=== PATIENT | male | born 1975 | race Caucasian/White ===

== ENCOUNTER 2022-01-06 15:46 | Emergency (ER) | payer SELFPAY ==
[2022-01-06 15:48] VITALS: BP 133/66; PULSE 121; RESP 20; TEMP 36.9; O2SAT 95
--- NOTE | 2022-01-06 15:54 | ED.GENADUL_ITS ---
Discharge Plan Disposition Patient Disposition: HOME Condition: Stable Discharge Details Clinical Impression: Delusional disorder Primary Care Provider: None,None ED Provider: Mike Sesay Home Meds and New Rx's Prescriptions: No Action No Known Home Meds Discharge Instructions Additional Instructions: At this time you have declined any work-up in the ER including IV access, laboratory values, urinalysis, etc. Our mental health team has evaluated you and you have declined any voluntary placement and are now requesting discharge. Please call the recommendations of the mental health team. Please watch for new or worsening symptoms and return to the ER for any concerns. Discharge Data Discharge Date/Time-TO BE ENTERED AT DEPARTURE: 01/06/22 19:00 Medical Decision Making This is a 46-year-old gentleman who presents via EMS reporting he had food poisoning earlier in the week and is requesting oral orange juice Tylenol or Benadryl now. Per EMS both they and [facility] police have had interactions with the patient for the past few days, concerned that he may have schizophrenia and noncompliant. Clinically he appears well, nontoxic, no acute distress. He is refusing IV access, or any additional work-up. He has difficulty engaging in his HPI and discusses his critical views, his parents political views, the fact that his grandfather was in World War II, that he has been attempting to find jobs a local [employer], etc. He was witnessed ambulating to the restroom without difficulty and he was drinking water without difficulty. We offered him apple juice as he did not have orange juice and he became upset, declined the apple juice and then the Tylenol. Patient is requesting discharge. He denies any suicidal or homicidal ideations. I do believe that he would benefit from a mental health evaluation; however, he does not appear to pose an immediate threa t to himself or others. Mental health evaluation completed, please see their note. Patient does not wish to seek voluntary placement. He does not meet criteria for involuntary placement. He is awake, alert x3, and he does appear to have capacity to make his own decisions. He does not appear to be under any influence this. He once again is requesting discharge. He has forward thinking, states that he would like to get up to [place] and go to [facility] and then do some camping. Again he denies any suicidal or homicidal ideations. He declines any medical work-up here in the ER Standard discharge and return precautions were provided. Patient understands, is agreeable to this plan, and has no additional questions or concerns upon discharge. This documentation was generated using [employer] system, please disregard any oddities of phrase or misspellings. HPI General Mode of arrival: EMS . Date/Time Provider Initiated Documentation: 01/06/22 15:47 . Limitations to Documentation: no limitations . Information obtained by: patient and EMS . HPI Narrative: This is a 46-year-old gentleman who denies any significant past medical history, presenting to the ER for a self-reported concern of food poisoning earlier in the week; however, EMS reports concern for history of schizophrenia and nonmedical compliance. Apparently the patient has had several encounters with both EMS and [facility] police over the past few days. Patient denies any recent trauma. Patient is currently requesting oral orange juice or lemonade and an oral Benadryl. He reports occasional mild abdominal pain but denies any pain currently. Denies any fever, headache, chest pain, vomiting or diarrhea. Denies change of bowel or bladder function. Patient denies smoking, alcohol use, or drug use. Patient is refusing an IV and only wants oral intake. Unfortunately he is a rather vague and poor historian which makes his HPI rather difficult. Related Data Home Medications Medication Instructions Recorded Confirmed Unknown [No Known Home Meds] 01/06/22 01/06/22 Allergies Allergy/AdvReac Type Severity Reaction Status Date / Time bee venom protein (honey bee) Allergy Unverified 01/06/22 15:53 General Stated Complaint: GenMedical ISAI: 3 Review of Systems Constitutional Constitutional: Denies fatigue, Denies fever(s), Denies headache(s) and Denies weakness Eyes Eyes: Denies change in vision ENT Ears, Nose, Mouth, and Throat: Denies headache(s) and Denies neck pain Cardiovascular Cardiovascular: Denies chest pain and Denies dyspnea Respiratory Respiratory: Denies dyspnea Gastrointestinal Gastrointestinal: Reports abdominal pain (Earlier in the week, resolved now) Musculoskeletal Musculoskeletal: Denies back pain and Denies neck pain Integumentary/Breasts Skin/Breast: Denies rash Neurologic Neurologic: Denies headache(s) and Denies weakness Psychiatric Psychiatric: Denies homicidal ideation and Denies suicidal ideation Endocrine Endocrine: Denies fatigue PFSH All Active Problems Delusional disorder (Acute) Social History Smoking/Tobacco Use Status: Never Smoking risk assessment performed?: Yes Substance use type: does not use Additional Social history: patient states he is homeless. Exam Const General: cooperative, healthy appearing, comfortable and no acute distress Orientation: alert, awake and oriented x3 HENMT Head: normal to inspection, normocephalic and atraumatic Face and sinus: normal facial exam Mouth: moist mucous membranes Eyes General: appearance normal, both eyes and all related structures Conjunctivae: conjunctivae normal Neck Neck: normal visual inspection, full ROM, no meningeal signs, trachea midline and supple Resp Effort & Inspection: normal respiratory effort and able to speak in complete sentences Auscultation: clear to auscultation bilaterally Cardio Rate: tachycardic (108) Rhythm: regular rhythm GI Inspection: normal to inspection Palpation: soft, not firm, no guarding, no pulsatile masses and nontender Back/Spine/Pelvis Back: No back tenderness Skin General skin exam: no rashes or lesions noted Neuro General: patient alert, patient awake, patient oriented x3, moves all extremities and no focal motor deficits Cognition: normal cognition Speech: speech normal Gait: normal gait Motor: muscle tone normal throughout Sensory Exam: no sensory deficits noted Extrem General: normal to inspection, full ROM, capillary refill normal, no pedal edema and no calf tenderness Psych Appearance: grossly normal Mental Status: mental status grossly normal Speech and Movement: pressured speech Mood: anxious mood Affect: animated Attitude: guarded Thought Process: flight of ideas, loose association and tangential Thought Content: delusions, no homicidality and suicidality Insight: fair Judgment: fair Course Vital Signs Vital signs: Vital Signs Temperature 36.9 C 01/06/22 15:48 Pulse 121 H 01/06/22 15:48 Respiratory Rate 01/06/22 15:48 Blood Pressure 133/66 01/06/22 15:48 Pulse Oximetry 95 01/06/22 15:48 Temperature 36.9 C 01/06/22 15:48 Temperature Source Skin 01/06/22 15:48 Pulse 121 H 01/06/22 15:48 Respiratory Rate 01/06/22 15:48 Blood Pressure 133/66 01/06/22 15:48 Blood Pressure Position Right Lateral 01/06/22 15:48 Pulse Oximetry 95 01/06/22 15:48 Oxygen Delivery Method Room Air 01/06/22 15:48 Oxygen Flow Rate 0 01/06/22 15:48 Comment 01/06/22 15:48
[2022-01-06 15:55] VITALS: RESP 20
== END 2022-01-06 19:00 | disposition home or self-care (01) ==
PROVIDERS: Emergency Provider Physician Assistant
DX: F22 Delusional disorders (principal)
CPT/HCPCS: 80053; 87635; 96360; 99284; 80320; 80329; 84443; 85025

== ENCOUNTER 2022-01-06 19:56 | Emergency (ER) | payer SELFPAY ==
--- NOTE | 2022-01-06 21:23 | PDOC.MHCN_ITS ---
Date of service: 01/06/22 Time of Service: 18:00 [facility] Emergency Note Release [facility] release signed:: No Reason for Visit Client arrived at [facility] ED via [facility]. Per ED staff report [facility] received multiple phone calls from concerned citizens and client was found at a nearby car dealership and was disoriented. EMS staff report that client is diagnosed with Schizophrenia and is non-med compliant. In the last 2 weeks has the pt presented for ES prior to today?: No Client Information Client is: New Well Housed: No,status: Homeless Non Suicidal Self Injury Current: No History: No Safety Risk/Harm to Self or Others Current Ideation to Harm Self or Others: No Risk: Does risk to harm exist?: No Risk: N/A Duty to warn indicated: No Asssessment/Mental Status Appearance: Disheveled Attitude: Guarded Behavior: Unremarkable Speech: Pressured Affect: Expansive and Cogruent with mood Mood: Irritable Thought process: Loose associations and Flight of ideas Hallucinations: No Delusions: yes, Bizarre Attention: Wandering Perception: Not impaired Orientation: Fully orientated Memory: Intact Insight: Fair Judgement: Fair Neurovegetative Symptoms Sleep: No change Appetitie: No change Interests: No change Energy: No change Libido: Not applicable Substance Use: Do you use nicotine?: No Have you used substances in the last 7 days?: No Additional Issues: Assaultive/Threatening Behavior: No Medical Concerns: Yes Client engaged in active self harm w/weapon: No Threatening to run away: No Child reported abuse/neglect: No Voluntarily presenting for services: Yes Domestic violence is a concern: No Extreme Psychosis or extreme behavior is present: No Impression Client presents as delusional, however is able to answer this casualty underwriter when asked what today's date, time, and where he is. When asked by this casualty underwriter what brought him to the ED, he states: I was weak I thought I had food poisoning earlier this week, I felt sick, and my legs were tired and felt like they were going to give out. Per ED staff report client refused blood work or IV fluids and would only take an oral antibiotic and orange juice. 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 I have been traveling [place] [facility], I typically have enough money to get a cheap hotel for a couple of days and then I live outside after. This casualty underwriter had phone conversation with [facility], who reports that they had interaction with client earlier in this week and he was hospitalized in the ICU at [facility] due to high blood sugars as a result of his diabetes. When this casualty underwriter asked client about his diabetes, he states: I don't have diabetes it as a miss diagnosis, I used to lift weights and don't anymore. Client then states can they just discharge me, this casualty underwriter asked client if he would be willing to get blood word before being discharged and he refused stating: no I am fine. Resources [facility] reviewed and given:: [id number] Plan/Disposition Recommended Disposition: [facility] Services (Client refused when offered) [facility] Services: Other (Client refused outpatient services). Plan: Client appears to be presenting with delusional thinking, however refuses outpatient or inpatient services when offered by this casualty underwriter. At this time client does not meet criteria for an involuntary hold. Client refuses intake paperwork as well as services offered through [facility] at this time. This casualty underwriter is able to get phone number from client and will check-in with client this weekend on both Sunday and Sunday. Client stated to this casualty underwriter that he will be getting a taxi to [facility] in [place] so he can buy a new sleeping bag. [facility] ES will follow-up with client through the weekend and continue to offer outpatient services through [facility]. Person reported agreement to plan: Yes Reports/communication Outcome discussed with: ED/Personnel (Verbal passover given to ED provider Chuy Sesay. ) Final Disposition/Discharge Transportation Checklist completed and faxed: No
--- NOTE | 2022-01-06 22:03 | NUR.NOTE ---
patient name entered in errorNursing Note:
--- NOTE | 2022-01-17 10:00 | PDOC.MHPN2 ---
Date of service: 01/17/22 Time of Service: 10:00 Mental Health Emergency Note Release [facility] release signed:: No Reason for Visit Client on EE status at [facility], needs 1 daily reassessment and 1 collateral contact from nurse/doctor. In the last 2 weeks has the pt presented for ES prior to today?: No Client Information Client is: New Well Housed: No,status: Homeless Non Suicidal Self Injury Current: No History: No Safety Risk/Harm to Self or Others Current Ideation to Harm Self or Others: No Risk: Does risk to harm exist?: No Risk: Moderate Risk Duty to warn indicated: No Asssessment/Mental Status Appearance: Disheveled and Poor hygiene Attitude: Cooperative Behavior: Repetitive movements Speech: Normal Affect: Expansive and Cogruent with mood Mood: Elevated, Stressed and Anxious Thought process: Flight of ideas, Circumstational and Tangential Hallucinations: yes, Auditory Delusions: yes, Persectory/Paranoid Attention: Wandering and Poor concentration Perception: Not impaired Orientation: Fully orientated Memory: Intact Insight: Poor Judgement: Poor Neurovegetative Symptoms Sleep: No change Appetitie: No change Interests: No change Energy: No change Libido: Not applicable Substance Use: Have you used substances in the last 7 days?: No Additional Issues: Assaultive/Threatening Behavior: No Medical Concerns: Yes Client engaged in active self harm w/weapon: No Threatening to run away: No Child reported abuse/neglect: No Voluntarily presenting for services: No Domestic violence is a concern: No Extreme Psychosis or extreme behavior is present: Yes Plan/Disposition Recommended Disposition: Hospitalization (BR: Declined (med), WC: Too acute, [facility]: Capacity, [facility]: Unsure.) facilities contacted. Facilities contacted if Applicable [facility] Not accepted, Medical reasons [facility] Not accepted, Other (Have not heard back from [facility] Not accepted, Other, [facility] Not accepted, Other [facility] Not accepted, Acuity Reports/communication Outcome discussed with: ED/Personnel
== END 2022-01-06 20:07 ==
DX: Z53.21 Procedure and treatment not carried out due to patient leaving prior to being seen by health care provider (principal)

== ENCOUNTER 2022-01-09 09:39 | Emergency (ER) | payer SELFPAY ==
[2022-01-09] VITALS (9 sets, daily range): BP systolic 116–149; BP diastolic 82–98; PULSE 89–163; TEMP 36.8; O2SAT 94–97
--- NOTE | 2022-01-09 10:19 | ED.GENADUL_ITS ---
Discharge Plan Disposition Patient Disposition: AGAINST MEDICAL ADVICE Condition: Fair Discharge Details Clinical Impression: Acute shoulder pain Primary Care Provider: Unknown,Unknown ED Provider: Tricia Rausch Home Meds and New Rx's Prescriptions: No Action diphenhydramine HCl [Benadryl] 25 mg Capsule 25 mg PO HS PRN PRN Discharge Instructions Instructions: Shoulder Pain (ED) Additional Instructions: As discussed, your right shoulder x-rays are reassuring here today with no evidence of fracture or dislocation. As we discussed, this may be associated with frozen shoulder which can be painful and also limit your range of motion. Please try to encourage range of motion of the shoulder is much as possible. Referral for physical therapy is also attached. Please call at number listed above to schedule follow-up appointment. As we discussed, I am concerned that you have some changes on your EKG that I wanted to evaluate further with blood work. You have declined this service today. Please note you may return anytime should you wish to have further evaluation of this. You have declined a referral to local primary care. If you change your mind, please call the hospital at [phone] and asked to speak with care management team and they can help arrange primary care follow-up. You have also declined assistance with housing. Know that you may call 211 at any time to discuss other housing options. If you develop any fever/chills, chest pain, shortness of breath, inability stay hydrated or any new/worsening symptoms please seek care urgently once again. Otherwise, you may use Tylenol and ibuprofen to help with your shoulder pain. Please try to avoid heavy lifting with that arm and please try to work on range of motion exercises much as possible Stand Alone Forms: Physical Therapy Referral Discharge Data Discharge Date/Time-TO BE ENTERED AT DEPARTURE: 01/09/22 15:22 Medical Decision Making Patient is a 46-year-old male presenting today with chief complaint of right shoulder pain x2 weeks. He reports that this began after carrying a heavy backpack for quite some time. Patient reports that he is homeless, says he has spent amount of money per month and recently began running out of this. She denies any known trauma. No fevers or chills. Denies any cough or cold. Denies any rash. No numbness or tingling. Patient also reports that she slept in her brain last night and suffered macerated tissue to his fingers and toes. Denies rash elsewhere. No other pain. Denies any chest pain or shortness of breath. Denies fevers/chills. Denies numbness/tingling. States he gets fincances from his parents who are in [place]. He denies SI/HI or other thoughts of self harm. On exam, patient appears nontoxic. His vital signs are stable. His feet were ch juan carlos and wet, we do have a warming blanket on these. Because seems to be associated with him having wet shoes overnight. He does have macerated tissue on his thumb and index finger as well as both feet at the great toe. Normal cardiac exam, lungs are clear. Abdomen is benign. No lower extremity edema noted. Quite guarded of the right shoulder. 2+ distal pulses, intact sensation. Full range of motion of the elbow, wrist, hand. However, any type of movement of the shoulder resulted in the patient actively guarding against this indicating the anterior aspect of the shoulders. Point of tenderness. No pain is elicited with palpation. Is not warm, erythematous or swollen. No break in the skin. Patient's story seems slightly unusual as it seems to change and his chief complaint is not always consistent. I am concerned that some of this may be associated with his poor housing and that he is seeking help for this. I have contacted our care managers to come evaluate the patient as well as assist in this and Possible to set up more stable housing for the patient. Regard to the right shoulder, will obtain x-ray to evaluate for any bony abnormality. While patient not having exertional symptoms and denies any chest pain or shortness of breath, I did consider this potentially being an ACS mimic particularly if the patient is a high risk patient given his current housing situation. We will give Tylenol for his shoulder discomfort. As the patient has limited access to food and fluids, will assess for any electrolyte abnormalities. He denies any alcohol or illicit drug use. Will give some IV hydration. ECG reviewed by Dr. Sebastian, concerning for flipped T waves. No previous for comparison. Patient states that he was previously in the [facility] and was without routine housing there. Will reach out to [facility] to see if ey have one for comparison. Patient continues to deny CP, SOB, N/V. Denies PMH of cardiac issues. [facility] advised that patient was recently admitted, they will send d/c summary. Patient refuses blood draw or IV placement. Offered US IV and he declines. While he does have some unusual answers, he is A&O x 3 and is answering appropriately. Demonstrates capcity. He states that when recently admitted, he was given diagnoses that he did not agree with such as DM. States that he used to exercise on a routine basis, eats healthy and has no changes with his dietary intake. I advised that I am concerned about his glucose despite his disbelief in the dx, concerned for his heart. He is able to verbalize back to me these concerns and continues to decline blood draw, glucose check- even via finger stick, or IV. Exam is limited by lack of pulmonary inflation and patient arm positioning. HEART: Normal size.? Aorta: Not dilated. PULMONARY VASCULATURE: Normal. LUNGS: Expiratory changes.? Basilar infiltrates cannot be excluded. PLEURAL SPACE: No pleural effusion or pneumothorax. BONE:Unremarkable for age.? IMPRESSION: Limited exam.? Bibasilar atelectasis versus infiltrates. BONES: No acute fracture is present. No bony destructive lesion is seen. JOINTS: No dislocation present. SOFT TISSUE: Normal. IMPRESSION: Unremarkable radiographs of the right shoulder. Discussed with patient. He has no cough, fevers/chills. Denies recent URI symptoms. Care management evaluated hte patient. I am concerned about his overal well being. He is alert and oriented, appropriate, although odd. He has clear goals and wants of treatment. He reports to myself and care management that he has access to money through parents. He did give me permissiont o call dad, I called and left message. He declines help with housing, decline help with finances, access to food. He declines PCP. Again, demonstrates capacity in this decision. Reviewed notes from [facility]. T wave inversions appear to be new from their previous. Had presented to their ED on 12/21/21 for weakness, was disoriented. Had been having body aches, nausea. 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 Of note, patient states that he changed from the [facility] to [employer] as he wants to apply for job at the [employer]. When in the ED, he expressed disbelief in having DM. Was febrile at th. time ofadmission. While he iniitally refused treatment in the ED, he was more accepting as inpatient. While admitted, was diagnosed with mild DKA, nyponatremia, elevated troponin, AMS, thought ot be untreated bipolar. At the time of d/c, patient started on metformin, glipizide, glargine, TID glucose checks, sliding scale lispro. At that time, they had concerns regarding disposition and patient continuing with the plan. Patient was also diagnosed with bacteremia, concluded 9 days of cephalexin. On 12/29, patient was evaluated by their crisis team and advised that they could not hospitalize the patient for psychiatric reasons against his will. He requested bus to [facility] at the time of d/c. While admitted, patient had abdominal CT which was unremarkable. CT head limited d/t motion. Syphilis neg, Tick/Lyme panel negative. He did have elevated troponin. Glucose was routinely elevated with A1C of 11.8. Leukocytosis, Hgb 11.4. Negative COVID. Patient and I again discussed my concerns. We discussed his admission as above. We discussed his ECG findings. We discussed his MH. Patient continued to be clear and demonstrate capcity. He is able to explain why he does not feel that he has DM, his plan for the future. 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 Likes to be in [place] rather than in [place] with family as he likes the cool weather. He wants to go to coffee shop. Has phone and computer with him. Has contact information for parents in event he needs more money. I am concerned that patient has undiagnosed/untreated medical illness that may be acute or acute on chronic. Despite voicing my concerns and patient being able to reiterate this back to me, he does not want any further medical intervention. Patient has capcity to make this decision. He is aware he may return at any time. We discussed care of his shoulder pain. I gave him contact information for local PCP adn other support survises, as did care management and SBIRT. Strict return precautions given, he is leaving the department against m edical advise. Called Dad, Salbador Perez, , with patient permission, to discuss his curent state, my concerns. After patient left against medical advise, dad called back. He states that his son has been diagnosed half way between schizophrenia and bipolar. He reports that he had a mental break down when getting his phd. Dad states, I have been trying to get hime home for the past 15 years. He reports that he was bouncing around from state to state fo several years. He has been helping him financially, has tried to get him into programs. He has been put on [place] in the past but always refuses to take it. Every time Salbador is successful at getting him home, he states that Mike will leave and refuses to stay. He states that he is highly inteligent but continues to refuse treatment or contined care. He states he has, tried everything to get him home and stay in treatment but that nothing is successful. He has a phone and computer. He states that patient is his own guardian. After patient was d/c AMA, MH from [facility] came to EE the patient. We discussed that at this time, patient has capacity to refuse care. I offered for her to evaluate the patient but she has declined. She is concerned that P had been out to see him over the weekend although it was EMS that brought in him in today. EE was being sought as they were concerned he had an unknown psychiatric diagnosis and was homeless. She was offered to see the patient in a room and she declined. HPI General Date/Time Provider Initiated Documentation: 01/09/22 09:49 . Limitations to Documentation: no limitations . Information obtained by: patient, EMS, RN notes reviewed and old records reviewed (requested old records from [facility]) . History of Present Illness 46 year old M presents to the emergency department with the chief complaint of right shoulder pain, described as severe, with intensity rated at 8. Quality is described as burning and aching, and is localized to the right and upper extremity. Patient reports no radiation. Patient started experiencing this week(s) and it has been constant. Immobilization improves symptom(s), Movement worsens symptoms (especially carrying backpack) . Patient notes rash (skin break down from being wet over night); denies confusion, chest pain, cough, diaphoresis, fever/chills, headaches, loss of appetite, malaise, nausea/vomiting, shortness of breath, syncope and weakness. Patient did receive the following treatments prior to arrival, none Related Data Home Medications Medication Instructions Recorded Confirmed diphenhydramine HCl 25 mg capsule 25 mg PO HS PRN PRN 01/09/22 01/09/22 (Benadryl) Allergies Allergy/AdvReac Type Severity Reaction Status Date / Time bee venom protein (honey bee) Allergy Unverified 01/09/22 23:16 General Stated Complaint: GenMedical ISAI: 3 Review of Systems Constitutional Constitutional: Reports as per HPI, Denies chills, Denies fever(s), Denies headache(s), Denies lethargy, Denies poor appetite and Denies weakness Eyes Eyes: Denies change in vision ENT Ears, Nose, Mouth, and Throat: Denies dizziness, Denies headache(s) and Denies disequilibrium Cardiovascular Cardiovascular: Reports as per HPI, Denies dyspnea and Denies dyspnea on exertion Respiratory Respiratory: Reports as per HPI, Denies chest congestion, Denies cough, Denies pain on inspiration, Denies pain with cough, Denies dyspnea, Denies dyspnea on exertion and Denies wheezing Gastrointestinal Gastrointestinal: Reports as per HPI, Denies abdominal pain, Denies diarrhea, Denies nausea and Denies vomiting Genitourinary Genitourinary: Denies system reviewed and no additional complaints, except as documented (denies change in urinary habits) Musculoskeletal Musculoskeletal: Reports as per HPI, Denies abnormal gait and Denies back pain Integumentary/Breasts Skin/Breast: Reports as per HPI Neurologic Neurologic: Reports as per HPI, Denies abnormal gait, Denies behavioral changes (homeless, received money from parents for housing and food), Denies dizziness, Denies headache(s), Denies radicular pain, Denies paresthesias, Denies disequilibrium and Denies weakness Psychiatric Psychiatric: Denies anxiety, Denies behavioral changes (homeless, received money from parents for housing and food), Denies hopelessness, Denies mood swings, Denies panic attacks, Denies visual hallucinations, Denies hallucinations, Denies tactile hallucinations, Denies homicidal ideation and Denies suicidal ideation Allergic/Immunologic Allergic/Immunologic: Denies wheezing PFSH All Active Problems (Updated 01/10/22 @ 07:14 by Romie Robles MD) Schizoaffective disorder (Acute) Uncontrolled diabetes mellitus with hyperglycemia (Acute) Acute shoulder pain (Acute) Medical History (Updated 01/10/22 @ 07:14 by Romie Robles MD) Diabetes mellitus Schizoaffective disorder Surgical History (Updated 01/10/22 @ 01:01 by Romie Robles MD) No significant past surgical history Social History Smoking/Tobacco Use Status: Never Smoking risk assessment performed?: Yes Alcohol Intake: never Additional Social history: Pt is homeless he has been sleeping outdoors for over 3 months now. Exam Const General: cooperative, comfortable, no acute distress, well developed, disheveled and ill appearing chronically Nutritional Appearance: well nourished and overweight Orientation: alert, awake, oriented x3, oriented to person, oriented to place and oriented to time HENMT Head: normal to inspection Ears: hearing grossly normal bilaterally Mouth: moist mucous membranes Eyes General: appearance normal, both eyes and all related structures Pupils: PERRL and normal by confrontation EOM: EOM intact bilaterally Neck Neck: normal visual inspection, full ROM, no lymphadenopathy and no meningeal signs Chest Chest: normal inspection of the chest, normal palpation of entire chest wall and no crepitus Resp Effort & Inspection: normal respiratory effort, able to speak in complete sentences and no respiratory distress Auscultation: clear to auscultation bilaterally, no rales, no rhonchi and no wheezes Cardio Rate: regular rate Rhythm: regular rhythm Heart Sounds: S1 normal and S2 normal GI Inspection: normal to inspection, no edema and non-distended Palpation: soft, no hepatosplenomegaly, not firm, no guarding, not rigid and nontender Auscultation: normal bowel sounds Back/Spine/Pelvis Back: no CVA tenderness Thoracic/Lumbar Spine: thoracic and lumbar spine normal to inspection Skin General skin exam: other (wet, sloughing skin to thumb/index tip bilaterally, great toes) Neuro General: patient alert, patient awake and patient oriented x3 Cranial Nerves: CN's II-XI intact bilaterally Cognition: normal cognition Speech: speech normal Gait: normal gait Motor: muscle tone normal throughout, strength 5/5 throughout, no pronator drift and no movement abnormalities noted Coordination: [id number] test normal and otfe-rh-hyvb test normal Extrem General: abnormal to inspection (skin breakdown as above), capillary refill normal, no pedal edema, no calf tenderness and normal gait Shoulder/upper arm images: 1. frantz of maximal tenderness as indicated by the patient. No pain with palpation. Limited ROM with active and passive ROM. Full ROM of elbow, wrist, hand. 2+ distal pulses. Sensation intact. Neuro exam WNL with normal strength. No deformity. No erythema, warmth, fluctuance, drainage. Psych Appearance: grossly normal and disheveled Mental Status: mental status grossly normal Speech and Movement: speech and movement normal (clear answers but unusual pauses in speech pattern) Mood: congruent mood Affect: indifferent Attitude: cooperative and guarded Thought Process: normal Thought Content: normal, no homicidality and suicidality Insight: fair Judgment: fair Course Vital Signs Vital signs: Vital Signs Temperature 36.8 C 01/09/22 09:39 Pulse 98 H 01/09/22 09:39 Blood Pressure 116/96 H 01/09/22 09:39 Pulse Oximetry 97 01/09/22 09:39 Temperature 36.8 C 01/09/22 09:39 Temperature Source Oral 01/09/22 09:39 Pulse 98 H 01/09/22 09:39 Respiratory Effort Non-Labored 01/09/22 10:01 Respiratory Depth Normal 01/09/22 10:01 Respiratory Pattern Normal 01/09/22 10:01 Blood Pressure 116/96 H 01/09/22 09:39 Pulse Oximetry 97 01/09/22 09:39 Oxygen Delivery Method Room Air 01/09/22 09:39 Oxygen Flow Rate 0 01/09/22 09:39 Pain Level 8 01/09/22 09:39
--- NOTE | 2022-01-09 10:30 | RT.EKG_ITS ---
APPROVED REPORT Exam: Resting ECG Reason for Exam: shoulder pain Patient Location: E HR:98 bpm ECG Measurements Heart Rate 98 AXIS SD 117 P 53 QRSd 88 QRS 61 QT 390 T 199 QTc 499 Conclusion Sinus rhythm...normal P axis, V-rate 60- 99 Probable left atrial enlargement...P >50mS, <-0.10mV V1 Abnormal T, consider ischemia, diffuse leads...T <-0.20mV, ant/lat/inf no STEMI, non-diagnostic EKG I have reviewed and interpreted ECG and agree with software generated interpretation.
--- NOTE | 2022-01-09 10:30 | DI.RAD_ITS ---
Exam(s) XR SHOULDER RT COMPLETE 2+V EXAM: XR SHOULDER RT COMPLETE 2+V CLINICAL HISTORY: anterior pain. TECHNIQUE: 2D digital imaging was performed. Five views. COMPARISON: No exams were available for comparison FINDINGS: BONES: No acute fracture is present. No bony destructive lesion is seen. JOINTS: No dislocation present. SOFT TISSUE: Normal. IMPRESSION: Unremarkable radiographs of the right shoulder. DATA REPOSITORY: RADIATION DOSE DELIVERED:
--- NOTE | 2022-01-09 10:30 | DI.RAD_ITS ---
Exam(s) XR CHEST 2V PA LATERAL EXAM: XR CHEST 2V PA LATERAL CLINICAL HISTORY: shoulder pain TECHNIQUE: 2D digital imaging was performed. COMPARISON: CR XR SHOULDER RT COMPLETE 2+V from 01/09/2022 FINDINGS: Exam is limited by lack of pulmonary inflation and patient arm positioning. HEART: Normal size. Aorta: Not dilated. PULMONARY VASCULATURE: Normal. LUNGS: Expiratory changes. Basilar infiltrates cannot be excluded. PLEURAL SPACE: No pleural effusion or pneumothorax. BONE:Unremarkable for age. IMPRESSION: Limited exam. Bibasilar atelectasis versus infiltrates. DATA REPOSITORY: RADIATION DOSE DELIVERED:
[2022-01-09] MEDS: Acetaminophen 500 MG TAB 1000 MG PO (11:06)
--- NOTE | 2022-01-09 17:51 | PDOC.ERCMPRO ---
- If Service Date Differs Date of service: 01/09/22 Time of Service: 17:51 Care Management Progress Note CM consulted by provider due to Yadiel's presentation, lack of social supports, housing etc. Yadiel closed his eyes when speaking to CM, and stated everyone is asking me all these questions. He reviewed information r/t natural supports; parents reside in [facility] [place] and provide financial support. Yadiel reports coming to [facility] seeking employment and having funds at that time to stay in hotels. He reports running out of money but does not share where he has been staying. When CM inquired to his plan he reported calling 211 but shares he was ineligible the last time he called. When this information was reviewed he reported he had a number in his backpack, he could call via the cellphone in his backpack. He declined further support, and shared he did not want to call 211 at this time. He also reported not wanting to attach to PCP at this time. RAFIQ reviewed above with ROMAIN Lundy.
--- NOTE | 2022-01-09 23:22 | PDOC.MHCN_ITS ---
Date of service: 01/09/22 Time of Service: 23:00 Mental Health Emergency Note Release [facility] release signed:: No Reason for Visit MH Warrant. Please see warrant for more information. In the last 2 weeks has the pt presented for ES prior to today?: Yes, presented at ([facility], [facility], [facility] ED and ED at another facility Client Information Client is: New Well Housed: No,status: Homeless Unstable housing Non Suicidal Self Injury Current: No History: No Safety Risk/Harm to Self or Others Current Ideation to Harm Self or Others: No Risk: Does risk to harm exist?: yes. Access to means: No. Risk: High Risk Duty to warn indicated: No Asssessment/Mental Status Appearance: Disheveled and Poor hygiene Attitude: Cooperative and Guarded Behavior: Poor impulse control, Agitated and Gait disturbances Speech: Pressured, Loud and Incoherent Affect: Flat Mood: Euthymic Thought process: Racing, Loose associations and Tangential Hallucinations: yes, (Client appears to be experiencing hallucinations, as he stops conversation to mumble to himself and stare off into the distance. ) Auditory Delusions: No Attention: Poor concentration Perception: Derealization Orientation: Disoriented in (Client appears to be disoriented x4. Occassionally client shows orientation to place. ) Time, Place, Person and Situation Memory: Impaired in: Immediate and Recent Insight: Poor Judgement: Poor Neurovegetative Symptoms Sleep: Decrease Appetitie: No change Interests: No change Energy: No change Libido: Not applicable Substance Use: Do you use nicotine?: No Have you used substances in the last 7 days?: No Additional Issues: Assaultive/Threatening Behavior: No Medical Concerns: Yes Client engaged in active self harm w/weapon: No Threatening to run away: No Child reported abuse/neglect: No Voluntarily presenting for services: No Domestic violence is a concern: No Extreme Psychosis or extreme behavior is present: Yes Impression Client presents with poor insight and judgement and has continuously demonstrated an inability to manage his mental health symptoms and medical needs independently, or with community supports. Client is presenting with symptoms that are consistent with his diagnosis of schizoaffective disorder, including disorganized thought process, odd behaviors, impaired communication and possible hallucinations. Yadiel is refusing prescribed medications, his insulin, and voluntary treatment options. Due to persistent and pervasive mental illness and corresponding decompensation concerns, Yadiel should be considered as a person in need of short-term intensive treatment to stabilize symptoms to a manageable level. Resources Reosurces reviewed and given:: 988, Crisis Bed, [facility] and Other Plan/Disposition Recommended Disposition: Hospitalization No and Other (Second certification by psychiatrist to determine whether or not the client requires involuntary inpatient treatment. ). Plan: Client will remain at [facility] to wait for screening by psychiatrist to determine whether or not the client requires involuntary inpatient treatment. Person reported agreement to plan: No Reports/communication Outcome discussed with: ED/Personnel
== END 2022-01-09 15:22 | disposition left against medical advice (07) ==
PROVIDERS: Emergency Provider Physician Assistant
DX: M25.511 Pain in right shoulder (principal); E11.9 Type 2 diabetes mellitus without complications; Z59.00 Homelessness unspecified; Z53.20 Procedure and treatment not carried out because of patient's decision for unspecified reasons; L98.8 Other specified disorders of the skin and subcutaneous tissue; R94.31 Abnormal electrocardiogram [ECG] [EKG]
CPT/HCPCS: 80053; 93005; 96360; 99284; 71046; 73030; 83735; 84484; 85025; 93010

== ENCOUNTER 2022-01-09 22:56 | Emergency (ER) | payer SELFPAY ==
[2022-01-09 23:12] VITALS: BP 157/85; PULSE 118; RESP 20; TEMP 37.3; O2SAT 92
--- NOTE | 2022-01-09 23:30 | RT.EKG_ITS ---
APPROVED REPORT Exam: Resting ECG Reason for Exam: tachycardia Patient Location: E HR:111 bpm ECG Measurements Heart Rate 111 AXIS KS 123 P 52 QRSd 84 QRS 65 QT 377 T 233 QTc 513 Conclusion Gender not entered, assumed to be male for purpose of ECG interpretation Sinus tachycardia...rate> 99 Probable left atrial enlargement...P >50mS, <-0.10mV V1 Abnormal T, consider ischemia, diffuse leads...T <-0.20mV, ant/lat/inf Prolonged QT interval...QTc >500mS I have reviewed and interpreted ECG and agree with software generated interpretation. There are no significant changes compared to prior EKG performed on 01/09/2022 at 10:42.
--- NOTE | 2022-01-09 23:34 | ED.GENADUL_ITS ---
Discharge Plan Disposition Patient Disposition: [facility] Condition: Serious Discharge Details Clinical Impression: Schizoaffective disorder, Diabetes mellitus, Anemia Primary Care Provider: Unknown,Unknown ED Provider: Hi Cardoza Home Meds and New Rx's Prescriptions: No Action diphenhydramine HCl [Benadryl] 25 mg Capsule 25 mg PO HS PRN PRN Discharge Data Discharge Date/Time-TO BE ENTERED AT DEPARTURE: 01/25/22 18:42 Medical Decision Making <Romie Robles MD - Last Filed: 01/10/22 07:14> Patient presenting on emergency evaluation. In regards to his mental health I do feel the patient is a harm to self due to his mental condition and lack of insight and judgment and ability to care for self. He did agree to labs, EKG, IV, fluids. Of note he is markedly hyperglycemic with a glucose of 751. Sodium is low but corrects to 132. Bicarb is normal and there are no ketones in his urine. He has fairly significant anemia which is microcytic. Potassium is normal. BUN and creatinine are somewhat elevated likely due to to dehydration. Liver function is okay. TSH elevated but free T4 negative. Alcohol, acetaminophen, salicylate, drug screen all negative. At this point we will plan for IV fluid hydration and regular insulin subcutaneous until we have better control of his blood glucose. Per [facility] records he is supposed to be taking oral medications in attempt to control blood sugar. After 2 L normal saline infused repeat fingerstick is just above 500. We will continue saline at 200/h. Ordered for 8 units regular insulin subcutaneous. We will repeat BMP at 7 AM. Medical Records Medical records reviewed: Yes I reviewed the patient's medical records. Medical records narrative: Obtained records from [facility] Lab Data Lab results reviewed: Yes I reviewed the patient's lab results. ECG Data Attestation: I personally reviewed and interpreted this ECG (s) as follows: Prior ECG tracings: available for review Interpretation: See EKG. <Greg Mart MD - Last Filed: 01/27/22 16:53> Lab Data Lab results narrative: Received signout from Dr. Robles for the day shift of January 10. Following fluids and insulin the patient's chemistries improved. Sodium emmanuelle to 131, potassium 3.9, chloride 95, bicarb 27, BUN 18, creatinine 1.0. Patient ate a morning meal, was given metformin which I have scheduled twice daily, and additional 5 units of regular insulin with the morning meal. He was given Ativan both for nausea and anxiety. He states to me that he does not take ongoing psychiatric medications. Labs: Laboratory Results - last 24 hr 01/09/22 01/09/22 01/09/22 23:30 23:30 23:30 WBC 11.22 H RBC 3.32 L Hgb 8.7 L Hct 27.3 L MCV 82 MCH 26.2 L MCHC 31.9 L RDW 13.1 Plt Count 469 H MPV 10.1 Immature Gran % 0.8 Neutrophils % 73.4 Lymphocytes % 16.4 Monocytes % 8.3 Eosinophils % 0.4 Basophils % 0.7 Nucleated RBC % 0.0 Absolute Neutrophils 8.24 H Absolute Lymphocytes 1.84 Absolute Monocytes 0.93 H Absolute Eosinophils 0.04 Absolute Basophils 0.08 Sodium 122 L* Potassium 4.8 Chloride 86 L Carbon Dioxide 27.0 Anion Gap 9.0 BUN 27 H Creatinine 1.6 H Est GFR (CKD-EPI 2020) 53.15 Glucose 751 H* Calcium 8.7 Total Bilirubin 0.2 AST 19 ALT 32 Alkaline Phosphatase 131 H Total Protein 7.8 Albumin 2.3 L TSH 5.96 H Free T4 1.37 Urine Color Urine Clarity Urine pH Ur Specific [place] Urine Protein Urine Ketones Urine Blood Urine Nitrite Urine Bilirubin Urine Urobilinogen Ur Leukocyte Esterase Urine RBC Urine WBC Ur Epithelial Cells Urine Crystals Urine Bacteria Urine Casts Urine Mucus Ur Culture Indicated? Urine Glucose Salicylates < 2.8 Urine Opiates Screen Urine Methadone Screen Acetaminophen < 2 Ur Barbiturates Screen Ur Tricyclics Screen Ur Amphetamines Screen U Benzodiazepines Scrn Urine Cocaine Screen Ur THC Screen Ethyl Alcohol < 3.0 COVID-19 Source 01/10/22 01/10/22 01/10/22 00:05 00:05 00:13 WBC RBC Hgb Hct MCV MCH MCHC RDW Plt Count MPV Immature Gran % Neutrophils % Lymphocytes % Monocytes % Eosinophils % Basophils % Nucleated RBC % Absolute Neutrophils Absolute Lymphocytes Absolute Monocytes Absolute Eosinophils Absolute Basophils Sodium Potassium Chloride Carbon Dioxide Anion Gap BUN Creatinine Est GFR (CKD-EPI 2020) Glucose Calcium Total Bilirubin AST ALT Alkaline Phosphatase Total Protein Albumin TSH Free T4 Urine Color Yellow Urine Clarity Clear Urine pH 6.5 Ur Specific [place] <= 1.005 Urine Protein Negative Urine Ketones Negative Urine Blood Trace-lysed H Urine Nitrite Negative Urine Bilirubin Negative Urine Urobilinogen 0.2 Ur Leukocyte Esterase Negative Urine RBC 0-2 Urine WBC 5-10 Ur Epithelial Cells Few Urine Crystals Negative Urine Bacteria Rare Urine Casts Negative Urine Mucus Negative Ur Culture Indicated? Yes Urine Glucose >=1000 H Salicylates Urine Opiates Screen Negative Urine Methadone Screen Negative Acetaminophen Ur Barbiturates Screen Negative Ur Tricyclics Screen Negative Ur Amphetamines Screen Negative U Benzodiazepines Scrn Negative Urine Cocaine Screen Negative Ur THC Screen Negative Ethyl Alcohol COVID-19 Source Nasal/Nares 01/10/22 07:30 WBC RBC Hgb Hct MCV MCH MCHC RDW Plt Count MPV Immature Gran % Neutrophils % Lymphocytes % Monocytes % Eosinophils % Basophils % Nucleated RBC % Absolute Neutrophils Absolute Lymphocytes Absolute Monocytes Absolute Eosinophils Absolute Basophils Sodium 131 L D Potassium 3.9 Chloride 95 L Carbon Dioxide 27.0 Anion Gap 9.0 BUN 18 Creatinine 1.0 Est GFR (CKD-EPI 2020) 93.42 Glucose 378 H Calcium 8.7 Total Bilirubin AST ALT Alkaline Phosphatase Total Protein Albumin TSH Free T4 Urine Color Urine Clarity Urine pH Ur Specific [place] Urine Protein Urine Ketones Urine Blood Urine Nitrite Urine Bilirubin Urine Urobilinogen Ur Leukocyte Esterase Urine RBC Urine WBC Ur Epithelial Cells Urine Crystals Urine Bacteria Urine Casts Urine Mucus Ur Culture Indicated? Urine Glucose Salicylates Urine Opiates Screen Urine Methadone Screen Acetaminophen Ur Barbiturates Screen Ur Tricyclics Screen Ur Amphetamines Screen U Benzodiazepines Scrn Urine Cocaine Screen Ur THC Screen Ethyl Alcohol COVID-19 Source HPI <Romie Robles MD - Last Filed: 01/10/22 07:14> General Mode of arrival: ambulatory . Date/Time Provider Initiated Documentation: 01/09/22 23:34 . Information obtained by: patient, RN notes reviewed and old records reviewed . HPI Narrative: Patient is brought in by police on a warrant for emergency evaluation. Per mental health worker patient has a prior history of schizoaffective disorder. He is originally from [place]. He has been traveling up and down the [facility] for a few years now. Patient with admission at [facility] earlier this month for cellulitis, bacteremia, uncontrolled diabetes. His care was hindered to some degree by his schizoaffective disorder. Ultimately did receive treatment for his medical condition and was discharged. He has subsequently made his way to [facility] where he is already had contact with mental health, [facility], [facility]. At this time patient is on warrant for emergency evaluation. At the time of my evaluation the patient is mostly calm and cooperative. He is extremely tangential, disorganized, unable to remain focused. His speech is rapid but fluent. Freely admits to not taking any of his medications. Does state that he feels tired and dehydrated. His last interaction with [facility] was tonight while the warrant was being processed. Patient was observed to be walking down the middle of the street urinating as he was going seemingly oblivious to traffic or danger. He was taken into protective custody, warrant completed, patient brought here for emergency evaluation. Related Data Home Medications Medication Instructions Recorded Confirmed diphenhydramine HCl 25 mg capsule 25 mg PO HS PRN PRN 01/09/22 01/09/22 (Benadryl) Allergies Allergy/AdvReac Type Severity Reaction Status Date / Time bee venom protein (honey bee) Allergy Unverified 01/09/22 23:16 General Stated Complaint: PsychEval ISAI: 3 Review of Systems <Romie Robles MD - Last Filed: 01/10/22 07:14> Unobtainable due to mental condition PFSH <Romei Robles MD - Last Filed: 01/10/22 07:14> All Active Problems (Updated 01/22/22 @ 19:41 by Dominic Sebastian MD) Anemia (Chronic) Tinea pedis (Acute) Diabetes mellitus (Chronic) Acute electrocardiogram changes (Chronic) Uncontrolled type 2 diabetes mellitus with hyperglycemia (Acute) Schizoaffective disorder (Acute) Acute shoulder pain (Acute) Medical History (Updated 01/22/22 @ 19:41 by Dominic Sebastian MD) Diabetes mellitus Schizoaffective disorder Surgical History (Updated 01/10/22 @ 01:01 by Romie Robles MD) No significant past surgical history Social History Smoking/Tobacco Use Status: Never Smoking risk assessment performed?: Yes Alcohol Intake: never Additional Social history: Pt is homeless he has been sleeping outdoors for over 3 months now. Exam <Romie Robles MD - Last Filed: 01/10/22 07:14> Narrative Exam Narrative: Const: WDWN male in NAD but dishelved, disorganized and dirty. HEENT: NC/AT. Normal facial exam. Eyes: Normal conjunctiva and sclera. Neck: Supple. Trachea midline. Lungs: Normal respiratory effort. Lungs are clear. Cor: RRR without murmur/gallop. Good radial pulses. Tachycardic. GI: Soft. NT/ND. No guarding or rebound. Back: Normal ROM. Neuro: A+O x 2. Normal speech but tangential and rapid. Disorganized thinking and unable to maintain focus. Cranial nerves II - XII grossly intact. No gross motor or sensory deficit. Ext: No C/C. Bilateral pedal edema. Skin: Warm and dry without rash or erythema. Some open sores possible insect bites. Psych: Flat affect but normal mood. Rapid speech with inability to remain focused and disorganized thought process. Lacks insight into his condition and lacks judgment in regards to his own wellbeing. Course <Romie Robles MD - Last Filed: 01/10/22 07:14> Vital Signs Vital signs: Vital Signs Temperature 99.2 F 01/09/22 23:12 Pulse 118 H 01/09/22 23:12 Respiratory Rate 20 01/09/22 23:12 Blood Pressure 157/85 H 01/09/22 23:12 Pulse Oximetry 92 01/09/22 23:12 Temperature 99.2 F 01/09/22 23:12 Temperature Source Oral 01/09/22 23:12 Pulse 118 H 01/09/22 23:12 Respiratory Rate 20 01/09/22 23:12 Blood Pressure 157/85 H 01/09/22 23:12 Blood Pressure Position Sitting 01/09/22 23:12 Pulse Oximetry 92 01/09/22 23:12 Oxygen Delivery Method Room Air 01/09/22 23:12 Oxygen Flow Rate 0 01/09/22 23:12 Pain Level 8 01/09/22 23:12 Comment 01/09/22 23:12 Sign Out <Romie Robles MD - Last Filed: 01/10/22 07:14> Sign Out Data: Sign Out Comment: Patient has BMP pending this morning and will need potentially further insulin dosing until blood sugar better controlled. He is on an EE pending second certification. Has been calm and cooperative overnight. Last updated by Romie Robles MD at 01/10/22 07:50 Sign Out Comment: EE. Continues to refuse meds and have outbursts at times but able to be redirected. Continue to monitor overnight while awaiting placement. Last updated by Ila Hernandez DO at 01/13/22 23:03 Sign Out Comment: EE. Awaiting placement. Poorly controlled DM (intermittently not taking his metformin), Given subq insulin this morning with breakfast Last updated by Wally Dove MD at 01/14/22 07:37 Sign Out Comment: ee for decompensated schizophrenia, on sliding scale insulin as he has repeatedly refused metformin Last updated by Hi Cardoza MD at 01/14/22 17:54 Sign Out Comment: No events overnight. Awaiting placement. Last updated by Ila Hernandez DO at 01/15/22 07:02 Sign Out Comment: no events during the day Last updated by Hi Cardoza MD at 01/15/22 18:36 Sign Out Comment: No events overnight. Awaiting placement. Last updated by Ila Hernandez DO at 01/16/22 01:15 Sign Out Comment: Patient signed out to Dr. Dove at time of shift change awaiting inpatient placement. Last updated by Cassandra Sebastian MD at 01/16/22 15:42 Sign Out Comment: EE. Awaiting placement. Mental health to reassess in AM. If other psych patient upstairs gets placed beforehand, consider [facility] admission Last updated by Wally Dove MD at 01/16/22 23:04 Sign Out Comment: Continues on EE and awaiting placement. Still rambling overnight and mildly agitated but overall no issues. Last updated by Romie Robles MD at 01/17/22 08:00 Sign Out Comment: no issues during the day Last updated by Hi Cardoza MD at 01/17/22 18:46 Sign Out Comment: 2nd cert performed. Glucose improved to mid 300's. Last updated by Greg Mart MD at 01/10/22 18:34 Sign Out Comment: No issues overnight. Remains on EE and still continuously t alking to self in the room, periodically becoming somewhat agitated. Overall redirectable and cooperative. Last updated by Romie Robles MD at 01/18/22 07:32 Sign Out Comment: EE. Awaiting placement. Last updated by Dominic Sebastian MD at 01/18/22 16:00 Sign Out Comment: EE. Awaiting placement. Last updated by Ila Hernandez DO at 01/18/22 23:30 Sign Out Comment: Awaiting inpatient psychiatric treatment placement. EE. Last updated by Dominic Sebastian MD at 01/19/22 08:04 Sign Out Comment: still pending placement, no issues during the day Last updated by Hi Cardoza MD at 01/19/22 17:04 Sign Out Comment: Patient stable after my shift. Pending placement. Last updated by Goyo Harding DO at 01/20/22 00:30 Sign Out Comment: No issues overnight, remains stable and unchanged. Last updated by Romie Robles MD at 01/20/22 07:26 Sign Out Comment: no issues during the day Last updated by Hi Cardoza MD at 01/20/22 17:11 Sign Out Comment: code farfan this evening; calmed after we were going to give him meds; awaiting placement Last updated by Wally Dove MD at 01/20/22 23:15 Sign Out Comment: No events overnight. Awaiting placement. Last updated by Ila Hernandez DO at 01/21/22 03:43 Sign Out Comment: Blood sugars better and patient taking his glucophage. Will need to continue to follow and dose with insulin as needed. He is pending placement after 2nd certification yesterday. Last updated by Romie Robles MD at 01/11/22 07:43 Sign Out Comment: Patient awaiting psychiatric treatment placement. Patient intermittently screaming obscenities and specifically stating kill the children repetitively. Patient did have a code valadez earlier this afternoon when he initially refused to go back in his room demanding that we provide his bag. De-escalation was successful and patient has since been cooperative and calm. Last updated by Dominic Sebastian MD at 01/21/22 19:49 Sign Out Comment: No events overnight. Awaiting placement. Last updated by Ila Hernandez DO at 01/22/22 06:29 Sign Out Comment: Awaiting placement. Plan for repeat CBC and chemistry when patient agreeable. Last updated by Dominic Sebastian MD at 01/22/22 19:42 Sign Out Comment: Pt refused lab draw, will reattempt this morning. No other events overnight. Awaiting placement. Last updated by Ila Hernandez DO at 01/23/22 07:03 Sign Out Comment: still pending placement for decompensated schizophrenia Last updated by Hi Cardoza MD at 01/23/22 07:42 Sign Out Comment: will be accepted upstairs for admission if no code greys overnight; EE awaiting placement Last updated by Wally Dove MD at 01/23/22 23:42 Sign Out Comment: No events overnight. Plan is for admission upstairs today if no code farfan. Last updated by Ila Hernandez DO at 01/24/22 02:21 Sign Out Comment: awaiting psych placement. Last updated by Dominic Sebastian MD at 01/24/22 20:12 Sign Out Comment: need doc to doc signout before transport to [place] this evening Last updated by Wally Dove MD at 01/25/22 07:37 Sign Out Comment: Patient signed out to Dr. Cardoza at time of shift change with transfer to [place] pending. Last updated by Cassandra Sebastian MD at 01/25/22 15:05 Sign Out Comment: EE, awaiting placement; Paolafelipeinessa will reconsider if diabetes more controlled Last updated by Wally Dove MD at 01/11/22 17:05 Sign Out Comment: Patient pending psychiatric placement. Patient stable throughout the night. No interventions needed. Last updated by Goyo Harding DO at 01/11/22 23:08 Sign Out Comment: continues to be tangential and talking to self, little sleep, sugars in the 300 range; pending placement. Last updated by Romie Robles MD at 01/12/22 08:21 Sign Out Comment: Patient has continued to have intermittent aggressive outbursts that are not directed at any individuals but has been heard screaming killed their kids. He did agree to take metformin earlier today. I have ordered Risperdal in hopes that he would agree to take this as an antipsychotic. Patient continues to await inpatient psychiatric treatment placement Last updated by Dominic Sebastian MD at 01/12/22 19:52 Sign Out Comment: Continues to be agitated more so this morning than previous. Refusing oral medications but did take IM Zyprexa. Continues to wait for psychiatric bed availability. Last updated by Romie Robles MD at 01/13/22 07:21 Sign Out Comment: Follow-up on medicine consult. Patient awaiting psychiatric inpatient placement. Last updated by Dominic Sebastian MD at 01/13/22 15:41
[2022-01-09 23:52] LABS: Abs Immature Grans 0.09 10^3/uL (0.0-0.06); Absolute Basophil Count 0.08 10^3/uL (0.0-0.2); Absolute Lymphocyte Count 1.84 10^3/uL (1.2-3.4); Absolute Monocyte Count 0.93 10^3/uL (0.1-0.8); Basophils % 0.7; Eosinophils % 0.4; HCT 27.3 % (40.0-50.0); HGB 8.7 g/dL (13.5-17.5); Immature Grans % 0.8; Lymphocytes % 16.4; MCH 26.2 pg (27.0-33.0); MCHC 31.9 % (32.0-36.0); MCV 82 fL (80-95); MPV 10.1 fL (8.0-11.0); Monocytes % 8.3; Neutrophils % 73.4; Platelet Count 469 10^3/uL (130-400); RBC 3.32 10^6/uL (4.36-5.78); RDW 13.1 % (11.8-14.1); RDW-SD 39.7 fL; WBC 11.22 10^3/uL (4.4-10.8)
[2022-01-09 23:55] LABS: Absolute Eosinophil Count 0.04 10^3/uL (0.0-0.7); Absolute Neutrophil Count 8.24 10^3/uL (1.2-6.7)
[2022-01-10 00:02] LABS: Salicylate < 2.8 mg/dL (<2.8)
[2022-01-10 00:05] LABS: Acetaminophen < 2 ug/mL (10-30)
[2022-01-10 00:16] LABS: Source Nasal/Nares
[2022-01-10] MEDS: Normal Saline 1,000 ML 1000 ML IV ×2 (00:16→01:09)
[2022-01-10 00:18] LABS: ALT 32 U/L (16-63); AST 19 U/L (15-37); Albumin 2.3 g/dL (3.4-5.0); Alkaline Phosphatase 131 U/L (46-116); BUN 27 mg/dL (7-18); Bilirubin, Total 0.2 mg/dL (0.2-1.0); CREATININE 1.6 mg/dL (0.70-1.30); Calcium 8.7 mg/dL (8.5-10.1); Chloride 86 mmol/L (98-107); Estimated GFR 53.15 (mL/min/1.73m2); Potassium 4.8 mmol/L (3.5-5.1); TSH (W/Ref FT4) 5.96 uIU/mL (0.36-3.74); Total Protein 7.8 g/dL (6.4-8.2)
[2022-01-10 00:19] LABS: ETHANOL BLOOD < 3.0 mg/dL (<10)
[2022-01-10 00:19] LABS: Bilirubin Negative (Negative); Blood Trace-lysed (Negative); Clarity Clear (Clear); Glucose >=1000 mg/dL (Negative); Ketones Negative (Negative); Leukocyte Esterase Negative (Negative); Nitrite Negative (Negative); Specific Gravity <= 1.005 (1.005-1.025); Urobilinogen 0.2 EU/dL (Up TO 0.2); pH 6.5 (5-8)
[2022-01-10 00:20] LABS: Glucose 751 mg/dL (74-106); Sodium 122 mmol/L (136-145)
[2022-01-10 00:31] LABS: *AMPHETAMINES SCREEN URINE Negative (Negative); *BARBITURATES SCREEN URINE Negative (Negative); *BENZODIAZEPINES SCREEN URINE Negative (Negative); Cannabinoids THC Negative (Negative); Cocaine Screen,Urine Negative (Negative); METHADONE URINE SCREEN Negative (Negative); OPIATES URINE SCREEN Negative (Negative)
[2022-01-10 00:34] LABS: Bacteria Rare HPF (Negative); C & S Indicated? Yes; Casts Negative LPF (Negative); Crystals Negative HPF (Negative); Epithelial Cells Few HPF (Negative); Mucus Negative (Negative); RBC 0-2 HPF (0-2)
[2022-01-10 00:36] LABS: FREE T4 1.37 ng/dL (0.76-1.46)
[2022-01-10 00:37] LABS: Tricyclic Antidepressants Negative (Negative)
[2022-01-10 01:48] VITALS: BP 175/115; PULSE 106; RESP 20; TEMP 36.5; O2SAT 91
[2022-01-10] MEDS: Insulin REGULAR-Human 100 UNITS/ML UNIT 8 UNITS SC (03:05)
[2022-01-10] MEDS: Normal Saline 1,000 ML 200 ML IV (03:05)
[2022-01-10 07:51] LABS: BUN 18 mg/dL (7-18); Calcium 8.7 mg/dL (8.5-10.1); Chloride 95 mmol/L (98-107); Estimated GFR 93.42 (mL/min/1.73m2); Glucose 378 mg/dL (74-106); Potassium 3.9 mmol/L (3.5-5.1); Sodium 131 mmol/L (136-145)
[2022-01-10 08:40] VITALS: BP 160/98; PULSE 98; RESP 17; TEMP 37; O2SAT 93
[2022-01-10] MEDS: Insulin REGULAR-Human 100 UNITS/ML UNIT IV ×2 (09:19→12:14)
[2022-01-10] MEDS: LORazepam 20 MG/10 ML VIAL IVP (09:20)
[2022-01-10] MEDS: metFORMIN 500 MG TAB 1000 MG PO ×2 (09:25→17:55)
[2022-01-10 10:57] LABS: Lithium < 0.2 mmol/l (0.6-1.2)
--- NOTE | 2022-01-10 11:08 | MHPN_ITS ---
Date of service: 01/10/22 Time of Service: 10:40 Mental Health Emergency Note Release [facility] release signed:: No Reason for Visit Mental Health Warrant In the last 2 weeks has the pt presented for ES prior to today?: Yes, presented at [facility] ED Client Information Client is: New Well Housed: No,status: Homeless Unstable housing Non Suicidal Self Injury Current: Yes, Unable to assess, client declined talking with MH Safety Risk/Harm to Self or Others Current Ideation to Harm Self or Others: Yes to self. (Unable to assess, client declined talking with MH) Intent: no, has no intent. Plan: no.does not have a plan. History of suicide attempt: No history of suicide attempt reported Risk: Does risk to harm exist?: No Asssessment/Mental Status Appearance: Disheveled Attitude: Guarded (Unable to assess, client declined talking with MH) Behavior: Other (Unable to assess, client declined talking with MH) Speech: Slurred, Hesitant and Other (Unable to assess, client declined talking with MH) Affect: Other (Unable to assess, client declined talking with MH) Mood: Other (Unable to assess, client declined talking with MH) Thought process: Other (Unable to assess, client declined talking with MH) Hallucinations: yes, Other (Per Dr. Mart and Nurse Luz reports client is presenting with internal stimuli) Delusions: No evidence (Unable to assess, client declined talking with MH) Attention: Poor concentration (Unable to assess, client declined talking with MH) Perception: Other (Unable to assess, client declined talking with MH) Orientation: Disoriented in (Unable to assess, client declined talking with MH) Time (Client declined to speak with MH) Memory: Intact (Unable to assess, client declined talking with MH) Insight: Poor (Unable to assess, client declined talking with MH) Judgement: Poor (Unable to assess, client declined talking with MH) Neurovegetative Symptoms Sleep: No change (Unable to assess, client declined talking with MH) Appetitie: No change (Unable to assess, client declined talking with MH) Interests: No change (Unable to assess, client declined talking with MH) Energy: No change (Unable to assess, client declined talking with MH) Libido: Not applicable Substance Use: Other (Unable to assess, client declined talking with MH) Drug Issues: Other (Unable to assess, client declined talking with MH) Do you use nicotine?: No Have you used substances in the last 7 days?: No Impression Client is currently at [facility] ED on involuntary status. Client was brought to ED by P on MH warrant. Prior to speaking with client this publicity writer gathered collateral from client's MD Greg Mart. Per Brittny's report, this am, client is presenting with internal stimuli, appears with racing thoughts, and trouble focusing. Brittny reports client's diabetes is currently medically controlled, but medical care will need to be continued for client to remain stable. Brittny reports when client is questioned about his MH, client becomes defensive. This publicity writer attempted to reassess client via zoom while client was at [facility] ED. Client refused to speak with . When this publicity writer was asking client questions, client was not responding. Client turned his head away from the screen and closed his eyes. When this publicity writer asked multiple times if he could hear this publicity writer, in a loud manner this client stated this is awkward, I don't want to do this. After attempting to screen client, this publicity writer requested to speak to attending nurse. This publicity writer spoke with nurse Luz Garcia. Jose reports client is presenting with internal stimuli today. Jose reports client was observed having conservation with himself while staring at the wall, speaking in regards to government. Jose reports client wet the bed earlier this morning and was commanding staff clean his sheets and wash his body. Jose reports client was able to be redirected and ended up replacing his own sheets once provided. Jose reports client was given Ativan, metformin, and insulin this morning around 9:20 am. This publicity writer informed Jose referral will be sent out for placement for client once medical information is received. This publicity writer also informed Jose to reach back out to if client is requesting to speak with ES later in the day. Client's second certification for MH warrant is scheduled to take place later today on 01/10 after 5 pm. Plan/Disposition Recommended Disposition: Hospitalization No and Other (waiting on medical information on client to be sent for referrals for involuntary placement ). Plan: Client is to remain in ED until placement is secured for involuntary status of MH warrant. Reports/communication Outcome discussed with: ED/Personnel (Attending Dr. Romie Mart & Nurse Luz Rice )
--- NOTE | 2022-01-10 14:34 | CMSP_ITS ---
- If Service Date Differs Date of service: 01/10/22 Time of Service: 14:34 Care Management Safety Plan Status: Involuntary - Reason for Wait Reason for Wait: Other (2nd Certification by Psychiatrist) CHIEF COMPLAINT: Yadiel presents in the ED via police on a Warrant for Emergency Examination after reportedly walking down the middle of the street and urinating in public. Per [facility], Yadiel is originally from [place] but for the past couple of years he has been traveling up and down the [facility] in search of employment. Volodymyr Aiken, [facility], notes in the Application for Warrant that Yadiel has a diagnosis of schizo-affective disorder and he has previously been psychiatrically hospitalized twice. Since his [facility] at [facility], Yadiel has willingly taken medication and has been mostly cooperative, though he has refused to meet with [facility] via zoom. A Second Certification by Psychiatrist is expected to occur this evening. INVOLUNTARY FOR INPATIENT PSYCHIATRIC STABILIZATION. A safety huddle is held at 15:15 with Jessica, nursing cupola melting supervisor, YESENIA Escobar, and RAFIQ Gomez, in attendance. Safety plan has been established to meet the needs of the patient, and consideration of the care team, to adhere to patient goals, identify restrictions based on behavioral status, address nutrition, and determine allowed personal belongings, tools for hygiene and personal care. Determine level of activity including ambulation, level of supervision, visitors, and determine privileges based on behaviors and level of engagement by pt. SAFETY PLAN: 1. Will remain on SI/HI precautions. In Paper Clothes 2. Will remain in room under direct supervision of one-on-one staff at all times provided by CPSO, MAX, SILVA support technician. 3. May have paper cups, plates, finger foods as well as a cardboard spoon to eat meals. 4. Follow [facility] Management of the Admitted Behavioral Health Patient policy. 5. Comfort bath system only. 6. No personal belongings 7. Visitors: None at this time. 8. Activities: Soft cart items and other activities at RN discretion. 9. Bathroom privileges with escort in the ED. 10. Phone: Limited to legal contacts via cordless hospital phone at RN discretion. 11. Due to INVOLUNTARY status, patient is being held at [facility] by the Department of Mental Health (DM) until 2nd certification by [facility] Psychiatrist can be performed (within 24 hours). Staff will provide de-escalation support (CPI) as needed. If patient wishes to leave [facility], staff will contact [facility] Crisis Screener ([phone]) and On-Call Radio Host ([phone]) as soon as possible. In the event of elopement, notify [facility] Police ([phone]). Patient is currently involuntarily at [facility]. [facility] Frontline Quick Sketch Artist will continue seeking placement. Please contact the Patrol Conductor Radio Host ([phone]) for any needed changes to Safety Plan. Safety plan has been provided to interdepartmental care team. Patient will be transported by wheat and oats flake miller at time of discharge.
--- NOTE | 2022-01-10 14:34 | PDOC.CMSAFED ---
- If Service Date Differs Date of service: 01/10/22 Time of Service: 14:34 Care Management Safety Plan Status: Involuntary - Reason for Wait Reason for Wait: Other (2nd Certification by Psychiatrist) CHIEF COMPLAINT: Yadiel presents in the ED via police on a Warrant for Emergency Examination after reportedly walking down the middle of the street and urinating in public. Per [facility], Yadiel is originally from [place] but for the past couple of years he has been traveling up and down the [facility] in search of employment. Volodymyr Aiken, [facility], notes in the Application for Warrant that Yadiel has a diagnosis of schizo-affective disorder and he has previously been psychiatrically hospitalized twice. Since his arrival at [facility], Yadiel has willingly taken medication and has been mostly cooperative, though he has refused to meet with [facility] via zoom. A Second Certification by Psychiatrist is expected to occur this evening. INVOLUNTARY FOR INPATIENT PSYCHIATRIC STABILIZATION. A safety huddle is held at 15:15 with Jessica, nursing supervisor waterworks, YESENIA Escobar, and RAFIQ Gomez, in attendance. Safety plan has been established to meet the needs of the patient, and consideration of the care team, to adhere to patient goals, identify restrictions based on behavioral status, address nutrition, and determine allowed personal belongings, tools for hygiene and personal care. Determine level of activity including ambulation, level of supervision, visitors, and determine privileges based on behaviors and level of engagement by pt. SAFETY PLAN: 1. Will remain on SI/HI precautions. In Paper Clothes 2. Will remain in room under direct supervision of one-on-one staff at all times provided by CPSO, MAX, SILVA genetic counselor. 3. May have paper cups, plates, finger foods as well as a cardboard spoon to eat meals. 4. Follow [facility] Management of the Admitted Behavioral Health Patient policy. 5. Comfort bath system only. 6. No personal belongings 7. Visitors: None at this time. 8. Activities: Soft cart items and other activities at RN discretion. 9. Bathroom privileges with escort in the ED. 10. Phone: Limited to legal contacts via cordless hospital phone at RN discretion. 11. Due to INVOLUNTARY status, patient is being held at [facility] by the Department of Mental Health (DM) until 2nd certification by [facility] Psychiatrist can be performed (within 24 hours). Staff will provide de-escalation support (CPI) as needed. If patient wishes to leave [facility], staff will contact [facility] Crisis Screener ([phone]) and On-Call Supervising Librarian ([phone]) as soon as possible. In the event of elopement, notify [facility] Police ([phone]). Patient is currently involuntarily at [facility]. [facility] Frontline Senior Commissary Agent will continue seeking placement. Please contact the Nurse Intern Supervising Librarian ([phone]) for any needed changes to Safety Plan. Safety plan has been provided to interdepartmental care team. Patient will be transported by deputy sheriff civil division at time of discharge.
[2022-01-10 14:53] LABS: COVID-19 PCR Negative (Negative)
--- NOTE | 2022-01-10 17:28 | NUR.NOTE ---
Nursing Note: Marti Salgado just called and declined this pt for admission
[2022-01-10 18:28] LABS: Anion Gap 9.1 mmol/L (3-11); BUN 17 mg/dL (7-18); CO2 26.9 mmol/L (21.0-32.0); CREATININE 1.2 mg/dL (0.70-1.30); Calcium 9.3 mg/dL (8.5-10.1); Chloride 94 mmol/L (98-107); Estimated GFR 75.06 (mL/min/1.73m2); Glucose 359 mg/dL (74-106); Potassium 4.5 mmol/L (3.5-5.1); Sodium 130 mmol/L (136-145)
--- NOTE | 2022-01-10 19:40 | MHPN_ITS ---
Date of service: 01/10/22 Time of Service: 18:00 Mental Health Emergency Note Release [facility] release signed:: Yes Reason for Visit Client presented to [facility] ED on 01/09/22 via VSP and embedded MH worker Rupalikimo Max after a MH warrant was executed. Client is seen tonight for 2nd certification by psychiatrist from [facility]. In the last 2 weeks has the pt presented for ES prior to today?: Yes, presented at [facility] ED Client Information Client is: New Non Suicidal Self Injury Current: No History: No Safety Risk/Harm to Self or Others Current Ideation to Harm Self or Others: No Risk: Does risk to harm exist?: yes. Risk: Moderate Risk Duty to warn indicated: No Asssessment/Mental Status Appearance: Disheveled and Poor hygiene Attitude: Cooperative Behavior: Poor impulse control, Gait disturbances and Repetitive movements Speech: Loud and Slurred Affect: Expansive and Cogruent with mood Mood: Expansive and Anxious Thought process: Loose associations and Flight of ideas Hallucinations: yes, (Client appears to be having command hallucinations, as at times he is starting off and will having conversation with somebody that is not in the room. ) Command Delusions: No Attention: Wandering and Inattention Perception: Not impaired Orientation: Fully orientated Memory: Intact Insight: Poor Judgement: Poor Neurovegetative Symptoms Sleep: Decrease Appetitie: Decrease Interests: Decrease Energy: Decrease Libido: Not applicable Substance Use: Do you use nicotine?: No Have you used substances in the last 7 days?: No Additional Issues: Assaultive/Threatening Behavior: No Medical Concerns: Yes Client engaged in active self harm w/weapon: No Threatening to run away: No Child reported abuse/neglect: No Voluntarily presenting for services: No Domestic violence is a concern: No Extreme Psychosis or extreme behavior is present: No Impression Client is laying down in the hospital bed during 2nd certification. Client presents with pressured speech and is incoherent at times during assessment. Client reports to psychiatrist: I moved to the area to try to get jobs. I have applied to multiple universities. When psychiatrist asked client what brought him to the hospital he states: food poisoning I was really weak and the police were worried about me. Client reports that he ran out of money for food on the debit card that his parents supply for him. When asked about medical problems client states: I was at [facility] and they dx with diabetes, I have never been dx before. Client reports that he does not take any medications. When psychiatrist asked client if he ever hears or sees things that others don't there was a long pause and client is staring at the wall and then states: what did you say? Client was unable to answer the question. Client presents with pressured speech, gait disturbance, and disorganized though process. Plan/Disposition Recommended Disposition: Hospitalization (Involuntary hold. [facility]errals faxed to [facility], [facility], , and [facility] ) facilities contacted. Plan: 2nd certification will be signed by psychiatrist from [facility] Dr. Martín Ramírez. Client will remain at [facility] ED on involuntary status pending admission to an inpatient facility. Client will be re-assessed by [facility] daily until placement is secured or clients acuity level decreases and client is able to be safety planned home. Person reported agreement to plan: No Reports/communication Outcome discussed with: ED/Personnel (Verbal passover given to [facility] ED provider Dr. Mart. )
--- NOTE | 2022-01-10 23:03 | NUR.NOTE ---
This technical writer offered to change the patient's wet bed after he poured water all over himself. Patient declined me changing his bed. I reminded him he does not need to lay on a wet bed. I placed dry sheet on his table. I asked patient to let me know if he changes his mind about changing his wet bed. Patient said ok. He did agree to me putting a dry blanket on him. He did allow me to remove some empty paper cups from his room. I will reapproach him when nursing goes in there to see about changing his wet sheet.
--- NOTE | 2022-01-11 00:39 | NUR.NOTE ---
This fiction and nonfiction prose writer reported it to the nurse taking care of this patient his feet look swollen, the left foot more swollen than the right foot.
--- NOTE | 2022-01-11 00:45 | NUR.NOTE ---
This medical technical writer reapproached patient about changing his wet sheets. Patient declined stated no not right now, can you give me some more water, my mouth is feeling dry. RN notified. Patient has been previously pouring water all over himself in bed.
--- NOTE | 2022-01-11 01:12 | NUR.NOTE ---
Patient asked if we have any candy. This engineering writer told patient we don't have any candy here. I asked if he is hungry and he didn't answer me.
--- NOTE | 2022-01-11 02:45 | NUR.NOTE ---
Addendum entered by Jodie Manning 01/11/22 02:47: Patient keeps saying what the f*ck over and over again. Original Note: Patient keeps asking for ice water or soda. I was instructed by the nurse he cannot have any ice water or soda at this time. Patient is aware.
[2022-01-11] MEDS: Acetaminophen 325 MG TAB 650 MG PO (03:15)
--- NOTE | 2022-01-11 04:08 | NUR.NOTE ---
Patient is making repeated requests for a snack such as a sandwich. RN was notified. Patient was instructed breakfast will be in a couple of hours.
[2022-01-11 07:40] VITALS: BP 166/114; PULSE 100; RESP 18; TEMP 37.6; O2SAT 93
[2022-01-11] MEDS: metFORMIN 500 MG TAB 1000 MG PO ×2 (08:38→17:05)
--- NOTE | 2022-01-11 12:31 | MHPN_ITS ---
Date of service: 01/11/22 Time of Service: 10:36 Mental Health Emergency Note Release [facility] release signed:: Yes Reason for Visit Client is on EE status at [facility]. In the last 2 weeks has the pt presented for ES prior to today?: Unknown Client Information Client is: New Well Housed: No,status: Homeless Non Suicidal Self Injury Current: No Safety Risk/Harm to Self or Others Current Ideation to Harm Self or Others: No Risk: Does risk to harm exist?: No Risk: N/A Duty to warn indicated: No Asssessment/Mental Status Appearance: Disheveled Attitude: Cooperative and Guarded Behavior: Repetitive movements Speech: Normal Affect: Cogruent with mood Mood: Stressed, Anxious and Irritable Thought process: Racing and Tangential Hallucinations: No evidence Delusions: yes, Bizarre and Thought broadcasting Attention: Unremarkable Perception: Not impaired Orientation: Fully orientated Memory: Intact Insight: Fair Judgement: Poor Neurovegetative Symptoms Sleep: Decrease Appetitie: No change Interests: No change Energy: No change Libido: Not applicable Substance Use: Do you use nicotine?: No Have you used substances in the last 7 days?: No Additional Issues: Assaultive/Threatening Behavior: No Medical Concerns: Yes Client engaged in active self harm w/weapon: No Threatening to run away: No Child reported abuse/neglect: No Voluntarily presenting for services: No Domestic violence is a concern: No Extreme Psychosis or extreme behavior is present: Yes Impression CP reports he is not currently endorsing SI/HI/NSSI. CP states he feels he has improved since being at [facility] both mental health abraham and diabetes abraham. CP is severely delusional, broadcasts all of his thoughts and makes bizarre statemen ts. CP reports he got food poisoning, COVID makes him not able to be employed, the lawn mowers got him sick, and he feels he is running out of money. CP Is in significant need of short term intensive treatment. Plan/Disposition Recommended Disposition: Hospitalization facilities contacted. Plan: CP will remain at [facility] until a bed is found. This clinician will touch base with [facility] later this afternoon to see if there is a bed available. Facilities contacted if Applicable [facility] Not accepted, Medical reasons [facility] Accepted, Pending review. Information Sent to [facility]: Referral [facility] Not accepted, Only accepting in house referrals, [facility] Not accepted, Acuity Reports/communication Outcome discussed with: ED/Personnel
--- NOTE | 2022-01-11 12:58 | NUR.NOTE ---
Nursing Note: Salbador Perez father [phone]
--- NOTE | 2022-01-11 13:39 | CMSP_ITS ---
- If Service Date Differs Date of service: 01/11/22 Time of Service: 13:39 Care Management Safety Plan Status: Involuntary - Reason for Wait Reason for Wait: Inpatient Admission INVOLUNTARY FOR INPATIENT PSYCHIATRIC STABILIZATION. A decentralized huddle is done with Jessica, nursing supervisor customer services, YESENIA Martinez, and RAFIQ Gomez. NO CHANGES TO SAFETY PLAN. Safety plan has been established to meet the needs of the patient, and consideration of the care team, to adhere to patient goals, identify restrictions based on behavioral status, address nutrition, and determine allowed personal belongings, tools for hygiene and personal care. Determine level of activity including ambulation, level of supervision, visitors, and determine privileges based on behaviors and level of engagement by pt. SAFETY PLAN: 1. Will remain on SI/HI precautions. In Paper Clothes 2. Will remain in room under direct supervision of one-on-one staff at all times provided by CPSO, MAX, MEDICAL DELIVERY TECHNICIAN director river restoration. 3. May have paper cups, plates, finger foods as well as a cardboard spoon to eat meals. 4. Follow [facility] Management of the Admitted Behavioral Health Patient policy. 5. Comfort bath system only. 6. No personal belongings 7. Visitors: None at this time. 8. Activities: Soft cart items and other activities at RN discretion. 9. Bathroom privileges with escort in the ED. 10. Phone: Limited to legal contacts via cordless hospital phone at RN discretion. 11. Due to INVOLUNTARY status, patient is being held at [facility] by the Department of Mental Health ([facility]). A Second Certification by Psychiatrist occurred on 01/10/22 and upheld the EE. Staff will provide de-escalation support (CPI) as needed. If patient wishes to leave [facility], staff will contact [facility] Crisis Screener ([phone]) and On-Call Manager Sharepoint ([phone]) as soon as possible. In the event of elopement, notify [place] Police ([phone]). Patient is currently involuntarily at [facility]. [facility] Frontline Forging Die Finisher will co ntinue seeking placement. Please contact the Corporate Account Executive Manager Sharepoint ([phone]) for any needed changes to Safety Plan. Safety plan has been provided to interdepartmental care team. Patient will be transported [facility] at time of discharge.
--- NOTE | 2022-01-11 14:04 | CMPROGNOTE_ITS ---
- If Service Date Differs Date of service: 01/11/22 Time of Service: 14:04 Care Management Progress Note S/O: Yadiel is lying in bed when CM meets with him today. He readily engages in conversation but answers questions with questions or repeatedly asks for clarification of what is being said. His speech remains pressured and tangential and his affect is anxious. CM explains to Yadiel that his father has called the hospital but staff are unable to give him any updates as he is not on his HIPAA. CM then inquires if Yadiel would like to add his dad to his HIPAA and/or speak with him the next time he calls and Yadiel declines. A: Yadiel is a 46 year old male awaiting an involuntary psychiatric placement. P: Referrals are faxed to [facility], [facility] and [facility] for review. [facility] declines due to patient's medical needs, [facility] also declines due to patient's acuity level, and the referral is still pending review at [facility]. A referral is not sent to [facility] as they are only accepting in-house referrals at this time. Yadiel will remain on involuntary status at [facility] and will be reassessed twice daily by [facility] until a psychiatric bed can be secured for him. CM will continue to follow. - Status Status: Involuntary - Reason for Wait Reason for Wait: Inpatient Admission
--- NOTE | 2022-01-11 17:30 | NUR.NOTE ---
Nursing Note: PT ADAMANTLY REFUSES BLOODWORK OR BLOOD SUGAR CHECK, PROVIDER AWARE.
[2022-01-11] MEDS: Acetaminophen 500 MG TAB 1000 MG PO (21:05)
--- NOTE | 2022-01-11 21:18 | NUR.NOTE ---
Addendum entered by Jodie Manning 01/11/22 21:37: tactical debriefer officer arrived nearby to observe this situation as patient was standing in the hallway being loud demanding his backpack. Patient redirected back into his room by nursing staff. Original Note: At 2100 patient was laying in his left side urinating off the side of the bed. This show card writer offered him to use the bathroom, patient declined. Patient said ouch. This show card writer asked what hurts. Patient stated his back hurts and his pain is an 8. RN was notified. RN, MAX and CPSO assisted with him getting changed into dry scrubs and changed his bed along with mopped the floor. Patient keeps insisting he wants his backpack. He was instructed he cannot have his backpack. Patient asked for more water to take the remaining of his Tylenol the nurse gave him. Patient keeps asking for his backpack and stated [facility] let him used his backpack while he was there. This show card writer explained due to safety guidelines we cannot give him his backpack. RN is aware.
--- NOTE | 2022-01-11 21:35 | NUR.NOTE ---
Patient yelling about Democrats. This securities underwriter asked him to please lower his voice and reminded him other patients are here. Patient apologized. He continues to listen to music on the tablet which appears to be calming to him at this time.
--- NOTE | 2022-01-11 22:14 | NUR.NOTE ---
At 2144 RN assigned to this patient recommended patient maybe sit instead of lay in bed since he was having back pain. Patient complied and is sitting on the side of his bed entertaining himself while listening to music on the tablet.
--- NOTE | 2022-01-12 05:14 | NUR.NOTE ---
Patient keeps requesting to listen to music. According to his nurse, patient may listen to music on the tablet as of 629, patient was informed of this. He is repeatedly asking me where is he going to be transferred to [place] or [facility] in [place]. This tag writer explained referrals have been sent to various places and they are still trying to determine where he will be transferred to. Patient c/o back pain of 10/21, RN is aware.
[2022-01-12] MEDS: Acetaminophen 325 MG TAB 650 MG PO ×2 (05:43→15:00)
[2022-01-12 06:15] VITALS: BP 140/94; PULSE 119; RESP 16; TEMP 37.3; O2SAT 93
[2022-01-12] MEDS: metFORMIN 500 MG TAB 1000 MG PO ×2 (07:45→17:30)
--- NOTE | 2022-01-12 14:25 | CMSP_ITS ---
- If Service Date Differs Date of service: 01/12/22 Time of Service: 14:25 Care Management Safety Plan Status: Involuntary - Reason for Wait Reason for Wait: Inpatient Admission INVOLUNTARY FOR INPATIENT PSYCHIATRIC STABILIZATION. NO CHANGES TO SAFETY PLAN. Safety plan has been established to meet the needs of the patient, and consideration of the care team, to adhere to patient goals, identify restrictions based on behavioral status, address nutrition, and determine allowed personal belongings, tools for hygiene and personal care. Determine level of activity including ambulation, level of supervision, visitors, and determine privileges based on behaviors and level of engagement by pt. SAFETY PLAN: 1. Will remain on SI/HI precautions. In Paper Clothes 2. Will remain in room under direct supervision of one-on-one staff at all times provided by CPSO, INTELLIGENCE INTERN, COMPOSER TEACHING ARTIST finance director. 3. May have paper cups, plates, finger foods as well as a cardboard spoon to eat meals. 4. Follow [facility] Management of the Admitted Behavioral Health Patient policy. 5. Comfort bath system only. 6. No personal belongings 7. Visitors: None at this time. 8. Activities: Soft cart items and other activities at RN discretion. 9. Bathroom privileges with escort in the ED. 10. Phone: Limited to legal contacts via cordless hospital phone at RN discretion. 11. Due to INVOLUNTARY status, patient is being held at [facility] by the Department of Mental Health ([facility]). A Second Certification by Psychiatrist occurred on 01/10/22 and upheld the EE. Staff will provide de-escalation support (CPI) as ne eded. If patient wishes to leave [facility], staff will contact [facility] Crisis Screener ([phone]) and On-Call Derrick Follower ([phone]) as soon as possible. In the event of elopement, notify [place] [employer] ([phone]). Patient is currently involuntarily at [facility]. [facility] Frontline Truck Driver will continue seeking placement. Please contact the Guidance And Control System Engineer Derrick Follower ([phone]) for any needed changes to Safety Plan. Safety plan has been provided to interdepartmental care team. Patient will be transported by [employer] at time of discharge.
--- NOTE | 2022-01-12 14:25 | PDOC.CMSAFED ---
- If Service Date Differs Date of service: 01/12/22 Time of Service: 14:25 Care Management Safety Plan Status: Involuntary - Reason for Wait Reason for Wait: Inpatient Admission INVOLUNTARY FOR INPATIENT PSYCHIATRIC STABILIZATION. NO CHANGES TO SAFETY PLAN. Safety plan has been established to meet the needs of the patient, and consideration of the care team, to adhere to patient goals, identify restrictions based on behavioral status, address nutrition, and determine allowed personal belongings, tools for hygiene and personal care. Determine level of activity including ambulation, level of supervision, visitors, and determine privileges based on behaviors and level of engagement by pt. SAFETY PLAN: 1. Will remain on SI/HI precautions. In Paper Clothes 2. Will remain in room under direct supervision of one-on-one staff at all times provided by CPSO, SEAFOOD AND SERVICE MEAT MANAGER, SENIOR COMPENSATION CONSULTANT slurry tank operator. 3. May have paper cups, plates, finger foods as well as a cardboard spoon to eat meals. 4. Follow [facility] Management of the Admitted Behavioral Health Patient policy. 5. Comfort bath system only. 6. No personal belongings 7. Visitors: None at this time. 8. Activities: Soft cart items and other activities at RN discretion. 9. Bathroom privileges with escort in the ED. 10. Phone: Limited to legal contacts via cordless hospital phone at RN discretion. 11. Due to INVOLUNTARY status, patient is being held at [facility] by the Department of Mental Health ([facility]). A Second Certification by Psychiatrist occurred on 01/10/22 and upheld the EE. Staff will provide de-escalation support (CPI) as needed. If patient wishes to leave [facility], staff will contact [facility] Crisis Screener ([phone]) and On-Call Pooling Operator ([phone]) as soon as possible. In the event of elopement, notify [place] [employer] ([phone]). Patient is currently involuntarily at [facility]. [facility] Frontline Engraver Picture will continue seeking placement. Please contact the Soldering Machine Feeder Pooling Operator ([phone]) for any needed changes to Safety Plan. Safety plan has been provided to interdepartmental care team. Patient will be transported by [employer] at time of discharge.
--- NOTE | 2022-01-12 14:34 | PDOC.ERCMPRO ---
- If Service Date Differs Date of service: 01/12/22 Time of Service: 14:34 Care Management Progress Note S/O: Yadiel remains tangential, demanding, and at times difficult to redirect. He is frequently witnessed talking to himself or engaging in nonsensical speech. Today staff report he was screaming about burritos and wanting the President executed. Yadiel has been eating well since being at [facility] and he has willingly taken his diabetes medication (Metformin). He does occasionally refuse Ativan when offered to him for agitation, per nursing staff. A: Yadiel is a 46 year old male awaiting an involuntary psychiatric placement. P: Referrals are faxed to [facility], [facility] and [facility] for review. [place] declines due to patient's medical needs and [place] also declines due to patient's acuity level. We await determination from [facility]. A referral is not sent to [facility] as they are only accepting in-house referrals at this time. Yadiel will remain on involuntary status at [facility] and will be reassessed twice daily by [facility] until a psychiatric bed can be secured for him. CM will continue to follow. - Status Status: Involuntary - Reason for Wait Reason for Wait: Inpatient Admission
[2022-01-12] MEDS: LORazepam 1 MG TAB (15:01)
--- NOTE | 2022-01-12 19:37 | W.EDPROG ---
Date of service: 01/12/22 Time of Service: 19:37 Medical Decision Making Care was signed out by Dr. Robles with plan to await inpatient psychiatric treatment placement. Patient is here with schizoaffective disorder and acute psychosis. During the shift he has had intermittent outbursts, screaming at the wall, easily redirectable. Patient has been intermittently compliant with his medication. He did take his metformin today. He remains hyperglycemic with no anion gap of doses. I am hopeful that if he continues to except metformin his glucose will improve. I have requested a medicine consult and spoke with Dr. Cantu regarding this request. Patient was given Ativan 1 mg for anxiety. Plan to initiate Risperdal 1 mg twice daily as a trial antipsychotic. Sign Out Sign Out Data: Sign Out Comment: Patient has BMP pending this morning and will need potentially further insulin dosing until blood sugar better controlled. He is on an EE pending second certification. Has been calm and cooperative overnight. Last updated by Romie Robles MD at 01/10/22 07:50 Sign Out Comment: 2nd cert performed. Glucose improved to mid 300's. Last updated by Greg Mart MD at 01/10/22 18:34 Sign Out Comment: Blood sugars better and patient taking his glucophage. Will need to continue to follow and dose with insulin as needed. He is pending placement after 2nd certification yesterday. Last updated by Romie Robles MD at 01/11/22 07:43 Sign Out Comment: EE, awaiting placement; Juni will reconsider if diabetes more controlled Last updated by Wally Dove MD at 01/11/22 17:05 Sign Out Comment: Patient pending psychiatric placement. Patient stable throughout the night. No interventions needed. Last updated by Goyo Harding DO at 01/11/22 23:08 Sign Out Comment: continues to be tangential and talking to self, little sleep, sugars in the 300 range; pending placement. Last updated by Romie Robles MD at 01/12/22 08:21 Discharge Plan Disposition Patient Disposition: STILL A PATIENT Condition: Stable Discharge Details Clinical Impression: Schizoaffective disorder, Uncontrolled diabetes mellitus with hyperglycemia Primary Care Provider: Unknown,Unknown ED Provider: Dominic Sebastian Home Meds and New Rx's Prescriptions: No Action diphenhydramine HCl [Benadryl] 25 mg Capsule 25 mg PO HS PRN PRN
--- NOTE | 2022-01-12 20:24 | NUR.NOTE ---
Nursing Note: Patient laying in bed with wet scrubs and sheets. This telegraphic typewriter operator told the patient there were dry scrubs and he did not need to lay in a wet bed. The patient declined stating I just want to rest right now, my back hurts. This telegraphic typewriter operator asked the patient his level of pain, patient shut his eyes and did not respond.
--- NOTE | 2022-01-12 21:47 | NUR.NOTE ---
Nursing Note: Patient poured water over his head. Patient continuously asking to use the bathroom. This curriculum writer entered bathroom to find patient drinking out of the faucet. Patient complaining back pain 8 out of 10. This curriculum writer asked the patient if he would like something for the pain and the patient declined.
--- NOTE | 2022-01-13 00:34 | PDOC.MHPN2 ---
Date of service: 01/12/22 Time of Service: 00:34 Mental Health Emergency Note Release [facility] release signed:: No Reason for Visit Client is on EE status at [facility]. In the last 2 weeks has the pt presented for ES prior to today?: Unknown Client Information Client is: New Well Housed: No,status: Homeless Unstable housing Non Suicidal Self Injury Current: No History: No Safety Risk/Harm to Self or Others Current Ideation to Harm Self or Others: Yes to self. (Client is experiencing delusiona thinking) Intent: no, has no intent. Plan: no.does not have a plan. History of suicide attempt: No history of suicide attempt reported and to others. (Client is experiencing delusiona thinking) Intent: No Plan: no, does not have a plan. Risk: Does risk to harm exist?: yes. Access to means: No. Risk: High Risk Asssessment/Mental Status Appearance: Disheveled Attitude: Cooperative and Friendly Behavior: Unremarkable Speech: Normal Affect: Flat Mood: Anxious Thought process: Unremarkable Hallucinations: No Delusions: No Attention: Unremarkable Perception: Not impaired Orientation: Fully orientated Memory: Intact Insight: Fair Judgement: Fair Neurovegetative Symptoms Sleep: No change Appetitie: No change Interests: No change Energy: No change Libido: Not applicable Substance Use: Do you use nicotine?: No Have you used substances in the last 7 days?: No Additional Issues: Assaultive/Threatening Behavior: No Medical Concerns: Yes Client engaged in active self harm w/weapon: No Threatening to run away: No Child reported abuse/neglect: No Voluntarily presenting for services: No Domestic violence is a concern: No Extreme Psychosis or extreme behavior is present: No Impression Client is not currently endorsing SI/HI/NSSI. He reported that he had heard that he may be going to [facility] and that he may be moved to another section of the hospital and wonders when that might be. He is described as having a roller coaster of moods throughout the day but nothing too severe. During his later collateral call he is reported to have blood sugars as high as 584 today but did take an Ativan which helped to relax him and he was observed cackling in his room in a good way. He showed manners please and thank you however, was also still observed speaking about Nazi's and politics which he can become ejaculated on such topics. He also was described as taking his Metformin whish was a positive sign although would only take it with a coke. Client still remains in need of short term intensive treatment. Plan/Disposition Recommended Disposition: Hospitalization facilities contacted. Plan: Because the client is still not accepting of medications and his blood sugars really high, his moods are deregulated and he shows the inability to maintain and regulate his moods he will remain on EE status. He will be reassessed daily to assess if he can maintain in a lesser restrictive treatment facility, [facility]. Person reported agreement to plan: No Facilities contacted if Applicable [facility] Not accepted, No bed available [facility] Not accepted, No bed available [facility] Not accepted, Only accepting in house referrals, [facility] Not accepted, No bed available [facility] Not accepted, Medical reasons and Acuity Reports/communication Outcome discussed with: ED/Personnel
--- NOTE | 2022-01-13 05:41 | NUR.NOTE ---
Addendum entered by Jodie Manning 01/13/22 05:50: Patient had wet the bed with urine incontinence, therefore, both he and his bed needed to be changed. Original Note: Patient was given a clean sheet, pillow case and more paper scrubs. Patient was instructed to change his paper scrubs and bed himself. He was told if he removes his blue paper scrubs and throws them in the trash and his dirty linen in the linen basket, the nurse would give him a drink. Patient didn't fully comply to this request. He responded by saying Where am I going to be transferred? Aren't I suppose to [facility]? This typewriter assembler responded they are still trying to decide where you are going to be transferred.
--- NOTE | 2022-01-13 06:11 | NUR.NOTE ---
Patient removed wet chucks pad from the linen basket and put it in the trash as requested. Water was given to him in a plastic cup. Patient declined to drink it stating I don't drink anything in plastic, it is bad for you. He asked if he could go grab a paper cup and get some ice water at the water cooler. This typewriter ribbon winder explained to him that the nurse gave him a cup of water and that he cannot go help himself to the water cooler.
--- NOTE | 2022-01-13 06:57 | W.EDPROG ---
Date of service: 01/13/22 Time of Service: 06:57 Medical Decision Making Patient remains on a hold while waiting placement at psychiatric facility. He has been extremely agitated overnight, loud and swearing despite attempts at verbal redirection and encouragement to calm down. He has been sitting in his room having long monologues about various issues mostly politics. This morning insisting he needs to leave and that we need to give him his belongings. Has refused oral medications. I tried having discussion with him but cannot get him to understand that he is required to remain here until transfer to psychiatric facility and that he cannot have his belongings. I ordered the patient 10 mg of Zyprexa IM. He did voluntarily accept the injection by nursing. Exam Narrative Exam Narrative: Const: WDWN male in NAD. HEENT: NC/AT. Normal facial exam. Eyes: Normal conjunctiva and sclera. Neck: Supple. Trachea midline. Lungs: Normal respiratory effort. Neuro: A+O x 3. Cranial nerves II - XII grossly intact. No gross motor or sensory deficit. Ext: No C/C/E. Psych: Very agitated, loud, becoming less redirectable than before. Long monologue conversations throughout the night. Continues with disorganized thoughts and tangential speech. Sign Out Sign Out Data: Sign Out Comment: Patient has BMP pending this morning and will need potentially further insulin dosing until blood sugar better controlled. He is on an EE pending second certification. Has been calm and cooperative overnight. Last updated by Romie Robles MD at 01/10/22 07:50 Sign Out Comment: 2nd cert performed. Glucose improved to mid 300's. Last updated by Greg Mart MD at 01/10/22 18:34 Sign Out Comment: Blood sugars better and patient taking his glucophage. Will need to continue to follow and dose with insulin as needed. He is pending placement after 2nd certification yesterday. Last updated by Romie Robles MD at 01/11/22 07:43 Sign Out Comment: EE, awaiting placement; Juni will reconsider if diabetes more controlled Last updated by Wally Dove MD at 01/11/22 17:05 Sign Out Comment: Patient pending psychiatric placement. Patient stable throughout the night. No interventions needed. Last updated by Goyo Harding DO at 01/11/22 23:08 Sign Out Comment: continues to be tangential and talking to self, little sleep, sugars in the 300 range; pending placement. Last updated by Romie Robles MD at 01/12/22 08:21 Sign Out Comment: Patient has continued to have intermittent aggressive outbursts that are not directed at any individuals but has been heard screaming killed their kids. He did agree to take metformin earlier today. I have ordered Risperdal in hopes that he would agree to take this as an antipsychotic. Patient continues to await inpatient psychiatric treatment placement Last updated by Dominic Sebastian MD at 01/12/22 19:52 Discharge Plan Disposition Patient Disposition: STILL A PATIENT Condition: Stable Discharge Details Clinical Impression: Schizoaffective disorder, Uncontrolled diabetes mellitus with hyperglycemia Primary Care Provider: Unknown,Unknown ED Provider: Romie Robles Home Meds and New Rx's Prescriptions: No Action diphenhydramine HCl [Benadryl] 25 mg Capsule 25 mg PO HS PRN PRN
[2022-01-13] MEDS: OLANZapine 10 MG VIAL (06:58)
[2022-01-13] MEDS: Water,Injection,Sterile 10 ML VIAL (06:58)
--- NOTE | 2022-01-13 07:19 | NUR.NOTE ---
Nursing Note:Pt ramping up, screaming and swearing at staff. Security called in and patient continued to yell and swear. Staff were unable to verbally de-escalate patient. Dr Robles ordered IM olanzapine. Shot administered in the right glut.
[2022-01-13] MEDS: metFORMIN 500 MG TAB 1000 MG PO ×2 (07:29→17:33)
[2022-01-13] MEDS: Acetaminophen 325 MG TAB 650 MG PO (08:39)
--- NOTE | 2022-01-13 10:32 | MHPN_ITS ---
Date of service: 01/13/22 Time of Service: 10:15 Mental Health Emergency Note Release [facility] release signed:: No Reason for Visit Client is being held on involuntary status awaiting placement at [facility] ED on MH warrant. In the last 2 weeks has the pt presented for ES prior to today?: Unknown Impression This freelance writer attempted to screen client. Per ED staff reports, client was sleeping. This freelance writer requested to speak to client's attending MD or nurse in order to gain collateral. This freelance writer spoke with Dr. Dominic Sebastian. Dr. Itzel Sebastian reports client was administered [address] Itzel Sebastian reports client voluntarily accepted injection by nursing. Dr. Itzel Sebastian reports client remains psychotic and presenting with internal stimuli. This freelance writer informed Dr. Itzel Sebastian placement for client is attempting to be secured. [facility] financially declined pt. due to lack of health insurance as well as medically declined pt. due to diagnosis of diabetes. ES member Rachel Long spoke with Frederick Cobos from [facility], who is working to assist with placement for pt., [facility] and [facility] are still reviewing referrals. This freelance writer will attempt to reassess client later in the day once he has awoken. Plan/Disposition Recommended Disposition: Hospitalization (IP Tx.) facilities contacted. Plan: Client is to await in [facility] ED until placement is secured. [facility] and [facility] are still reviewing referrals. ES will attempt to reassess client later today. Reports/communication Outcome discussed with: ED/Personnel (Dr. Dominic Sebastian)
--- NOTE | 2022-01-13 10:32 | PDOC.MHPN2 ---
Date of service: 01/13/22 Time of Service: 10:15 Mental Health Emergency Note Release [facility] release signed:: No Reason for Visit Client is being held on involuntary status awaiting placement at [facility] ED on MH warrant. In the last 2 weeks has the pt presented for ES prior to today?: Unknown Impression This display card writer attempted to screen client. Per ED staff reports, client was sleeping. This display card writer requested to speak to client's attending MD or nurse in order to gain collateral. This display card writer spoke with Dr. Dominic Sebastian. Dr. Itzel Sebastian reports client was administered [address] Itzel Sebastian reports client voluntarily accepted injection by nursing. Dr. Itzel Sebastian reports client remains psychotic and presenting with internal stimuli. This display card writer informed Dr. Itzel Sebastian placement for client is attempting to be secured. [facility] financially declined pt. due to lack of health insurance as well as medically declined pt. due to diagnosis of diabetes. ES member Rachel Long spoke with Frederick Cobos from [facility], who is working to assist with placement for pt., [facility] and [facility] are still reviewing referrals. This display card writer will attempt to reassess client later in the day once he has awoken. Plan/Disposition Recommended Disposition: Hospitalization (IP Tx.) facilities contacted. Plan: Client is to await in [facility] ED until placement is secured. [facility] and [facility] are still reviewing referrals. ES will attempt to reassess client later today. Reports/communication Outcome discussed with: ED/Personnel (Dr. Dominic Sebastian)
--- NOTE | 2022-01-13 13:18 | W.EDPROG ---
Date of service: 01/13/22 Time of Service: 13:18 Medical Decision Making Patient remains psychotic awaiting inpatient psychiatric treatment. He did receive Zyprexa earlier this morning as prescribed by Dr. Robles. Patient has agreed to take his metformin today. We will check BMP. -- BMP shows persistent hyperglycemia with no anion gap. Medicine consult is pending. Sign Out Sign Out Data: Sign Out Comment: Patient has BMP pending this morning and will need potentially further insulin dosing until blood sugar better controlled. He is on an EE pending second certification. Has been calm and cooperative overnight. Last updated by Romie Robles MD at 01/10/22 07:50 Sign Out Comment: 2nd cert performed. Glucose improved to mid 300's. Last updated by Greg Mart MD at 01/10/22 18:34 Sign Out Comment: Blood sugars better and patient taking his glucophage. Will need to continue to follow and dose with insulin as needed. He is pending placement after 2nd certification yesterday. Last updated by Romie Robles MD at 01/11/22 07:43 Sign Out Comment: EE, awaiting placement; Juni will reconsider if diabetes more controlled Last updated by Wally Dove MD at 01/11/22 17:05 Sign Out Comment: Patient pending psychiatric placement. Patient stable throughout the night. No interventions needed. Last updated by Goyo Harding DO at 01/11/22 23:08 Sign Out Comment: continues to be tangential and talking to self, little sleep, sugars in the 300 range; pending placement. Last updated by Romie Robles MD at 01/12/22 08:21 Sign Out Comment: Patient has continued to have intermittent aggressive outbursts that are not directed at any individuals but has been heard screaming killed their kids. He did agree to take metformin earlier today. I have ordered Risperdal in hopes that he would agree to take this as an antipsychotic. Patient continues to await inpatient psychiatric treatment placement Last updated by Dominic Sebastian MD at 01/12/22 19:52 Sign Out Comment: Continues to be agitated more so this morning than previous. Refusing oral medications but did take IM Zyprexa. Continues to wait for psychiatric bed availability. Last updated by Romie Robles MD at 09/30/22 07:21 Discharge Plan Disposition Patient Disposition: STILL A PATIENT Condition: Stable Discharge Details Clinical Impression: Schizoaffective disorder, Uncontrolled diabetes mellitus with hyperglycemia Primary Care Provider: Unknown,Unknown ED Provider: Dominic Sebastian [place] Meds and New Rx's Prescriptions: No Action diphenhydramine HCl [Benadryl] 25 mg Capsule 25 mg PO HS PRN PRN
--- NOTE | 2022-01-13 14:10 | MHPN_ITS ---
Date of service: 01/13/22 Time of Service: 01:44 Mental Health Emergency Note Release [facility] release signed:: No Reason for Visit Client is being held on involuntary status on MH warrant at [facility] ED. In the last 2 weeks has the pt presented for ES prior to today?: Unknown Non Suicidal Self Injury Current: No History: yes, unknown to this screener Safety Risk/Harm to Self or Others Current Ideation to Harm Self or Others: No Asssessment/Mental Status Appearance: Disheveled Attitude: Cooperative and Friendly Behavior: Unremarkable Speech: Normal Affect: Flat and Cogruent with mood Mood: Stressed, Anxious and Irritable Thought process: Goal directed (Client kept requesting to leave the ED) and Tangential (client would interput this display card writer and ask questions not relevent to the context of the converstaion) Hallucinations: No evidence Delusions: yes, Bizarre and Thought broadcasting Attention: Wandering and Poor concentration Perception: Not impaired Orientation: Disoriented in Time (Client asked if today was Sunday or Sunday) Memory: Intact Insight: Fair Judgement: Fair Neurovegetative Symptoms Sleep: Increase (Client reports catching up on sleep since being in the ED) Appetitie: Increase (Client reports eating Breakfast and Lunch today) Interests: No change Energy: No change Libido: Not applicable Impression Client is being held on involuntary status on MH warrant at [facility]. Client denies actively endorsing SI/HI/NSSI. Client denies intent/plan. Client presents with fair judgment/insight. Client was not oriented to day; eg. client asked this display card writer for clarification if today was Sunday or Sunday. Client reports his mood as alright. Client reports increase to his sleeping habits; eg. client reports he has gotten alot of sleep today. Client reports increase to his eating habits; eg. client states he has eaten breakfast and lunch today. Client reports he has been med compliant; eg. he reports taking his prescribed medications today. Client reports he has been experiencing back pain. This display card writer asked if client informed ED staff of this complaint; client reports yes. Client presented with experiencing internal stimuli. It should be noted, at points in conversation with this display card writer, client was having difficulty concentrating. Client was observed looking at the computer screen then turning his head and staring at the wall. Client would be in mid thought and was not able to complete his sentences. When client stopped talking, he presented staring at the wall with a blank stare. When this display card writer attempted to redirect client, client would respond to display card writer with irreverent context to the conversation; eg. client would make comments in regards to government and politics. Client appeared with tangential thought process. Client asked this display card writer multiple times throughout the screening to leave the ED. This display card writer informed client he was being held on involuntary status on MH warrant. After speaking with client, this display card writer discussed findings of assessment with Dr. Dominic Sebastian. Dr. Dominic Sebastian was also provided update regarding status of placement for client. Client is to remain in ED over the weekend. Dr. Dominic Sebastian reports client was agreeable and took his metformin today. Plan/Disposition Recommended Disposition: Hospitalization (IP Tx.) facilities contacted. Plan: Client is to wait in [facility] ED on involuntary status until placement is secured for IP tx. Client is to be assessed daily. Facilities contacted if Applicable [facility] Not accepted, Medical reasons (medically declined due to servierty of client's diabetes ) [facility] Not accepted, (only accepting in home referrals until 01/16) No bed available [facility] Not accepted, (only accepting [facility] home referrals) [facility], [facility] (client was declined due to being to acute) Reports/communication Outcome discussed with: ED/Personnel (Dr. Dominic Sebastian)
[2022-01-13 14:14] LABS: Anion Gap 9.2 mmol/L (3-11); BUN 25 mg/dL (7-18); CO2 26.8 mmol/L (21.0-32.0); Calcium 10.1 mg/dL (8.5-10.1); Chloride 93 mmol/L (98-107); Estimated GFR 93.42 (mL/min/1.73m2); Glucose 407 mg/dL (74-106); Sodium 129 mmol/L (136-145)
--- NOTE | 2022-01-13 14:14 | CMSP_ITS ---
- If Service Date Differs Date of service: 01/13/22 Time of Service: 14:14 Care Management Safety Plan Status: Involuntary - Reason for Wait Reason for Wait: Inpatient Admission NO CHANGES TO SAFETY PLAN. Safety plan has been established to meet the needs of the patient, and consideration of the care team, to adhere to patient goals, identify restrictions based on behavioral status, address nutrition, and determine allowed personal belongings, tools for hygiene and personal care. Determine level of activity including ambulation, level of supervision, visitors, and determine privileges based on behaviors and level of engagement by pt. SAFETY PLAN: 1. Will remain on SI/HI precautions. In Paper Clothes 2. Will remain in room under direct supervision of one-on-one staff at all times provided by CPSO, DENTAL PRACTITIONER, BACK END WEB DEVELOPER aoc director intelligence officer. 3. May have paper cups, plates, finger foods as well as a cardboard spoon to eat meals. 4. Follow [facility] Management of the Admitted Behavioral Health Patient policy. 5. Comfort bath system only. 6. No personal belongings 7. Visitors: None at this time. 8. Activities: Soft cart items and other activities at RN discretion. 9. Bathroom privileges with escort in the ED. 10. Phone: Limited to legal contacts via cordless hospital phone at RN discretion. 11. Due to INVOLUNTARY status, patient is being held at [facility] by the Department of Mental Health ([facility]). A Second Certification by Psychiatrist occurred on 01/10/22 and upheld the EE. Staff will provide de-escalation support (CPI) as needed. If patient wishes to leave [facility], staff will contact [facility] Crisis Screener ([phone]) and On-Call Anvil Worker ([phone]) as soon as possible. In the event of elopement, notify [place] [employer] ([phone]). Patient is currently involuntarily at [facility]. [facility] Frontline Bread Stacker will continue seeking placement. Please contact the Supervisor Metal Placing Anvil Worker ([phone]) for any needed changes to Safety Plan. Safety plan has been provided to interdepartmental care team. Patient will be transported by [facility] at time of discharge.
[2022-01-13 15:13] VITALS: BP 152/90; PULSE 115; RESP 16; TEMP 36.9; O2SAT 94
--- NOTE | 2022-01-13 16:04 | ED.PROG_ITS ---
Date of service: 01/13/22 Time of Service: 15:00 Medical Decision Making 1500 -- Please see previous provider's notes for initial presentation, exam, plan and course. Case endorsed to monitor while awaiting placement. Medicine consult reportedly done yesterday for management of his diabetes. Pt has reportedly refused taking metformin at times. BMP today notes a glucose of 407, sodium of 129 and normal bicarb and anion gap. 1600 -- Pt noted to be screaming at the wall which he has reportedly done frequently. A dose of zyprexa ordered which pt refused. Scheduled risperdal ordered to start this evening. 1730 -- Discussed with nursing supervisor reclamation to see if possible to transfer to the floor. There are currently no beds available for transfer upstairs due to another mental health patient requiring significant resources. 2100 -- Pt resting comfortably. 2300 -- Case endorsed to Dr. Dove to continue to monitor overnight while awaiting placement. Medical Records Medical records reviewed: Yes I reviewed the patient's medical records. Lab Data Lab results reviewed: Yes I reviewed the patient's lab results. Sign Out Sign Out Data: Sign Out Comment: Patient has BMP pending this morning and will need potentially further insulin dosing until blood sugar better controlled. He is on an EE pending second certification. Has been calm and cooperative overnight. Last updated by Romie Robles MD at 01/10/22 07:50 Sign Out Comment: EE. Continues to refuse meds and have outbursts at times but able to be redirected. Continue to monitor overnight while awaiting placement. Last updated by Ila Hernandez DO at 01/13/22 23:03 Sign Out Comment: EE. Awaiting placement. Poorly controlled DM (intermittently not taking his metformin), Given subq insulin this morning with breakfast Last updated by Wally Dove MD at 01/14/22 07:37 Sign Out Comment: ee for decompensated schizophrenia, on sliding scale insulin as he has repeatedly refused metformin Last updated by Hi Cardoza MD at 01/14/22 17:54 Sign Out Comment: No events overnight. Awaiting placement. Last updated by Ila Hernandez DO at 01/15/22 07:02 Sign Out Comment: no events during the day Last updated by Hi Cardoza MD at 01/15/22 18:36 Sign Out Comment: No events overnight. Awaiting placement. Last updated by Ila Hernandez DO at 01/16/22 01:15 Sign Out Comment: Patient signed out to Dr. Dove at time of shift change awaiting inpatient placement. Last updated by Cassandra Sebastian MD at 01/16/22 15:42 Sign Out Comment: EE. Awaiting placement. Mental health to reassess in AM. If other psych patient upstairs gets placed beforehand, consider [facility] admission Last updated by Wally Dove MD at 01/16/22 23:04 Sign Out Comment: Continues on EE and awaiting placement. Still rambling overnight and mildly agitated but overall no issues. Last updated by Romie Robles MD at 01/17/22 08:00 Sign Out Comment: no issues during the day Last updated by Hi Cardoza MD at 01/17/22 18:46 Sign Out Comment: 2nd cert performed. Glucose improved to mid 300's. Last updated by Greg Mart MD at 01/10/22 18:34 Sign Out Comment: No issues overnight. Remains on EE and still continuously talking to self in the room, periodically becoming somewhat agitated. Overall redirectable and cooperative. Last updated by Romie Robles MD at 01/18/22 07:32 Sign Out Comment: EE. Awaiting placement. Last updated by Dominic Sebastian MD at 01/18/22 16:00 Sign Out Comment: EE. Awaiting placement. Last updated by Ila Hernandez DO at 01/18/22 23:30 Sign Out Comment: Awaiting inpatient psychiatric treatment placement. EE. Last updated by Dominic Sebastian MD at 01/19/22 08:04 Sign Out Comment: still pending placement, no issues during the day Last updated by Hi Cardoza MD at 01/19/22 17:04 Sign Out Comment: Patient stable after my shift. Pending placement. Last updated by Goyo Harding DO at 01/20/22 00:30 Sign Out Comment: No issues overnight, remains stable and unchanged. Last updated by Romie Robles MD at 01/20/22 07:26 Sign Out Comment: no issues during the day Last updated by Hi Cardoza MD at 01/20/22 17:11 Sign Out Comment: code farfan this evening; calmed after we were going to give him meds; awaiting placement Last updated by Wally Dove MD at 01/20/22 23:15 Sign Out Comment: No events overnight. Awaiting placement. Last updated by Ila Hernandez DO at 01/21/22 03:43 Sign Out Comment: Blood sugars better and patient taking his glucophage. Will need to continue to follow and dose with insulin as needed. He is pending placement after 2nd certification yesterday. Last updated by Romie Robles MD at 01/11/22 07:43 Sign Out Comment: Patient awaiting psychiatric treatment placement. Patient intermittently screaming obscenities and specifically stating kill the children repetitively. Patient did have a code valadez earlier this afternoon when he initially refused to go back in his room demanding that we provide his bag. De-escalation was successful and patient has since been cooperative and calm. Last updated by Dominic Sebastian MD at 01/21/22 19:49 Sign Out Comment: No events overnight. Awaiting placement. Last updated by Ila Hernandez DO at 01/22/22 06:29 Sign Out Comment: Awaiting placement. Plan for repeat CBC and chemistry when patient agreeable. Last updated by Dominic Sebastian MD at 01/22/22 19:42 Sign Out Comment: Pt refused lab draw, will reattempt this morning. No other events overnight. Awaiting placement. Last updated by Ila Hernandez DO at 01/23/22 07:03 Sign Out Comment: still pending placement for decompensated schizophrenia Last updated by Hi Cardoza MD at 01/23/22 07:42 Sign Out Comment: EE, awaiting placement; Juni will reconsider if diabetes more controlled Last updated by Wally Dove MD at 01/11/22 17:05 Sign Out Comment: Patient pending psychiatric placement. Patient stable throughout the night. No interventions needed. Last updated by Goyo Harding DO at 01/11/22 23:08 Sign Out Comment: continues to be tangential and talking to self, little sleep, sugars in the 300 range; pending placement. Last updated by Romie Robles MD at 01/12/22 08:21 Sign Out Comment: Patient has continued to have intermittent aggressive outbursts that are not directed at any individuals but has been heard screaming killed their kids. He did agree to take metformin earlier today. I have ordered Risperdal in hopes that he would agree to take this as an antipsychotic. Patient continues to await inpatient psychiatric treatment placement Last updated by Dominic Sebastian MD at 01/12/22 19:52 Sign Out Comment: Continues to be agitated more so this morning than previous. Refusing oral medications but did take IM Zyprexa. Continues to wait for psychiatric bed availability. Last updated by Romie Robles MD at 01/13/22 07:21 Sign Out Comment: Follow-up on medicine consult. Patient awaiting psychiatric inpatient placement. Last updated by Dominic Sebastian MD at 01/13/22 15:41 Discharge Plan Disposition Patient Disposition: STILL A PATIENT Condition: Serious Discharge Details Clinical Impression: Schizoaffective disorder, Diabetes mellitus, Anemia Primary Care Provider: Unknown,Unknown ED Provider: Hi Cardoza [place] Meds and New Rx's Prescriptions: No Action diphenhydramine HCl [Benadryl] 25 mg Capsule 25 mg PO HS PRN PRN
[2022-01-14] MEDS: Insulin REGULAR-Human 100 UNITS/ML UNIT 6 UNITS SC (07:58)
[2022-01-14] MEDS: metFORMIN 500 MG TAB 1000 MG PO ×2 (09:12→17:17)
--- NOTE | 2022-01-14 10:40 | MHPN_ITS ---
Date of service: 01/14/22 Time of Service: 10:05 Mental Health Emergency Note Release [facility] release signed:: No Reason for Visit Client presented to [facility] ED on 01/09/22 via [facility] and embedded worker Rupali after a MH warrant was executed. Client is seen today for daily QMHP assessment. In the last 2 weeks has the pt presented for ES prior to today?: Yes, presented at (Client had presented at [facility] 2x within the past 2 weeks as well as [facility]. ) [facility] ED and ED at another facility Client Information Client is: New Non Suicidal Self Injury Current: No History: No Safety Risk/Harm to Self or Others Current Ideation to Harm Self or Others: No Risk: Does risk to harm exist?: No Asssessment/Mental Status Appearance: Disheveled and Poor hygiene Attitude: Cooperative Behavior: Unremarkable Speech: Soft and Incoherent Affect: Cogruent with mood Mood: Stressed, Anxious and Irritable Thought process: Loose associations and Flight of ideas Hallucinations: No Delusions: No Attention: Wandering and Poor concentration Perception: Not impaired Orientation: Fully orientated Memory: Intact Insight: Poor Judgement: Poor Neurovegetative Symptoms Sleep: No change Appetitie: No change Interests: No change Energy: No change Libido: Not applicable Substance Use: Do you use nicotine?: No Have you used substances in the last 7 days?: No Additional Issues: Assaultive/Threatening Behavior: No Medical Concerns: Yes Client engaged in active self harm w/weapon: No Threatening to run away: No Child reported abuse/neglect: No Voluntarily presenting for services: No Domestic violence is a concern: No Extreme Psychosis or extreme behavior is present: No Impression Client is laying down in hospital bed dressed in proper paper hospital attire when this telegraphic typewriter operator chief and ESC Brown arrive via zoom. When this telegraphic typewriter operator chief asks client how he is doing today, he appears to go off on a tangent about him getting a bad IV that made his arms swell and then switches to talking about his stay at [facility]. Client denies SI/HI as well as intent and plan at this time. Client reports that his sleep has been ok as well as his appetite. Client appears to be presenting wit disorganized though process and pressured speech. At times this telegraphic typewriter operator chief observes client stuttering. Client stated to this telegraphic typewriter operator chief that he wanted his belongings and this telegraphic typewriter operator chief attempted to explain to client that he was on an involuntary MH hold and hospital policy is that he is unable to have his belongings, however when he got transported to a different hospital his belongings would be transported with him. Case handover given to ED provider Dr. Cardoza. Plan/Disposition Recommended Disposition: Hospitalization ([place] [facility], and [facility]. ) No. Plan: Client will remain at [facility] ED on involuntary status pending admission to an inpatient facility. Client will be re-assessed by [facility] ES daily until placement is secured or clients acuity level decreases and he is able to be safety planned home. Person reported agreement to plan: No Reports/communication Outcome discussed with: ED/Personnel (Verbal passover given to ED provider Dr. Cardoza)
--- NOTE | 2022-01-14 11:32 | ED.PROG_ITS ---
Date of service: 01/14/22 Time of Service: 11:32 Medical Decision Making pt agitated this morning, tried walking out of the department but was verbally redirected, now calm in his room having conversations with himself, still pending placement. Has refused metformin multiple times, sliding scale insulin ordered Sign Out Sign Out Data: Sign Out Comment: Patient has BMP pending this morning and will need potentially further insulin dosing until blood sugar better controlled. He is on an EE pending second certification. Has been calm and cooperative overnight. Last updated by Romie Robles MD at 01/10/22 07:50 Sign Out Comment: EE. Continues to refuse meds and have outbursts at times but able to be redirected. Continue to monitor overnight while awaiting placement. Last updated by Ila Hernandez DO at 01/13/22 23:03 Sign Out Comment: EE. Awaiting placement. Poorly controlled DM (intermittently not taking his metformin), Given subq insulin this morning with breakfast Last updated by Wally Dove MD at 01/14/22 07:37 Sign Out Comment: 2nd cert performed. Glucose improved to mid 300's. Last updated by Greg Mart MD at 01/10/22 18:34 Sign Out Comment: Blood sugars better and patient taking his glucophage. Will need to continue to follow and dose with insulin as needed. He is pending placement after 2nd certification yesterday. Last updated by Romie Robles MD at 01/11/22 07:43 Sign Out Comment: EE, awaiting placement; Juni will reconsider if diabetes more controlled Last updated by Wally Dove MD at 01/11/22 17:05 Sign Out Comment: Patient pending psychiatric placement. Patient stable throughout the night. No interventions needed. Last updated by Goyo Harding DO at 01/11/22 23:08 Sign Out Comment: continues to be tangential and talking to self, little sleep, sugars in the 300 range; pending placement. Last updated by Romie Robles MD at 01/12/22 08:21 Sign Out Comment: Patient has continued to have intermittent aggressive outbursts that are not directed at any individuals but has been heard screaming killed their kids. He did agree to take metformin earlier today. I have ordered Risperdal in hopes that he would agree to take this as an antipsychotic. Patient continues to await inpatient psychiatric treatment placement Last updated by Dominic Sebastian MD at 01/12/22 19:52 Sign Out Comment: Continues to be agitated more so this morning than previous. Refusing oral medications but did take IM Zyprexa. Continues to wait for psychiatric bed availability. Last updated by Romie Robles MD at 01/13/22 07:21 Sign Out Comment: Follow-up on medicine consult. Patient awaiting psychiatric inpatient placement. Last updated by Dominic Sebastian MD at 01/13/22 15:41 Discharge Plan Disposition Patient Disposition: STILL A PATIENT Condition: Stable Discharge Details Clinical Impression: Schizoaffective disorder, Uncontrolled diabetes mellitus with hyperglycemia Primary Care Provider: Unknown,Unknown ED Provider: Hi Cardoza [place] Meds and New Rx's Prescriptions: No Action diphenhydramine HCl [Benadryl] 25 mg Capsule 25 mg PO HS PRN PRN
[2022-01-14] MEDS: Insulin REGULAR-Human 100 UNITS/ML UNIT SC (11:34)
--- NOTE | 2022-01-14 14:30 | NUR.NOTE ---
vijay's father called vijay wanted me to tell his father he was feeling better and hoping to be transferred to another hospital on sunday father thanked me for the information Nursing Note:
--- NOTE | 2022-01-14 15:11 | NUR.NOTE ---
Patient is currently in the restroom yelling. CPSO outside the door.
--- NOTE | 2022-01-14 16:49 | PDOC.CMSAFED ---
- If Service Date Differs Date of service: 01/14/22 Time of Service: 16:49 Care Management Safety Plan Status: Involuntary - Reason for Wait Reason for Wait: Inpatient Admission No changes to safety plan. Safety plan has been established to meet the needs of the patient, and consideration of the care team, to adhere to patient goals, identify restrictions based on behavioral status, address nutrition, and determine allowed personal belongings, tools for hygiene and personal care. Determine level of activity including ambulation, level of supervision, visitors, and determine privileges based on behaviors and level of engagement by pt. SAFETY PLAN: 1. Will remain on SI/HI precautions. In Paper Clothes 2. Will remain in room under direct supervision of one-on-one staff at all times provided by CPSO, TREE THINNER, KNOWLEDGE MANAGER informatica developer. 3. May have paper cups, plates, finger foods as well as a cardboard spoon to eat meals. 4. Follow [facility] Management of the Admitted Behavioral Health Patient policy. 5. Comfort bath system only. 6. No personal belongings 7. Visitors: None at this time. 8. Activities: Soft cart items and other activities at RN discretion. 9. Bathroom privileges with escort in the ED. 10. Phone: Limited to legal contacts via cordless hospital phone at RN discretion. 11. Due to INVOLUNTARY status, patient is being held at [facility] by the Department of Mental Health ([facility]). A Second Certification by Psychiatrist occurred on 01/10/22 and upheld the EE. Staff will provide de-escalation support (CPI) as needed. If patient wishes to leave [facility], staff will contact [facility] Crisis Screener ([phone]) and On-Call Child And Family Counselor ([phone]) as soon as possible. In the event of elopement, notify [place] [employer] Police ([phone]). Patient is currently involuntarily at [facility]. [facility] Frontline Special Population Paraprofessional will continue seeking placement. Please contact the Cleaner And Presser Child And Family Counselor ([phone]) for any needed changes to Safety Plan. Safety plan has been provided to interdepartmental care team. Patient will be transported by [email or web address] at time of discharge.
--- NOTE | 2022-01-14 19:10 | NUR.NOTE ---
Patient requested some liquid soap. A packet of cleansing cloths was provided. He began to slightly escalate, talking about Republicans and using loud and coarse language. He was told to keep his voice down and watch his language. He apologized. He is currently cleaning his stomach with the cleansing cloth.
[2022-01-14] MEDS: risperiDONE 1 MG TAB PO (19:34)
--- NOTE | 2022-01-14 20:17 | PDOC.MHPN2 ---
Date of service: 01/14/22 Time of Service: 20:05 Mental Health Emergency Note Release [facility] release signed:: No Reason for Visit Client is being held on involuntary status awaiting placement at [facility] ED on MH warrant. In the last 2 weeks has the pt presented for ES prior to today?: Unknown Impression This QMHP requested to speak to client's attending MD or nurse in order to gain collateral for MH Warrant currently in place. This policy writer sales spoke with attending nurse Brii Marley. Ayaka reports she has been his acting provided since 11 am this morning. Yessi-Messenger reports client was escalated earlier this am, which required a code silver to be order due to client attempting to leave [facility] ED. Yessi-Messenger states client was able to be redirected and deescalated after some time. Yessi-Messenger reports client remains to be presenting with internal stimuli; eg. client is seen in his room talking to himself. Yessi-Messenger reports client is eating fine; client is reported to have eaten 3x today. Yessi-Messenger reports client sleep habits have improved; eg. client was seen sleeping 2-3 hr in the afternoon. Yessi-Messenger reports at time client is resistant to care, but can be easily redirected. Yessi-Jazmin stated tonight client refused to take his insulin, however was compliant in taking his metformin. Yessi-Messenger reports client's blood insulin levels were elvated this am, reading around the 500's. Since this afternoon they have trended downwards to 348 around both lunch and dinner. Yessi-Messenger states client has been appropriate otherwise, however it should be noted, when working with this client limit setting is crucial. Plan/Disposition Recommended Disposition: Hospitalization facilities contacted. Plan: Client is to await in [facility] ED until placement for IP tx is secured. Client will be reassessed once daily by a QMHP. In addition, collateral information will be gathered from attending MD or nurse once daily. Reports/communication Outcome discussed with: ED/Personnel (Brii Marley)
--- NOTE | 2022-01-14 20:53 | NUR.NOTE ---
The patient is requesting apple juice. He was told that his blood sugar was due to be checked at 2200 hours and depending on the outcome of that, he might be able to have some juiced. Moments later he appeared to be having an argument with someone in his room, sitting to his left, which would be the wall. He began raising his voice and using profanity. He was again told that he needed to lower his voice and stop swearing.
--- NOTE | 2022-01-14 21:35 | NUR.NOTE ---
Patient refused blood sugar test. Stated he would do it before breakfast. Nursing Note:
[2022-01-15 05:59] VITALS: BP 147/88; PULSE 120; RESP 18; TEMP 37.4; O2SAT 94
[2022-01-15] MEDS: Insulin Aspart 300 UNITS/3 ML PEN SC ×3 (07:18→17:05)
[2022-01-15] MEDS: metFORMIN 500 MG TAB 1000 MG PO ×2 (10:01→17:05)
--- NOTE | 2022-01-15 12:02 | W.EDPROG ---
Date of service: 01/15/22 Time of Service: 12:03 Medical Decision Making pt still pending placement, remains with disorganized thought and still having conversations with himself, remains stable. Sign Out Sign Out Data: Sign Out Comment: Patient has BMP pending this morning and will need potentially further insulin dosing until blood sugar better controlled. He is on an EE pending second certification. Has been calm and cooperative overnight. Last updated by Romie Robles MD at 01/10/22 07:50 Sign Out Comment: EE. Continues to refuse meds and have outbursts at times but able to be redirected. Continue to monitor overnight while awaiting placement. Last updated by Ila Hernandez DO at 01/13/22 23:03 Sign Out Comment: EE. Awaiting placement. Poorly controlled DM (intermittently not taking his metformin), Given subq insulin this morning with breakfast Last updated by Wally Dove MD at 01/14/22 07:37 Sign Out Comment: ee for decompensated schizophrenia, on sliding scale insulin as he has repeatedly refused metformin Last updated by Hi Cardoza MD at 01/14/22 17:54 Sign Out Comment: No events overnight. Awaiting placement. Last updated by Ila Hernandez DO at 01/15/22 07:02 Sign Out Comment: 2nd cert performed. Glucose improved to mid 300's. Last updated by Greg Mart MD at 01/10/22 18:34 Sign Out Comment: Blood sugars better and patient taking his glucophage. Will need to continue to follow and dose with insulin as needed. He is pending placement after 2nd certification yesterday. Last updated by Romie Robles MD at 01/11/22 07:43 Sign Out Comment: EE, awaiting placement; Juni will reconsider if diabetes more controlled Last updated by Wally Dove MD at 01/11/22 17:05 Sign Out Comment: Patient pending psychiatric placement. Patient stable throughout the night. No interventions needed. Last updated by Goyo Harding DO at 01/11/22 23:08 Sign Out Comment: continues to be tangential and talking to self, little sleep, sugars in the 300 range; pending placement. Last updated by Romie Robles MD at 01/12/22 08:21 Sign Out Comment: Patient has continued to have intermittent aggressive outbursts that are not directed at any individuals but has been heard screaming killed their kids. He did agree to take metformin earlier today. I have ordered Risperdal in hopes that he would agree to take this as an antipsychotic. Patient continues to await inpatient psychiatric treatment placement Last updated by Dominic Sebastian MD at 01/12/22 19:52 Sign Out Comment: Continues to be agitated more so this morning than previous. Refusing oral medications but did take IM Zyprexa. Continues to wait for psychiatric bed availability. Last updated by Romie Robles MD at 01/13/22 07:21 Sign Out Comment: Follow-up on medicine consult. Patient awaiting psychiatric inpatient placement. Last updated by Domiinc Sebastian MD at 01/13/22 15:41 Discharge Plan Disposition Patient Disposition: STILL A PATIENT Condition: Stable Discharge Details Clinical Impression: Schizoaffective disorder Primary Care Provider: Unknown,Unknown ED Provider: Hi Cardoza Home Meds and New Rx's Prescriptions: No Action diphenhydramine HCl [Benadryl] 25 mg Capsule 25 mg PO HS PRN PRN
--- NOTE | 2022-01-15 17:53 | CMSP_ITS ---
- If Service Date Differs Date of service: 01/15/22 Time of Service: 17:53 Care Management Safety Plan Status: Involuntary - Reason for Wait Reason for Wait: Inpatient Admission No changes to safety plan. Safety plan has been established to meet the needs of the patient, and consideration of the care team, to adhere to patient goals, identify restrictions based on behavioral status, address nutrition, and determine allowed personal belongings, tools for hygiene and personal care. Determine level of activity including ambulation, level of supervision, visitors, and determine privileges based on behaviors and level of engagement by pt. SAFETY PLAN: 1. Will remain on SI/HI precautions. In Paper Clothes 2. Will remain in room under direct supervision of one-on-one staff at all times provided by CPSO, CARGO VESSEL STEWARDESS, OLD COIN DEALER donor services team leader. 3. May have paper cups, plates, finger foods as well as a cardboard spoon to eat meals. 4. Follow [facility] Management of the Admitted Behavioral Health Patient policy. 5. Comfort bath system only. 6. No personal belongings 7. Visitors: None at this time. 8. Activities: Soft cart items and other activities at RN discretion. 9. Bathroom privileges with escort in the ED. 10. Phone: Limited to legal contacts via cordless hospital phone at RN discretion. 11. Due to INVOLUNTARY status, patient is being held at [facility] by the Department of Mental Health ([facility]). A Second Certification by Psychiatrist occurred on 01/10/22 and upheld the EE. Staff will provide de-escalation support (CPI) as needed. If patient wishes to leave [facility], staff will contact [facility] Crisis Screener ([phone]) and On-Call Lunch Wagon Operator ([phone]) as soon as possible. In the event of elopement, notify [place] [employer] Police ([phone]). Patient is currently involuntarily at [facility]. [facility] Frontline Casey Saw Operator will continue seeking placement. Please contact the Truck Crane Operator Lunch Wagon Operator ([phone]) for any needed changes to Safety Plan. Safety plan has been provided to interdepartmental care team. Patient will be transported by [employer] at time of discharge. cc:
--- NOTE | 2022-01-16 00:06 | NUR.NOTE ---
Nursing Note: Assumed direct observation responsibilities from MAX Chaudhary at this time.
--- NOTE | 2022-01-16 01:18 | W.EDPROG ---
Date of service: 01/16/22 Time of Service: 01:00 Medical Decision Making No events overnight. Case endorsed to oncoming provider to continue to monitor while awaiting placement. Patient refused risperidone this morning. Patient agreed to take insulin before both breakfast and lunch, ate both meals. Concern for possible electrolyte/metabolic derangement given persistent elevated blood sugars, plan for BMP. Patient initially refused BMP. Blood draw was attempted by lab, patient was moving and clenching fist, blood draw was unsuccessful. Patient became agitated after eating lunch, demanding to speak to the police, demanding to leave the hospital, stating I need to karley you guys, the equipment used for the blood draw was completely unprofessional referring to the butterfly needle. Patient left his room and was standing at doors to the waiting room demanding to speak to the police and demanding to leave the hospital. Patient stated to me I refuse to talk to you, you're blonde, you think that just because you are blonde you can act completely unprofessionally. After lengthy verbal de-escalation patient agreed to p.o. meds and agreed to return to his room. Patient took p.o. down and p.o. Zyprexa. Patient agreed to repeat lab draw. At time of shift change patient is sleeping. Labs reviewed, sodium 126 (corrected sodium greater than 130, concern for pseudohyponatremia). Anion gap 13.9, glucose 48, carbon dioxide 23.1. Does not meet criteria for DKA. We will continue to monitor. Patient signed out to Dr. Dove at time of shift change with inpatient placement pending. Medical Records Medical records reviewed: Yes I reviewed the patient's medical records. Lab Data Lab results reviewed: Yes I reviewed the patient's lab results. Sign Out Sign Out Data: Sign Out Comment: Patient has BMP pending this morning and will need potentially further insulin dosing until blood sugar better controlled. He is on an EE pending second certification. Has been calm and cooperative overnight. Last updated by Romie Robles MD at 01/10/22 07:50 Sign Out Comment: EE. Continues to refuse meds and have outbursts at times but able to be redirected. Continue to monitor overnight while awaiting placement. Last updated by Ila Hernandez DO at 01/13/22 23:03 Sign Out Comment: EE. Awaiting placement. Poorly controlled DM (intermittently not taking his metformin), Given subq insulin this morning with breakfast Last updated by Wally Dove MD at 01/14/22 07:37 Sign Out Comment: ee for decompensated schizophrenia, on sliding scale insulin as he has repeatedly refused metformin Last updated by Hi Cardoza MD at 01/14/22 17:54 Sign Out Comment: No events overnight. Awaiting placement. Last updated by Ila Hernandez DO at 01/15/22 07:02 Sign Out Comment: no events during the day Last updated by Hi Cardoza MD at 01/15/22 18:36 Sign Out Comment: No events overnight. Awaiting placement. Last updated by Ila Hernandez DO at 01/16/22 01:15 Sign Out Comment: Patient signed out to Dr. Dove at time of shift change awaiting inpatient placement. Last updated by Cassandra Sebastian MD at 01/16/22 15:42 Sign Out Comment: EE. Awaiting placement. Mental health to reassess in AM. If other psych patient upstairs gets placed beforehand, consider [facility] admission Last updated by Wally Dove MD at 01/16/22 23:04 Sign Out Comment: Continues on EE and awaiting placement. Still rambling overnight and mildly agitated but overall no issues. Last updated by Romie Robles MD at 01/17/22 08:00 Sign Out Comment: no issues during the day Last updated by Hi Cardoza MD at 01/17/22 18:46 Sign Out Comment: 2nd cert performed. Glucose improved to mid 300's. Last updated by Greg Mart MD at 01/10/22 18:34 Sign Out Comment: No issues overnight. Remains on EE and still continuously talking to self in the room, periodically becoming somewhat agitated. Overall redirectable and cooperative. Last updated by Romie Robles MD at 01/18/22 07:32 Sign Out Comment: Blood sugars better and patient taking his glucophage. Will need to continue to follow and dose with insulin as needed. He is pending placement after 2nd certification yesterday. Last updated by Romie Roblse MD at 01/11/22 07:43 Sign Out Comment: EE, awaiting placement; Juni will reconsider if diabetes more controlled Last updated by Wally Dove MD at 01/11/22 17:05 Sign Out Comment: Patient pending psychiatric placement. Patient stable throughout the night. No interventions needed. Last updated by Goyo Harding DO at 01/11/22 23:08 Sign Out Comment: continues to be tangential and talking to self, little sleep, sugars in the 300 range; pending placement. Last updated by Romie Robels MD at 01/12/22 08:21 Sign Out Comment: Patient has continued to have intermittent aggressive outbursts that are not directed at any individuals but has been heard screaming killed their kids. He did agree to take metformin earlier today. I have ordered Risperdal in hopes that he would agree to take this as an antipsychotic. Patient continues to await inpatient psychiatric treatment placement Last updated by Dominic Sebastian MD at 01/12/22 19:52 Sign Out Comment: Continues to be agitated more so this morning than previous. Refusing oral medications but did take IM Zyprexa. Continues to wait for psychiatric bed availability. Last updated by Romie Robles MD at 01/13/22 07:21 Sign Out Comment: Follow-up on medicine consult. Patient awaiting psychiatric inpatient placement. Last updated by Dominic Sebatsian MD at 01/13/22 15:41 Discharge Plan Disposition Patient Disposition: STILL A PATIENT Condition: Stable Discharge Details Clinical Impression: Schizoaffective disorder Primary Care Provider: Unknown,Unknown ED Provider: Dominic Sebastian Home Meds and New Rx's Prescriptions: No Action diphenhydramine HCl [Benadryl] 25 mg Capsule 25 mg PO HS PRN PRN
[2022-01-16] MEDS: Insulin Aspart 300 UNITS/3 ML PEN SC ×2 (07:20→12:00)
[2022-01-16] MEDS: metFORMIN 500 MG TAB 1000 MG PO (07:22)
[2022-01-16] MEDS: OLANZapine 10 MG TAB PO (13:45)
[2022-01-16] MEDS: risperiDONE 1 MG TAB PO (13:46)
[2022-01-16 14:22] LABS: Anion Gap 13.9 mmol/L (3-11); BUN 29 mg/dL (7-18); CO2 23.1 mmol/L (21.0-32.0); CREATININE 1.5 mg/dL (0.70-1.30); Calcium 9.8 mg/dL (8.5-10.1); Chloride 89 mmol/L (98-107); Estimated GFR 57.43 (mL/min/1.73m2); Glucose 488 mg/dL (74-106); Potassium 4.7 mmol/L (3.5-5.1); Sodium 126 mmol/L (136-145)
--- NOTE | 2022-01-16 15:34 | PDOC.MHPN2 ---
Date of service: 01/16/22 Time of Service: 15:34 Mental Health Emergency Note Release [facility] release signed:: Yes Reason for Visit Client is being held on a MH Warrant. This is his daily assessment. His screening tools have not been completed as he is experiencing a thought disturbance so cannot focus to do them. In the last 2 weeks has the pt presented for ES prior to today?: Yes, presented at (Was at the ED earlier the same day with issues relating ot his diabeties. ) [facility] ED Client Information Client is: Adult Outpatient Well Housed: No,status: Homeless Unstable housing Non Suicidal Self Injury Current: No History: No Safety Risk/Harm to Self or Others Current Ideation to Harm Self or Others: No Risk: Does risk to harm exist?: yes. Access to means: No. Risk: High Risk Duty to warn indicated: No Asssessment/Mental Status Appearance: Disheveled Attitude: Cooperative Behavior: Agitated Speech: Normal and Loud Affect: Flat Mood: Anxious and Irritable Thought process: Circumstational and Tangential Hallucinations: No Delusions: No Attention: Wandering and Poor concentration Perception: Derealization Orientation: Disoriented in Time and Situation Memory: Impaired in: Recent Insight: Poor Judgement: Poor Neurovegetative Symptoms Sleep: No change Appetitie: No change Interests: No change Energy: No change Libido: Not applicable Substance Use: Do you use nicotine?: No Have you used substances in the last 7 days?: No Additional Issues: Assaultive/Threatening Behavior: No Medical Concerns: Yes Client engaged in active self harm w/weapon: No Threatening to run away: No Child reported abuse/neglect: No Voluntarily presenting for services: No Domestic violence is a concern: No Extreme Psychosis or extreme behavior is present: Yes Impression Client continues to struggle with accepting medications that could greatly improve his health. As a result, the client is showing poor insight and judgment. He was offered Risperdone this am while this clinician was present and he denied that he was prescribed this and would not accept. Client lays in bed while we meet. He stated that he does not want to go to a hospital that he wants to go home to his family. This clinician informed him that we would need to see that he is accepting of treatments that could greatly improve his health. Client stated that he refused the medication because the hospital had mess up his veins and now he has food poisoning and that is what caused the cramps in his legs and body. He reported that he is feeling better now. Plan/Disposition Recommended Disposition: Hospitalization facilities contacted. Person reported agreement to plan: No Facilities contacted if Applicable [facility] Not accepted, ( ) Medical reasons and Other (No insurance ) [facility] Not accepted, [facility] (On unit) [facility] Not accepted, ( ) Other (Left message), [facility] Not accepted, Medical reasons [facility] Not accepted, Other (declined due to medical and lack of insurance ) Reports/communication Outcome discussed with: ED/Personnel
--- NOTE | 2022-01-16 18:14 | CMSP_ITS ---
- If Service Date Differs Date of service: 01/16/22 Time of Service: 18:14 Care Management Safety Plan Status: Involuntary - Reason for Wait Reason for Wait: Inpatient Admission No changes to safety plan. Safety plan has been established to meet the needs of the patient, and consideration of the care team, to adhere to patient goals, identify restrictions based on behavioral status, address nutrition, and determine allowed personal belongings, tools for hygiene and personal care. Determine level of activity including ambulation, level of supervision, visitors, and determine privileges based on behaviors and level of engagement by pt. SAFETY PLAN: 1. Will remain on SI/HI precautions. In Paper Clothes 2. Will remain in room under direct supervision of one-on-one staff at all times provided by CPSO, MUFFLER MECHANIC, CYLINDER BATCHER nursing program coordinator. 3. May have paper cups, plates, finger foods as well as a cardboard spoon to eat meals. 4. Follow [facility] Management of the Admitted Behavioral Health Patient policy. 5. Comfort bath system only. 6. No personal belongings 7. Visitors: None at this time. 8. Activities: Soft cart items and other activities at RN discretion. 9. Bathroom privileges with escort in the ED. 10. Phone: Limited to legal contacts via cordless hospital phone at RN discretion. 11. Due to INVOLUNTARY status, patient is being held at [facility] by the Department of Mental Health ([facility]). A Second Certification by Psychiatrist occurred on 01/10/22 and upheld the EE. Staff will provide de-escalation support (CPI) as needed. If patient wishes to leave [facility], staff will contact [facility] Crisis Screener ([phone]) and On-Call Slag Skimmer ([phone]) as soon as possible. In the event of elopement, notify [place] State Police ([phone]). Patient is currently involuntarily at [facility]. [facility] Frontline Orientation And Mobility Instructor will continue seeking placement. Please contact the Soup Person Slag Skimmer ([phone]) for any needed changes to Safety Plan. Safety plan has been provided to interdepartmental care team. Patient will be transported by [employer] at time of discharge.
--- NOTE | 2022-01-16 18:14 | CMPROGNOTE_ITS ---
- If Service Date Differs Date of service: 01/16/22 Time of Service: 18:14 Care Management Progress Note S/O: Yadiel remains hospitalized awaiting involuntary placement. He continues to refuse many of his medications and has had a code valadez called twice today. Yadiel continues to respond to internal stimuli and is seen and heard talking to himself. He was screened by [facility] crisis screener Nika Rome today. Referrals have been sent to the psychiatric facilities in [place] but so far he has been declined due to his diabetes, medical issues and acuity. A: Yadiel is a 46 year old male awaiting an involuntary psychiatric placement. P: Referrals are faxed to [facility], [facility] and [facility] for review. [facility] declines due to patient's medical needs and [facility] also declines due to patient's acuity level. We await determination from [facility]. A referral is not sent to [facility] as they are only accepting in-house referrals at this time. Yadiel will remain on involuntary status at [facility] and will be reassessed twice daily by [facility] until a psychiatric bed can be secured for him. CM will continue to follow.
[2022-01-17] MEDS: Insulin Aspart 300 UNITS/3 ML PEN SC ×2 (08:00→17:01)
[2022-01-17] MEDS: metFORMIN 500 MG TAB 1000 MG PO ×2 (08:01→17:02)
--- NOTE | 2022-01-17 09:18 | PDOC.CMSAFED ---
- If Service Date Differs Date of service: 01/17/22 Time of Service: 09:18 Care Management Safety Plan Status: Involuntary - Reason for Wait Reason for Wait: Inpatient Admission No changes to safety plan. Safety plan has been established to meet the needs of the patient, and consideration of the care team, to adhere to patient goals, identify restrictions based on behavioral status, address nutrition, and determine allowed personal belongings, tools for hygiene and personal care. Determine level of activity including ambulation, level of supervision, visitors, and determine privileges based on behaviors and level of engagement by pt. SAFETY PLAN: 1. Will remain on SI/HI precautions. In Paper Clothes 2. Will remain in room under direct supervision of one-on-one staff at all times provided by CPSO, MANAGER PRICING, BREAD PANNER cork insulation setter. 3. May have paper cups, plates, finger foods as well as a cardboard spoon to eat meals. 4. Follow [facility] Management of the Admitted Behavioral Health Patient policy. 5. Comfort bath system only. 6. No personal belongings 7. Visitors: None at this time. 8. Activities: Soft cart items and other activities at RN discretion. 9. Bathroom privileges with escort in the ED. 10. Phone: Limited to legal contacts via cordless hospital phone at RN discretion. 11. Due to INVOLUNTARY status, patient is being held at [facility] by the Department of Mental Health ([facility]). A Second Certification by Psychiatrist occurred on 01/10/22 and upheld the EE. Staff will provide de-escalation support (CPI) as needed. If patient wishes to leave [facility], staff will contact [facility] Crisis Screener ([phone]) and On-Call Despatching And Receiving Clerk ([phone]) as soon as possible. In the event of elopement, notify [place] [employer] ([phone]). Patient is currently involuntarily at [facility]. [facility] Frontline Global Analytics Head will continue seeking placement. Please contact the [employer] Despatching And Receiving Clerk ([phone]) for any needed changes to Safety Plan. Safety plan has been provided to interdepartmental care team. Patient will be transported by [employer] at time of discharge.
--- NOTE | 2022-01-17 09:43 | W.EDPROG ---
Date of service: 01/17/22 Time of Service: 09:43 Medical Decision Making pt still pending placement for decompensated schizophrenia, currently calm but still carrying on nonsensical conversations with himself. Sign Out Sign Out Data: Sign Out Comment: Patient has BMP pending this morning and will need potentially further insulin dosing until blood sugar better controlled. He is on an EE pending second certification. Has been calm and cooperative overnight. Last updated by Romie Rboles MD at 01/10/22 07:50 Sign Out Comment: EE. Continues to refuse meds and have outbursts at times but able to be redirected. Continue to monitor overnight while awaiting placement. Last updated by Ila Hernandez DO at 01/13/22 23:03 Sign Out Comment: EE. Awaiting placement. Poorly controlled DM (intermittently not taking his metformin), Given subq insulin this morning with breakfast Last updated by aWlly Dove MD at 01/14/22 07:37 Sign Out Comment: ee for decompensated schizophrenia, on sliding scale insulin as he has repeatedly refused metformin Last updated by Hi Cardoza MD at 01/14/22 17:54 Sign Out Comment: No events overnight. Awaiting placement. Last updated by Ila Hernandez DO at 01/15/22 07:02 Sign Out Comment: no events during the day Last updated by Hi Cardoza MD at 01/15/22 18:36 Sign Out Comment: No events overnight. Awaiting placement. Last updated by Ila Hernandez DO at 01/16/22 01:15 Sign Out Comment: Patient signed out to Dr. Dove at time of shift change awaiting inpatient placement. Last updated by Cassandra Sebastian MD at 01/16/22 15:42 Sign Out Comment: EE. Awaiting placement. Mental health to reassess in AM. If other psych patient upstairs gets placed beforehand, consider [facility] admission Last updated by Wally Dove MD at 01/16/22 23:04 Sign Out Comment: Continues on EE and awaiting placement. Still rambling overnight and mildly agitated but overall no issues. Last updated by Romie Robles MD at 01/17/22 08:00 Sign Out Comment: 2nd cert performed. Glucose improved to mid 300's. Last updated by Greg Mart MD at 01/10/22 18:34 Sign Out Comment: Blood sugars better and patient taking his glucophage. Will need to continue to follow and dose with insulin as needed. He is pending placement after 2nd certification yesterday. Last updated by Romie Robles MD at 01/11/22 07:43 Sign Out Comment: EE, awaiting placement; Juni will reconsider if diabetes more controlled Last updated by Wally Dove MD at 01/11/22 17:05 Sign Out Comment: Patient pending psychiatric placement. Patient stable throughout the night. No interventions needed. Last updated by Goyo Harding DO at 01/11/22 23:08 Sign Out Comment: continues to be tangential and talking to self, little sleep, sugars in the 300 range; pending placement. Last updated by Romie Robles MD at 01/12/22 08:21 Sign Out Comment: Patient has continued to have intermittent aggressive outbursts that are not directed at any individuals but has been heard screaming killed their kids. He did agree to take metformin earlier today. I have ordered Risperdal in hopes that he would agree to take this as an antipsychotic. Patient continues to await inpatient psychiatric treatment placement Last updated by Dominic Sebastian MD at 01/12/22 19:52 Sign Out Comment: Continues to be agitated more so this morning than previous. Refusing oral medications but did take IM Zyprexa. Continues to wait for psychiatric bed availability. Last updated by Romie Robles MD at 01/13/22 07:21 Sign Out Comment: Follow-up on medicine consult. Patient awaiting psychiatric inpatient placement. Last updated by Dominic Sebastian MD at 01/13/22 15:41 Discharge Plan Disposition Patient Disposition: STILL A PATIENT Condition: Stable Discharge Details Clinical Impression: Schizoaffective disorder Primary Care Provider: Unknown,Unknown ED Provider: Hi Cardoza Home Meds and New Rx's Prescriptions: No Action diphenhydramine HCl [Benadryl] 25 mg Capsule 25 mg PO HS PRN PRN
[2022-01-17] MEDS: diphenhydrAMINE 25 MG CAP 50 MG PO (13:33)
--- NOTE | 2022-01-17 15:56 | CMPROGNOTE_ITS ---
- If Service Date Differs Date of service: 01/17/22 Time of Service: 15:56 Care Management Progress Note S/O: Yadiel remains hospitalized awaiting involuntary placement. He is more cooperative today than he has been over the last couple of days and willingly took the Metformin and Insulin this morning. He continues to have moments of agitation where he speaks loudly and goes on tangents about the government. He was screened by Volodymyr, [facility] crisis screener/QMHP, today. Referrals have been sent to the psychiatric facilities in [place] but there has not yet been a bed offer. A: Yadiel is a 46 year old male awaiting an involuntary psychiatric placement. P: [facility] to [facility], [facility], [facility], and [facility] for review. [place] declines due to patient's medical needs and [place] also declines due to patient's acuity level. We await determination from [facility] and [facility]. Yadiel will remain on involuntary status at [facility] and will be reassessed twice daily by [facility] until a psychiatric bed can be secured for him. CM will continue to follow. - Status Status: Involuntary - Reason for Wait Reason for Wait: Inpatient Admission
[2022-01-17] MEDS: Insulin REGULAR-Human 100 UNITS/ML UNIT SC (17:02)
[2022-01-18] MEDS: Insulin REGULAR-Human 100 UNITS/ML UNIT SC ×4 (00:42→18:11)
[2022-01-18 06:18] VITALS: BP 128/87; PULSE 114; RESP 18; TEMP 36.6; O2SAT 94
--- NOTE | 2022-01-18 08:39 | PDOC.CMSAFED ---
- If Service Date Differs Date of service: 01/18/22 Time of Service: 08:39 Care Management Safety Plan Status: Involuntary - Reason for Wait Reason for Wait: Inpatient Admission No changes are made to plan. Safety plan has been established to meet the needs of the patient, and consideration of the care team, to adhere to patient goals, identify restrictions based on behavioral status, address nutrition, and determine allowed personal belongings, tools for hygiene and personal care. Determine level of activity including ambulation, level of supervision, visitors, and determine privileges based on behaviors and level of engagement by pt. SAFETY PLAN: 1. Will remain on SI/HI precautions. In Paper Clothes 2. Will remain in room under direct supervision of one-on-one staff at all times provided by CPSO, POSTAL SERVICE MAIL PROCESSOR, CURED MEATS SUPERVISOR mill operator helper. 3. May have paper cups, plates, finger foods as well as a cardboard spoon to eat meals. 4. Follow [facility] Management of the Admitted Behavioral Health Patient policy. 5. Comfort bath system only. 6. No personal belongings 7. Visitors: None at this time. 8. Activities: Soft cart items and other activities at RN discretion. 9. Bathroom privileges with escort in the ED. 10. Phone: Limited to legal contacts via cordless hospital phone at RN discretion. 11. Due to INVOLUNTARY status, patient is being held at [facility] by the Department of Mental Health ([facility]). A Second Certification by Psychiatrist occurred on 01/10/22 and upheld the EE. Staff will provide de-escalation support (CPI) as needed. If patient wishes to leave [facility], staff will contact [facility] Crisis Screener ([phone]) and On-Call Accounting Intern ([phone]) as soon as possible. In the event of elopement, notify [place] [employer] ([phone]). Patient is currently involuntarily at [facility]. [facility] Frontline Control Room Helper will continue seeking placement. Please contact the Marketing Director Accounting Intern ([phone]) for any needed changes to Safety Plan. Safety plan has been provided to interdepartmental care team. Patient will be transported by [employer] at time of discharge.
--- NOTE | 2022-01-18 08:40 | CMPROGNOTE_ITS ---
- If Service Date Differs Date of service: 01/18/22 Time of Service: 08:40 Care Management Progress Note S/O: Yadiel remains hospitalized at [facility] and is awaiting an involuntary placement. Today is his 10th day at [facility]. He remains cooperative and is willingly taking his diabetes medication. He is eating and sleeping well. He continues to experience auditory hallucinations and is frequently witnessed talking to himself. He is screened by Rachel, [facility] crisis screener/HP, today. Referrals have been sent to all psychiatric facilities in [place]. A: Yadiel is a 46 year old male awaiting an involuntary psychiatric placement. P: [facility], [facility], [facility], and [facility] for review. [place] declines due to patient's medical needs and [place] also declines due to patient's acuity level. We await determination from [facility] and [facility]. Yadiel will remain on involuntary status at [facility] and will be reassessed twice daily by [facility] until a psychiatric bed can be secured for him. CM will continue to follow. - Status Status: Involuntary - Reason for Wait Reason for Wait: Inpatient Admission
--- NOTE | 2022-01-18 08:40 | PDOC.ERCMPRO ---
- If Service Date Differs Date of service: 01/18/22 Time of Service: 08:40 Care Management Progress Note S/O: Yadiel remains hospitalized at [facility] and is awaiting an involuntary placement. Today is his 10th day at [facility]. He remains cooperative and is willingly taking his diabetes medication. He is eating and sleeping well. He continues to experience auditory hallucinations and is frequently witnessed talking to himself. He is screened by Rachel, [facility] crisis screener/HP, today. Referrals have been sent to all psychiatric facilities in [place]. A: Yadiel is a 46 year old male awaiting an involuntary psychiatric placement. P: Referrals are faxed to [facility], [facility], [facility], and [facility] for review. [place] declines due to patient's medical needs and [place] also declines due to patient's acuity level. We await determination from [facility] and [facility]. Yadiel will remain on involuntary status at [facility] and will be reassessed twice daily by [facility] until a psychiatric bed can be secured for him. CM will continue to follow. - Status Status: Involuntary - Reason for Wait Reason for Wait: Inpatient Admission
[2022-01-18] MEDS: metFORMIN 500 MG TAB 1000 MG PO ×2 (09:15→17:10)
--- NOTE | 2022-01-18 10:43 | PDOC.MHPN2 ---
Date of service: 01/18/22 Time of Service: 10:28 Mental Health Emergency Note Release [facility] release signed:: Yes Reason for Visit Client is on EE status at [facility]. In the last 2 weeks has the pt presented for ES prior to today?: Unknown Client Information Client is: New Well Housed: No,status: Homeless Non Suicidal Self Injury Current: No History: No Safety Risk/Harm to Self or Others Current Ideation to Harm Self or Others: No Risk: Does risk to harm exist?: No Risk: N/A Duty to warn indicated: No Asssessment/Mental Status Appearance: Disheveled and Poor hygiene (Client reports he has not showered since being in the hospital. ) Attitude: Cooperative and Guarded Behavior: Unremarkable Speech: Normal Affect: Cogruent with mood Mood: Stressed Thought process: Flight of ideas Hallucinations: yes, (Client reports voices are talking to him.) Auditory Delusions: yes, Bizarre and Thought broadcasting Attention: Wandering and Poor concentration Perception: Not impaired Orientation: Fully orientated Memory: Intact Insight: Poor Judgement: Poor Neurovegetative Symptoms Sleep: Increase Appetitie: No change Interests: No change Energy: No change Libido: Not applicable Substance Use: Do you use nicotine?: No Have you used substances in the last 7 days?: No Additional Issues: Assaultive/Threatening Behavior: No Medical Concerns: Yes Client engaged in active self harm w/weapon: No Threatening to run away: No Child reported abuse/neglect: No Voluntarily presenting for services: No Domestic violence is a concern: No Extreme Psychosis or extreme behavior is present: Yes Impression CP reports he is not currently endorsing SI/HI/NSSI. CP stopped responding to this clinician's assessment and started responding to his internal stimuli. CP reports he has been hearing voices. CP broadcasts his thoughts about white racist republicans, Barrack Obama, and Judith Vargas. CP reports he is refusing his medications because he is not prescribed them, this handbook writer attempted to explain the ED Doctor was prescribing them and he did not want to partake in that conversation. CP reports he has been having muscle spasms and cramps and reports being in the hospital due to those spasms and food poisoning. CP seems to be stuttering when responding to these questions. Plan/Disposition Recommended Disposition: Hospitalization facilities contacted. Plan: Client is waiting at [facility] for a bed to be available. CP wants to be transferred out of [facility]. Person reported agreement to plan: Yes Facilities contacted if Applicable [facility] Not accepted, Medical reasons [facility] Not accepted, No bed available [facility] Not accepted, No bed available and Acuity, [facility] Not accepted, No bed available [facility] Not accepted, Medical reasons and Acuity Reports/communication Reports: Other (Frederick Cobos - [facility] Credit Assistant ) Outcome discussed with: ED/Personnel and Other (Frederick Cobos - [facility] Credit Assistant )
[2022-01-18 10:45] LABS: Anion Gap 6.6 mmol/L (3-11); BUN 21 mg/dL (7-18); CO2 29.4 mmol/L (21.0-32.0); CREATININE 1.1 mg/dL (0.70-1.30); Calcium 9.5 mg/dL (8.5-10.1); Chloride 92 mmol/L (98-107); Estimated GFR 83.32 (mL/min/1.73m2); Glucose 372 mg/dL (74-106); Potassium 4.5 mmol/L (3.5-5.1); Sodium 128 mmol/L (136-145)
--- NOTE | 2022-01-18 13:20 | W.MEDCONSULT ---
Date of service: 01/18/22 Time of Service: 13:20 Assessment and Plan Assessment and plan (1) Uncontrolled type 2 diabetes mellitus with hyperglycemia: Status: Acute Assessment and plan: Add long acting and scheduled prandial carb coverage insulin to the SSI and metformin. Check A1C, FLP, recheck BMP/mag. DM educator consulted. Hypoglycemia medications ordered. (2) Acute electrocardiogram changes: Status: Chronic Assessment and plan: Mentioned in the ED note. The patient is asymptomatic. Will attempt to find/review records from [facility] to see what kind of workup the patient has had as far as his cardiac status. I think at this point any cardiac workup would be outpatient. (3) Tinea pedis: Status: Acute Assessment and plan: rx topical ketoconazole History of Present Illness History of Present Illness Chief Complaint: Consult for help with glycemic control in a type 2 diabetic Narrative: Mr Vides is a 46 year old male with PMHx of Diabetes, schizoaffective d/o, elevated troponins and bacteremia on prior admission to [facility], noncompliant with medications, who is homeless and is currently under EE on MH warrant for acute psychosis at [facility] emergency department awaiting psychiatric placement, whom the hospitalist service was asked to see for help with diabetes management. The patient had been initiated on metformin 1,000 mg PO BID as well as a resistant sliding scale. Despite this, he continues to have BGs in high 200s-300s. On arrival to the ER, he reported his chief complaint being R shoulder pain and muscle cramps and spasms. He has been hallucinating and until yesterday evening refusing care. He has been permitting insulin injections in the last 24 hrs. On arrival to ER, the patient was noted to have changes to his EKG, but did not appear to be interested in having this investigated. On my exam, the patient reports that he has been eating a very diverse diet. He specifically denies having chest pain, shortness of breath, abdominal pain, nausea, numbness/tingling/burning sensation in his feet. He would like a shower. Consults Consult date: 01/18/22 Requesting physician: Dominic Sebastian Review of Systems All systems reviewed & are unremarkable except as noted in HPI and below PFSH All Active Problems (Updated 01/18/22 @ 15:42 by Lillie Vergara MD) Tinea pedis (Acute) Diabetes mellitus (Chronic) Acute electrocardiogram changes (Chronic) Uncontrolled type 2 diabetes mellitus with hyperglycemia (Acute) Schizoaffective disorder (Acute) Acute shoulder pain (Acute) Medical History (Updated 01/18/22 @ 15:42 by Lillie Vergara MD) Diabetes mellitus Schizoaffective disorder Surgical History (Updated 01/10/22 @ 01:01 by Romie Robles MD) No significant past surgical history Social History Smoking/Tobacco Use Status: Never Smoking risk assessment performed?: Yes Alcohol Intake: never Additional Social history: Pt is homeless he has been sleeping outdoors for over 3 months now. Exam Narrative Exam Narrative: General: Middle-aged male with pressured tangential speech, A&ox3 Neurological: A&Ox3, no focal deficits Psychiatric: Pressured tangential speech, but answers questions appropriately and in a sensical way Skin: Tinea pedis; otherwise, intact; no lesions on B feet HEENT: Atraumatic, normocephalic, EOMI, MMM, clear oropharynx, no submandibular or cervical lymphadenopathy, no goiter or JVD Cardiovascular: RRR, no m/r/g Lungs: CTAB Gastrointestinal: soft, nontender, nondistended Genitourinary: deferred Extremities: tinea pedis, 1+ pedal pulses B, no c/c. Results Last Vital Signs Temp 36.6 C 01/18/22 06:18 Pulse 114 H 01/18/22 06:18 Resp 18 01/18/22 06:18 BP 128/87 01/18/22 06:18 Pulse Ox 94 01/18/22 06:18 Labs Result diagrams: 01/09/22 23:30 01/18/22 10:18 Labs: Laboratory Results - last 24 hr 01/18/22 01/18/22 10:18 Unknown Sodium 128 L Potassium 4.5 Chloride 92 L Carbon Dioxide 29.4 Anion Gap 6.6 BUN 21 H Creatinine 1.1 Est GFR (CKD-EPI 2020) 83.32 Glucose 372 H Calcium 9.5 Add-On Test Request TNP Imaging Additional studies: CXR 01/09/22: Limited exam.? Bibasilar atelectasis versus infiltrates. XR R shoulder 01/09/22: Unremarkable radiographs of the right shoulder.
[2022-01-18] MEDS: Insulin Glargine 300 UNITS/3 ML PEN 30 UNITS SC (14:12)
--- NOTE | 2022-01-18 15:30 | ED.PROG_ITS ---
Date of service: 01/18/22 Time of Service: 15:30 Medical Decision Making Care signed out by Dr. Robles. Patient awaiting psychiatric inpatient placement. Patient was reassessed and continues to exhibit acute psychosis. No violent outburst. I consulted hospitalist service for a medical consult regarding further management of diabetes. Dr. Vergara saw the patient and recommended long-acting insulin he started. I spoke with the career development coordinator/teacher at [facility], Mr. Cobos, he notes patient is high-priority and they continue to attempt to move the identified appropriate receiving facility. Sign Out Sign Out Data: Sign Out Comment: Patient has BMP pending this morning and will need potentially further insulin dosing until blood sugar better controlled. He is on an EE pending second certification. Has been calm and cooperative overnight. Last updated by Romie Robles MD at 01/10/22 07:50 Sign Out Comment: EE. Continues to refuse meds and have outbursts at times but able to be redirected. Continue to monitor overnight while awaiting placement. Last updated by Ila Hernandez DO at 01/13/22 23:03 Sign Out Comment: EE. Awaiting placement. Poorly controlled DM (intermittently not taking his metformin), Given subq insulin this morning with breakfast Last updated by Wally Dove MD at 01/14/22 07:37 Sign Out Comment: ee for decompensated schizophrenia, on sliding scale insulin as he has repeatedly refused metformin Last updated by Hi Cardoza MD at 01/14/22 17:54 Sign Out Comment: No events overnight. Awaiting placement. Last updated by Ila Hernandez DO at 01/15/22 07:02 Sign Out Comment: no events during the day Last updated by Hi Cardoza MD at 01/15/22 18:36 Sign Out Comment: No events overnight. Awaiting placement. Last updated by Ila Hernandez DO at 01/16/22 01:15 Sign Out Comment: Patient signed out to Dr. Dove at time of shift change awaiting inpatient placement. Last updated by Cassandra Sebastian MD at 01/16/22 15:42 Sign Out Comment: EE. Awaiting placement. Mental health to reassess in AM. If other psych patient upstairs gets placed beforehand, consider [facility] admission Last updated by Wally Dove MD at 01/16/22 23:04 Sign Out Comment: Continues on EE and awaiting placement. Still rambling overnight and mildly agitated but overall no issues. Last updated by Romie Robles MD at 01/17/22 08:00 Sign Out Comment: no issues during the day Last updated by Hi Cardoza MD at 01/17/22 18:46 Sign Out Comment: 2nd cert performed. Glucose improved to mid 300's. Last updated by Greg Mart MD at 01/10/22 18:34 Sign Out Comment: No issues overnight. Remains on EE and still continuously talking to self in the room, periodically becoming somewhat agitated. Overall redirectable and cooperative. Last updated by Romie Robles MD at 01/18/22 07:32 Sign Out Comment: Blood sugars better and patient taking his glucophage. Will need to continue to follow and dose with insulin as needed. He is pending placement after 2nd certification yesterday. Last updated by Romie Robles MD at 01/11/22 07:43 Sign Out Comment: EE, awaiting placement; Juni will reconsider if diabetes more controlled Last updated by Wally Dove MD at 01/11/22 17:05 Sign Out Comment: Patient pending psychiatric placement. Patient stable throughout the night. No interventions needed. Last updated by Goyo Harding DO at 01/11/22 23:08 Sign Out Comment: continues to be tangential and talking to self, little sleep, sugars in the 300 range; pending placement. Last updated by Romie Robles MD at 01/12/22 08:21 Sign Out Comment: Patient has continued to have intermittent aggressive outbursts that are not directed at any individuals but has been heard screaming killed their kids. He did agree to take metformin earlier today. I have ordered Risperdal in hopes that he would agree to take this as an antipsychotic. Patient continues to await inpatient psychiatric treatment placement Last updated by Dominic Sebastian MD at 01/12/22 19:52 Sign Out Comment: Continues to be agitated more so this morning than previous. Refusing oral medications but did take IM Zyprexa. Continues to wait for psychiatric bed availability. Last updated by Romie Robles MD at 01/13/22 07:21 Sign Out Comment: Follow-up on medicine consult. Patient awaiting psychiatric inpatient placement. Last updated by Dominic Sebastian MD at 01/13/22 15:41 Discharge Plan Disposition Patient Disposition: STILL A PATIENT Condition: Stable Discharge Details Clinical Impression: Schizoaffective disorder, Diabetes mellitus Primary Care Provider: Unknown,Unknown ED Provider: Dominic Sebastian Home Meds and New Rx's Prescriptions: No Action diphenhydramine HCl [Benadryl] 25 mg Capsule 25 mg PO HS PRN PRN
[2022-01-18] MEDS: Insulin Aspart 300 UNITS/3 ML PEN SC (18:10)
--- NOTE | 2022-01-18 19:56 | NUR.NOTE ---
This underwriter mortgage loan offered to remove cups and paper containers from his tray-side table. At first patient agreed then changed his mind and said just leave it alone.
[2022-01-19] MEDS: diphenhydrAMINE 25 MG CAP 50 MG PO ×2 (00:30→08:52)
--- NOTE | 2022-01-19 00:44 | ED.PROG_ITS ---
Date of service: 01/19/22 Time of Service: 15:00 Medical Decision Making 1500 --please see previous providers notes for initial presentation, exam and plan and course. Case endorsed to continue to monitor while awaiting placement. 0030 no events this evening.--Blood sugar remains high but continuing to downtr end slightly. Hyperglycemia being managed per medicine consult. Case endorsed to Dr Sebastian to continue to monitor while awaiting placement. Medical Records Medical records reviewed: Yes I reviewed the patient's medical records. Sign Out Sign Out Data: Sign Out Comment: Patient has BMP pending this morning and will need potentially further insulin dosing until blood sugar better controlled. He is on an EE pending second certification. Has been calm and cooperative overnight. Last updated by Romie Robles MD at 01/10/22 07:50 Sign Out Comment: EE. Continues to refuse meds and have outbursts at times but able to be redirected. Continue to monitor overnight while awaiting placement. Last updated by Ila Hernandez DO at 01/13/22 23:03 Sign Out Comment: EE. Awaiting placement. Poorly controlled DM (intermittently not taking his metformin), Given subq insulin this morning with breakfast Last updated by Wally Dove MD at 01/14/22 07:37 Sign Out Comment: ee for decompensated schizophrenia, on sliding scale insulin as he has repeatedly refused metformin Last updated by Hi Cardoza MD at 01/14/22 17:54 Sign Out Comment: No events overnight. Awaiting placement. Last updated by Ila Hernandez DO at 01/15/22 07:02 Sign Out Comment: no events during the day Last updated by Hi Cardoza MD at 01/15/22 18:36 Sign Out Comment: No events overnight. Awaiting placement. Last updated by Ila Hernandez DO at 01/16/22 01:15 Sign Out Comment: Patient signed out to Dr. Dove at time of shift change awaiting inpatient placement. Last updated by Cassandra Sebastian MD at 01/16/22 15:42 Sign Out Comment: EE. Awaiting placement. Mental health to reassess in AM. If other psych patient upstairs gets placed beforehand, consider [facility] admission Last updated by Wally Dove MD at 01/16/22 23:04 Sign Out Comment: Continues on EE and awaiting placement. Still rambling overnight and mildly agitated but overall no issues. Last updated by Romie Robles MD at 01/17/22 08:00 Sign Out Comment: no issues during the day Last updated by Hi Cardoza MD at 01/17/22 18:46 Sign Out Comment: 2nd cert performed. Glucose improved to mid 300's. Last updated by Greg Mart MD at 01/10/22 18:34 Sign Out Comment: No issues overnight. Remains on EE and still continuously talking to self in the room, periodically becoming somewhat agitated. Overall redirectable and cooperative. Last updated by Romie Robles MD at 01/18/22 07:32 Sign Out Comment: EE. Awaiting placement. Last updated by Dominic Sebastian MD at 01/18/22 16:00 Sign Out Comment: EE. Awaiting placement. Last updated by Ila Hernandez DO at 01/18/22 23:30 Sign Out Comment: Blood sugars better and patient taking his glucophage. Will need to continue to follow and dose with insulin as needed. He is pending placement after 2nd certification yesterday. Last updated by Romie Robles MD at 01/11/22 07:43 Sign Out Comment: EE, awaiting placement; Juni will reconsider if diabetes more controlled Last updated by Wally Dove MD at 01/11/22 17:05 Sign Out Comment: Patient pending psychiatric placement. Patient stable throughout the night. No interventions needed. Last updated by Goyo Harding DO at 01/11/22 23:08 Sign Out Comment: continues to be tangential and talking to self, little sleep, sugars in the 300 range; pending placement. Last updated by Romie Robles MD at 01/12/22 08:21 Sign Out Comment: Patient has continued to have intermittent aggressive outbursts that are not directed at any individuals but has been heard screaming killed their kids. He did agree to take metformin earlier today. I have ordered Risperdal in hopes that he would agree to take this as an antipsychotic. Patient continues to await inpatient psychiatric treatment placement Last updated by Dominic Sebastian MD at 01/12/22 19:52 Sign Out Comment: Continues to be agitated more so this morning than previous. Refusing oral medications but did take IM Zyprexa. Continues to wait for psychiatric bed availability. Last updated by Romie Robles MD at 01/13/22 07:21 Sign Out Comment: Follow-up on medicine consult. Patient awaiting psychiatric inpatient placement. Last updated by Dominic Sebastian MD at 01/13/22 15:41 Discharge Plan Disposition Patient Disposition: STILL A PATIENT Condition: Stable Discharge Details Clinical Impression: Schizoaffective disorder, Diabetes mellitus Primary Care Provider: Unknown,Unknown ED Provider: Dominic Sebastian Home Meds and New Rx's Prescriptions: No Action diphenhydramine HCl [Benadryl] 25 mg Capsule 25 mg PO HS PRN PRN
--- NOTE | 2022-01-19 08:03 | W.EDPROG ---
Date of service: 01/19/22 Time of Service: 08:03 Medical Decision Making Patient remained stable overnight without violent outburst. He continues to exhibit psychotic behavior. He has been compliant with insulin. Continues to await psychiatric treatment center placement. Sign Out Sign Out Data: Sign Out Comment: Patient has BMP pending this morning and will need potentially further insulin dosing until blood sugar better controlled. He is on an EE pending second certification. Has been calm and cooperative overnight. Last updated by Romie Robles MD at 01/10/22 07:50 Sign Out Comment: EE. Continues to refuse meds and have outbursts at times but able to be redirected. Continue to monitor overnight while awaiting placement. Last updated by Ila Hernandez DO at 01/13/22 23:03 Sign Out Comment: EE. Awaiting placement. Poorly controlled DM (intermittently not taking his metformin), Given subq insulin this morning with breakfast Last updated by Wally Dove MD at 01/14/22 07:37 Sign Out Comment: ee for decompensated schizophrenia, on sliding scale insulin as he has repeatedly refused metformin Last updated by Hi Cardoza MD at 01/14/22 17:54 Sign Out Comment: No events overnight. Awaiting placement. Last updated by Ila Hernandez DO at 01/15/22 07:02 Sign Out Comment: no events during the day Last updated by Hi Cardoza MD at 01/15/22 18:36 Sign Out Comment: No events overnight. Awaiting placement. Last updated by Ila Hernandez DO at 01/16/22 01:15 Sign Out Comment: Patient signed out to Dr. Dove at time of shift change awaiting inpatient placement. Last updated by Cassandra Sebastian MD at 01/16/22 15:42 Sign Out Comment: EE. Awaiting placement. Mental health to reassess in AM. If other psych patient upstairs gets placed beforehand, consider [facility] admission Last updated by Wally Dove MD at 01/16/22 23:04 Sign Out Comment: Continues on EE and awaiting placement. Still rambling overnight and mildly agitated but overall no issues. Last updated by Romie Robles MD at 01/17/22 08:00 Sign Out Comment: no issues during the day Last updated by Hi Cardoza MD at 01/17/22 18:46 Sign Out Comment: 2nd cert performed. Glucose improved to mid 300's. Last updated by Greg Mart MD at 01/10/22 18:34 Sign Out Comment: No issues overnight. Remains on EE and still continuously talking to self in the room, periodically becoming somewhat agitated. Overall redirectable and cooperative. Last updated by Romie Robles MD at 01/18/22 07:32 Sign Out Comment: EE. Awaiting placement. Last updated by Dominic Sebastian MD at 01/18/22 16:00 Sign Out Comment: EE. Awaiting placement. Last updated by Ila Hernandez DO at 01/18/22 23:30 Sign Out Comment: Blood sugars better and patient taking his glucophage. Will need to continue to follow and dose with insulin as needed. He is pending placement after 2nd certification yesterday. Last updated by Romie Robles MD at 01/11/22 07:43 Sign Out Comment: EE, awaiting placement; Juni will reconsider if diabetes more controlled Last updated by Wally Dove MD at 01/11/22 17:05 Sign Out Comment: Patient pending psychiatric placement. Patient stable throughout the night. No interventions needed. Last updated by Goyo Harding DO at 01/11/22 23:08 Sign Out Comment: continues to be tangential and talking to self, little sleep, sugars in the 300 range; pending placement. Last updated by Romie Robles MD at 01/12/22 08:21 Sign Out Comment: Patient has continued to have intermittent aggressive outbursts that are not directed at any individuals but has been heard screaming killed their kids. He did agree to take metformin earlier today. I have ordered Risperdal in hopes that he would agree to take this as an antipsychotic. Patient continues to await inpatient psychiatric treatment placement Last updated by Dominic Sebastian MD at 01/12/22 19:52 Sign Out Comment: Continues to be agitated more so this morning than previous. Refusing oral medications but did take IM Zyprexa. Continues to wait for psychiatric bed availability. Last updated by Romie Robles MD at 01/13/22 07:21 Sign Out Comment: Follow-up on medicine consult. Patient awaiting psychiatric inpatient placement. Last updated by Dominic Sebastian MD at 01/13/22 15:41 Discharge Plan Disposition Patient Disposition: STILL A PATIENT Condition: Stable Discharge Details Clinical Impression: Schizoaffective disorder, Diabetes mellitus Primary Care Provider: Unknown,Unknown ED Provider: Dominic Sebastian Home Meds and New Rx's Prescriptions: No Action diphenhydramine HCl [Benadryl] 25 mg Capsule 25 mg PO HS PRN PRN
[2022-01-19] MEDS: Insulin Aspart 300 UNITS/3 ML PEN SC ×3 (08:12→18:01)
[2022-01-19] MEDS: Insulin Glargine 300 UNITS/3 ML PEN 30 UNITS SC (08:12)
[2022-01-19] MEDS: metFORMIN 500 MG TAB 1000 MG PO ×2 (08:12→17:03)
[2022-01-19 08:13] VITALS: BP 157/92; PULSE 117; RESP 19; TEMP 36.7; O2SAT 98
[2022-01-19] MEDS: Ketoconazole 2% CREAM 15 GM TUBE TP (08:53)
--- NOTE | 2022-01-19 09:41 | ED.PROG_ITS ---
Date of service: 01/19/22 Time of Service: 09:42 Medical Decision Making patient still here involuntary awaiting placement, intermittently agitated but able to be redirected verbally. Sign Out Sign Out Data: Sign Out Comment: Patient has BMP pending this morning and will need potentially further insulin dosing until blood sugar better controlled. He is on an EE pending second certification. Has been calm and cooperative overnight. Last updated by Romie Robles MD at 01/10/22 07:50 Sign Out Comment: EE. Continues to refuse meds and have outbursts at times but able to be redirected. Continue to monitor overnight while awaiting placement. Last updated by Ila Hernandez DO at 01/13/22 23:03 Sign Out Comment: EE. Awaiting placement. Poorly controlled DM (intermittently not taking his metformin), Given subq insulin this morning with breakfast Last updated by Wally Dove MD at 01/14/22 07:37 Sign Out Comment: ee for decompensated schizophrenia, on sliding scale insulin as he has repeatedly refused metformin Last updated by Hi Cardoza MD at 01/14/22 17:54 Sign Out Comment: No events overnight. Awaiting placement. Last updated by Ila Hernandez DO at 01/15/22 07:02 Sign Out Comment: no events during the day Last updated by Hi Cardoza MD at 01/15/22 18:36 Sign Out Comment: No events overnight. Awaiting placement. Last updated by Ila Hernandez DO at 01/16/22 01:15 Sign Out Comment: Patient signed out to Dr. Dove at time of shift change awaiting inpatient placement. Last updated by Cassandra Sebastian MD at 01/16/22 15:42 Sign Out Comment: EE. Awaiting placement. Mental health to reassess in AM. If other psych patient upstairs gets placed beforehand, consider [facility] admission Last updated by Wally Dove MD at 01/16/22 23:04 Sign Out Comment: Continues on EE and awaiting placement. Still rambling overnight and mildly agitated but overall no issues. Last updated by Romie Robles MD at 01/17/22 08:00 Sign Out Comment: no issues during the day Last updated by Hi Cardoza MD at 01/17/22 18:46 Sign Out Comment: 2nd cert performed. Glucose improved to mid 300's. Last updated by Greg Mart MD at 01/10/22 18:34 Sign Out Comment: No issues overnight. Remains on EE and still continuously talking to self in the room, periodically becoming somewhat agitated. Overall redirectable and cooperative. Last updated by Romie Robles MD at 01/18/22 07:32 Sign Out Comment: EE. Awaiting placement. Last updated by Dominic Sebastian MD at 01/18/22 16:00 Sign Out Comment: EE. Awaiting placement. Last updated by Ila Hernandez DO at 01/18/22 23:30 Sign Out Comment: Awaiting inpatient psychiatric treatment placement. EE. Last updated by Dominic Sebastian MD at 01/19/22 08:04 Sign Out Comment: Blood sugars better and patient taking his glucophage. Will need to continue to follow and dose with insulin as needed. He is pending placement after 2nd certification yesterday. Last updated by Romie Robles MD at 01/11/22 07:43 Sign Out Comment: EE, awaiting placement; [facility] will reconsider if diabetes more controlled Last updated by Wally Dove MD at 01/11/22 17:05 Sign Out Comment: Patient pending psychiatric placement. Patient stable throughout the night. No interventions needed. Last updated by Goyo Harding DO at 01/11/22 23:08 Sign Out Comment: continues to be tangential and talking to self, little sleep, sugars in the 300 range; pending placement. Last updated by Romie Robles MD at 01/12/22 08:21 Sign Out Comment: Patient has continued to have intermittent aggressive outbursts that are not directed at any individuals but has been heard screaming killed their kids. He did agree to take metformin earlier today. I have ordered Risperdal in hopes that he would agree to take this as an antipsychotic. Patient continues to await inpatient psychiatric treatment placement Last updated by Dominic Sebastian MD at 01/12/22 19:52 Sign Out Comment: Continues to be agitated more so this morning than previous. Refusing oral medications but did take IM Zyprexa. Continues to wait for psychiatric bed availability. Last updated by Romie Robles MD at 01/13/22 07:21 Sign Out Comment: Follow-up on medicine consult. Patient awaiting psychiatric inpatient placement. Last updated by Dominic Sebastian MD at 01/13/22 15:41 Discharge Plan Disposition Patient Disposition: STILL A PATIENT Condition: Stable Discharge Details Clinical Impression: Schizoaffective disorder, Diabetes mellitus Primary Care Provider: Unknown,Unknown ED Provider: Hi Cardoza [place] Meds and New Rx's Prescriptions: No Action diphenhydramine HCl [Benadryl] 25 mg Capsule 25 mg PO HS PRN PRN
--- NOTE | 2022-01-19 10:23 | CMSP_ITS ---
- If Service Date Differs Date of service: 01/19/22 Time of Service: 10:23 Care Management Safety Plan Status: Involuntary - Reason for Wait Reason for Wait: Inpatient Admission No changes are made to plan. Safety plan has been established to meet the needs of the patient, and consideration of the care team, to adhere to patient goals, identify restrictions based on behavioral status, address nutrition, and determine allowed personal belongings, tools for hygiene and personal care. Determine level of activity including ambulation, level of supervision, visitors, and determine privileges based on behaviors and level of engagement by pt. SAFETY PLAN: 1. Will remain on SI/HI precautions. In Paper Clothes 2. Will remain in room under direct supervision of one-on-one staff at all times provided by [employer], PAYROLL ASSISTANT, HEALTHCARE PROF traffic operator. 3. May have paper cups, plates, finger foods as well as a cardboard spoon to eat meals. 4. Follow [facility] Management of the Admitted Behavioral Health Patient policy. 5. Comfort bath system only. 6. No personal belongings 7. Visitors: None at this time. 8. Activities: Soft cart items and other activities at RN discretion. 9. Bathroom privileges with escort in the ED. 10. Phone: Limited to legal contacts via cordless hospital phone at RN discretion. 11. Due to INVOLUNTARY status, patient is being held at [facility] by the Department of Mental Health ([facility]). A Second Certification by Psychiatrist occurred on 01/10/22 and upheld the EE. Staff will provide de-escalation support (CPI) as needed. If patient wishes to leave [facility], staff will contact [facility] Crisis Screener ([phone]) and On-Call Chiropractic Doctor ([phone]) as soon as possible. In the event of elopement, notify [place] [employer] ([phone]). Patient is currently involuntarily at [facility]. [facility] Frontline [employer] Field Service Technician will continue seeking placement. Please contact the Underwriting Manager Chiropractic Doctor ([phone]) for any needed changes to Safety Plan. Safety plan has been provided to interdepartmental care team. Patient will be transported by [employer] at time of discharge.
--- NOTE | 2022-01-19 10:24 | CMPROGNOTE_ITS ---
- If Service Date Differs Date of service: 01/19/22 Time of Service: 10:24 Care Management Progress Note S/O: Yadiel remains hospitalized at [facility] and is awaiting an involuntary placement. Today is his day at [facility]. He remains cooperative and is willingly taking his diabetes medication. He is eating and sleeping well. He continues to experience auditory hallucinations and is frequently witnessed talking to himself. At times he becomes agitated but is generally redirectable. Yadiel was screened by [facility] crisis screener/[facility], today. Referrals have been sent to all psychiatric facilities in [place]. A: Yadiel is a 46 year old male awaiting an involuntary psychiatric placement. P: Referrals are faxed to [facility], [facility], [facility], and [facility] for review. [facility] declines due to patient's medical needs and [facility] also declines due to patient's acuity level. We await determination from [facility] and [facility]. Yadiel will remain on involuntary status at [facility] and will be reassessed twice daily by [facility] until a psychiatric bed can be secured for him. CM will continue to follow.
--- NOTE | 2022-01-19 10:24 | PDOC.ERCMPRO ---
- If Service Date Differs Date of service: 01/19/22 Time of Service: 10:24 Care Management Progress Note S/O: Yadiel remains hospitalized at [facility] and is awaiting an involuntary placement. Today is his day at [facility]. He remains cooperative and is willingly taking his diabetes medication. He is eating and sleeping well. He continues to experience auditory hallucinations and is frequently witnessed talking to himself. At times he becomes agitated but is generally redirectable. Yadiel was screened by [facility] crisis screener/QMHP, today. Referrals have been sent to all psychiatric facilities in [place]. A: Yadiel is a 46 year old male awaiting an involuntary psychiatric placement. P: [facility], [facility], [facility], and [facility] for review. [facility] declines due to patient's medical needs and [facility] also declines due to patient's acuity level. We await determination from [facility] and [facility]. Yadiel will remain on involuntary status at [facility] and will be reassessed twice daily by [facility] until a psychiatric bed can be secured for him. CM will continue to follow.
--- NOTE | 2022-01-19 10:56 | PDOC.MHPN2 ---
Date of service: 01/19/22 Time of Service: 10:14 Mental Health Emergency Note Release [facility] release signed:: Yes Reason for Visit Client is on MH warrant at [facility] ED. In the last 2 weeks has the pt presented for ES prior to today?: Unknown Client Information Client is: New Well Housed: No,status: Homeless Unstable housing Non Suicidal Self Injury Current: No History: No Safety Risk/Harm to Self or Others Current Ideation to Harm Self or Others: No Risk: Does risk to harm exist?: No Risk: N/A Duty to warn indicated: No Asssessment/Mental Status Appearance: Disheveled and Poor hygiene (Client reports he has not showered since being in the hosptial ) Attitude: Cooperative and Guarded Behavior: Unremarkable Speech: Pressured and Other (stuttering at times in conversation ) Affect: Flat and Cogruent with mood Mood: Stressed and Other (upset due to back and shoulder pain) Thought process: Blocking, Flight of ideas and Tangential Hallucinations: yes, (Client reports voices are talking to him) Auditory Delusions: yes, Bizarre and Thought broadcasting Attention: Wandering and Poor concentration Perception: Not impaired Orientation: Fully orientated Memory: Intact Insight: Poor Judgement: Poor Neurovegetative Symptoms Sleep: Decrease (Client reports trouble sleeping due to back and shoulder pain) Appetitie: No change Interests: No change Energy: No change Libido: Not applicable Substance Use: Do you use nicotine?: No Have you used substances in the last 7 days?: No Additional Issues: Assaultive/Threatening Behavior: No Medical Concerns: Yes Client engaged in active self harm w/weapon: No Threatening to run away: No Child reported abuse/neglect: No Voluntarily presenting for services: No Domestic violence is a concern: No Extreme Psychosis or extreme behavior is present: Yes Impression Client is currently being held on involuntary hold at [facility]. Prior to assesing this client, this scenario writer spoke to and gained collateral information from client's attending MD Hi Cardoza. Nani reports client remains the same. This scenario writer assessed client via zoom. Client presented with pressured speech and stuttering his words at times. Client reports he is not currently endorsing SI/HI/NSSI. Client denies intent/plan. Client is presenting with poor insight/judgment. Client stopped responding to this clinician's assessment at times. Client presented staring at the wall and started responding to internal stimuli. At times during the assessment, client would be in mid thought, and stop speaking to this scenario writer. When this scenario writer asked client to finish his sentence, client responded to this scenario writer with context that irrelevant to the topic of discussion. For example, this scenario writer asked client if he was having thoughts of HI, client responded to this scenario writer's question by stating, I got meatloaf a few days ago but it was dry and didn't taste good. This client needed to be redirected multiple times. Client reports decrease in his sleeping habits; eg. client reports only getting a few hours of sleep due to his shoulder/back pain. Client reports no change to his appetite. When this scenario writer screened client he was eating breakfast. Client reports that he has been compliant in taking his prescribed medications metformin and insulin. After screening client this scenario writer spoke to client's attending nurse. Collateral information was gathered. Attending nurse reports per ACCOUNTING MANAGER ASSISTANT CONTROLLER report, client presented in room earlier this morning pacing. Client was reported to be loud and aggressive yelling to himself about politics. Attending nurse reports client's insulin type and doseage was changed yesterday 01/18. Attending nurse reports client's sugar levels were trending downwards on 01/18, however this am are back in the 300's. Attending nurse reports yesterday on 01/18 client got ahold of a phone and proceeded to contact someone and made a report on a test examiner. Plan/Disposition Recommended Disposition: Hospitalization facilities contacted. Plan: Hospitalization facilities contacted. This scenario writer was in contact with Frederick Cobos at [facility] this am to discuss next steps. Client is to await in ED until bed placement can be secured. Person reported agreement to plan: Yes Facilities contacted if Applicable [facility] Not accepted, Medical reasons [facility] Not accepted, No bed available [facility] Not accepted, No bed available and Acuity, [facility] Not accepted, No bed available [facility] Not accepted, Medical reasons and [facility] Reports/communication Outcome discussed with: ED/Personnel (Dr. Cardoza and attending Nurse) and Other (Frederick Cobos [facility] Poker Prop Player)
--- NOTE | 2022-01-19 17:11 | NUR.NOTE ---
Nursing Note: Sigrid Rick, Risk Management; called stating that Farm Operator called stating patient told them that he was not allowed a shower or to be admitted upstairs. I stated that he needs to be 48hrs without a code valadez before he can be admitted and for a shower we do not have one. He would need to go to M/S where there is a patient shower. Due to his behavior he is a risk and at this time cannot go to M'/S for a shower. I told Dr Cardoza about this conversation and he is aware.
--- NOTE | 2022-01-19 17:23 | NUR.NOTE ---
spoke with Sigrid Rick from risk management about patient's rights. forestry aid technician reporting patient 's being denied his rights for a shower. Sirgid was advised that patient's outburst and violent behavior needs not to happened for 48 hours before he can go to second floor for a shower.Second floor is the only area with patient showers. Patient has been told numerous times his behavior needs improve before he can go have a shower. Sigrid advised that patients bathroom no longer has a shower options due to a safety risk per [facility], for mental health patients.Staff has been bring a basin with water, soap and towels. PAtient has been kicking basin on the floor.
[2022-01-19] MEDS: Insulin Glargine 300 UNITS/3 ML PEN 15 UNITS SC (22:18)
[2022-01-20] MEDS: metFORMIN 500 MG TAB 1000 MG PO ×2 (08:01→19:30)
[2022-01-20] MEDS: Insulin Glargine 300 UNITS/3 ML PEN 30 UNITS SC (08:10)
[2022-01-20] MEDS: Insulin Aspart 300 UNITS/3 ML PEN SC ×6 (08:14→23:13)
--- NOTE | 2022-01-20 09:05 | CMSP_ITS ---
- If Service Date Differs Date of service: 01/20/22 Time of Service: 09:05 Care Management Safety Plan Status: Involuntary - Reason for Wait Reason for Wait: Inpatient Admission Safety plan has been established to meet the needs of the patient, and consideration of the care team, to adhere to patient goals, identify restrictions based on behavioral status, address nutrition, and determine allowed personal belongings, tools for hygiene and personal care. Determine level of activity including ambulation, level of supervision, visitors, and determine privileges based on behaviors and level of engagement by pt. SAFETY PLAN: 1. Will remain on SI/HI precautions. In Paper Clothes 2. Will remain in room under direct supervision of one-on-one staff at all times provided by CPSO, RESEARCH BIOSTATISTICIAN, MAILER APPRENTICE masonry supervisor. 3. May have paper cups, plates, finger foods as well as a cardboard spoon to eat meals. 4. Follow [facility] Management of the Admitted Behavioral Health Patient policy. 5. Comfort bath system only. 6. No personal belongings 7. Visitors: None at this time. 8. Activities: Soft cart items and other activities at RN discretion. 9. Bathroom privileges with escort in the ED. 10. Phone: Limited to legal contacts [facility] phone at RN discretion. 11. Due to INVOLUNTARY status, patient is being held at [facility] by the Department of Mental Health (DM). A Second Certification by Psychiatrist occurred on 01/10/22 and upheld the EE. Staff will provide de-escalation support (CPI) as needed. If patient wishes to leave [facility], staff will contact [facility] Crisis Screener ([phone]) and On-Call Layer Off ([phone]) as soon as possible. In the event of elopement, notify [place] [employer] ([phone]). Patient is currently involuntarily at [facility]. [facility] Frontline Cloth Napping Supervisor will co ntinue seeking placement. Please contact the Fine Grade Operator Layer Off ([phone]) for any needed changes to Safety Plan. Safety plan has been provided to interdepartmental care team. Patient will be transported by [facility] at time of discharge.
--- NOTE | 2022-01-20 09:05 | PDOC.CMSAFED ---
- If Service Date Differs Date of service: 01/20/22 Time of Service: 09:05 Care Management Safety Plan Status: Involuntary - Reason for Wait Reason for Wait: Inpatient Admission Safety plan has been established to meet the needs of the patient, and consideration of the care team, to adhere to patient goals, identify restrictions based on behavioral status, address nutrition, and determine allowed personal belongings, tools for hygiene and personal care. Determine level of activity including ambulation, level of supervision, visitors, and determine privileges based on behaviors and level of engagement by pt. SAFETY PLAN: 1. Will remain on SI/HI precautions. In Paper Clothes 2. Will remain in room under direct supervision of one-on-one staff at all times provided by CPSO, GIN INSPECTOR, PHYSICAL THER senior applications developer. 3. May have paper cups, plates, finger foods as well as a cardboard spoon to eat meals. 4. Follow [facility] Management of the Admitted Behavioral Health Patient policy. 5. Comfort bath system only. 6. No personal belongings 7. Visitors: None at this time. 8. Activities: Soft cart items and other activities at RN discretion. 9. Bathroom privileges with escort in the ED. 10. Phone: Limited to legal contacts [facility] phone at RN discretion. 11. Due to INVOLUNTARY status, patient is being held at [facility] by the Department of Mental Health ([facility]). A Second Certification by Psychiatrist occurred on 01/10/22 and upheld the EE. Staff will provide de-escalation support (CPI) as needed. If patient wishes to leave [facility], staff will contact [facility] Crisis Screener ([phone]) and On-Call Cable Television Technician ([phone]) as soon as possible. In the event of elopement, notify [place] [employer] ([phone]). Patient is currently involuntarily at [facility]. [facility] Frontline Electrician Third will continue seeking placement. Please contact the Production Control Analyst Cable Television Technician ([phone]) for any needed changes to Safety Plan. Safety plan has been provided to interdepartmental care team. Patient will be transported by [facility] at time of discharge.
--- NOTE | 2022-01-20 09:06 | CMPROGNOTE_ITS ---
- If Service Date Differs Date of service: 01/20/22 Time of Service: 09:06 Care Management Progress Note S/O: Yadiel remains hospitalized at [facility] and is awaiting an involuntary placement. Today is his day at [facility]. Morteza Lebron from [facility], and RAFIQ from [facility] are involved and are closely communicating with [facility] and have faxed all clinicals to [facility] for review. A: Yadiel is a 46 year old male awaiting an involuntary psychiatric placement. P: Yadiel will remain on involuntary status at [facility] and will be reassessed twice daily by [facility] until a psychiatric bed can be secured for him. [facility], [facility], [facility], and [facility] for review. Please see referral update as listed below. CM will continue to follow. 01/20/22 [facility]: [facility] faxed clinicals for review. [facility]: Not accepted, Medical reasons [facility]: Not accepted, No bed available and [facility], [facility] Not accepted, No bed available [facility]: Not accepted, Medical reasons and Ac[facility]
--- NOTE | 2022-01-20 09:06 | PDOC.ERCMPRO ---
- If Service Date Differs Date of service: 01/20/22 Time of Service: 09:06 Care Management Progress Note S/O: Yadiel remains hospitalized at [facility] and is awaiting an involuntary placement. Today is his day at [facility]. Morteza Lebron from [facility], and RAFIQ from [facility] are involved and are closely communicating with [facility] and have faxed all clinicals to [facility] for review. A: Yadiel is a 46 year old male awaiting an involuntary psychiatric placement. P: Yadiel will remain on involuntary status at [facility] and will be reassessed twice daily by [facility] until a psychiatric bed can be secured for him. [facility], [facility], [facility], and [facility] for review. Please see referral update as listed below. CM will continue to follow. 01/20/22 [facility]: [facility] faxed clinicals for review. [facility]: Not accepted, Medical reasons [facility]: Not accepted, No bed available and Acuity, [facility] Not accepted, No bed available [facility]: Not accepted, Medical reasons and Acuity
[2022-01-20] MEDS: Empaglifozin 10 MG TAB PO (10:09)
--- NOTE | 2022-01-20 10:09 | NUR.NOTE ---
Nursing Note: Patient was cooperative taking his medications other than Risperdone,patient always refuses, when requesting morning lab draw patient became very upset with verbal outbursts and refused blood draw. ARUNA
--- NOTE | 2022-01-20 11:02 | ED.PROG_ITS ---
Date of service: 01/20/22 Time of Service: 11:02 Medical Decision Making pt still pending placement and still having diabetic medications adjusted, added jardiance, still not able to carry on sensical conversation, no physical complaints currently. Sign Out Sign Out Data: Sign Out Comment: Patient has BMP pending this morning and will need potentially further insulin dosing until blood sugar better controlled. He is on an EE pending second certification. Has been calm and cooperative overnight. Last updated by Romie Robles MD at 01/10/22 07:50 Sign Out Comment: EE. Continues to refuse meds and have outbursts at times but able to be redirected. Continue to monitor overnight while awaiting placement. Last updated by Ila Hernandez DO at 01/13/22 23:03 Sign Out Comment: EE. Awaiting placement. Poorly controlled DM (intermittently not taking his metformin), Given subq insulin this morning with breakfast Last updated by Wally Dove MD at 01/14/22 07:37 Sign Out Comment: ee for decompensated schizophrenia, on sliding scale insulin as he has repeatedly refused metformin Last updated by Hi Cardoza MD at 01/14/22 17:54 Sign Out Comment: No events overnight. Awaiting placement. Last updated by Ila Hernandez DO at 01/15/22 07:02 Sign Out Comment: no events during the day Last updated by Hi Cardoza MD at 01/15/22 18:36 Sign Out Comment: No events overnight. Awaiting placement. Last updated by Ila Hernandez DO at 01/16/22 01:15 Sign Out Comment: Patient signed out to Dr. Dove at time of shift change awaiting inpatient placement. Last updated by Cassandra Sebastian MD at 01/16/22 15:42 Sign Out Comment: EE. Awaiting placement. Mental health to reassess in AM. If other psych patient upstairs gets placed beforehand, consider [facility] admission Last updated by Wally Dove MD at 01/16/22 23:04 Sign Out Comment: Continues on EE and awaiting placement. Still rambling overnight and mildly agitated but overall no issues. Last updated by Romie Robles MD at 01/17/22 08:00 Sign Out Comment: no issues during the day Last updated by Hi Cardoza MD at 01/17/22 18:46 Sign Out Comment: 2nd cert performed. Glucose improved to mid 300's. Last updated by Greg Mart MD at 01/10/22 18:34 Sign Out Comment: No issues overnight. Remains on EE and still continuously talking to self in the room, periodically becoming somewhat agitated. Overall redirectable and cooperative. Last updated by Romie Robles MD at 01/18/22 07:32 Sign Out Comment: EE. Awaiting placement. Last updated by Dominic Sebastian MD at 01/18/22 16:00 Sign Out Comment: EE. Awaiting placement. Last updated by Ila Hernandez DO at 01/18/22 23:30 Sign Out Comment: Awaiting inpatient psychiatric treatment placement. EE. Last updated by Dominic Sebastian MD at 01/19/22 08:04 Sign Out Comment: still pending placement, no issues during the day Last updated by Hi Cardoza MD at 01/19/22 17:04 Sign Out Comment: Patient stable after my shift. Pending placement. Last updated by Goyo Harding DO at 01/20/22 00:30 Sign Out Comment: No issues overnight, remains stable and unchanged. Last updated by Romie Robles MD at 01/20/22 07:26 Sign Out Comment: Blood sugars better and patient taking his glucophage. Will need to continue to follow and dose with insulin as needed. He is pending placement after 2nd certification yesterday. Last updated by Romie Robles MD at 01/11/22 07:43 Sign Out Comment: EE, awaiting placement; Juni will reconsider if diabetes more controlled Last updated by Wally Dove MD at 01/11/22 17:05 Sign Out Comment: Patient pending psychiatric placement. Patient stable throughout the night. No interventions needed. Last updated by Goyo Hrading DO at 01/11/22 23:08 Sign Out Comment: continues to be tangential and talking to self, little sleep, sugars in the 300 range; pending placement. Last updated by Romie Robles MD at 01/12/22 08:21 Sign Out Comment: Patient has continued to have intermittent aggressive outbursts that are not directed at any individuals but has been heard screaming killed their kids. He did agree to take metformin earlier today. I have ordered Risperdal in hopes that he would agree to take this as an antipsychotic. Patient continues to await inpatient psychiatric treatment placement Last updated by Dominic Sebastian MD at 01/12/22 19:52 Sign Out Comment: Continues to be agitated more so this morning than previous. Refusing oral medications but did take IM Zyprexa. Continues to wait for psychiatric bed availability. Last updated by Romie Robles MD at 01/13/22 07:21 Sign Out Comment: Follow-up on medicine consult. Patient awaiting psychiatric inpatient placement. Last updated by Dominic Sebastian MD at 01/13/22 15:41 Discharge Plan Disposition Patient Disposition: STILL A PATIENT Condition: Stable Discharge Details Clinical Impression: Schizoaffective disorder, Diabetes mellitus Primary Care Provider: Unknown,Unknown ED Provider: Hi Cardoza Home Meds and New Rx's Prescriptions: No Action diphenhydramine HCl [Benadryl] 25 mg Capsule 25 mg PO HS PRN PRN
--- NOTE | 2022-01-20 13:47 | NUR.NOTE ---
Nursing Note:Patient is unhappy about the size of his lunch, stated he wants more but is unwilling to receive more insulin to compensate for the extra carbs, patient also continues to refuse his risperidone and continues to refuse routine lab draws. ARUNA
--- NOTE | 2022-01-20 18:21 | NUR.NOTE ---
Nursing Note:Pt continued to increase in anger and agitation over his dinner, continued refusing meds and routine lab draws, techniques were used to try to redirect de-escalate and re-orient the patient without success, pt continued to escalate until a code farfan was called, staff and security gathered with the patient, medication were considered but patient became cooperative and code valadez was canceled. ARUNA
[2022-01-20] MEDS: Insulin Glargine 300 UNITS/3 ML PEN 25 UNITS SC (23:13)
--- NOTE | 2022-01-20 23:46 | W.EDPROG ---
Date of service: 01/20/22 Time of Service: 23:00 Medical Decision Making 2300 -- Please see previous provider's notes for initial presentation, exam, plan and course. Awaiting placement. 0800 -- No events overnight. Case endorsed to oncoming provider to continue to monitor while awaiting placement. Sign Out Sign Out Data: Sign Out Comment: Patient has BMP pending this morning and will need potentially further insulin dosing until blood sugar better controlled. He is on an EE pending second certification. Has been calm and cooperative overnight. Last updated by Romie Robles MD at 01/10/22 07:50 Sign Out Comment: EE. Continues to refuse meds and have outbursts at times but able to be redirected. Continue to monitor overnight while awaiting placement. Last updated by Ila Hernandez DO at 01/13/22 23:03 Sign Out Comment: EE. Awaiting placement. Poorly controlled DM (intermittently not taking his metformin), Given subq insulin this morning with breakfast Last updated by Wally Dove MD at 01/14/22 07:37 Sign Out Comment: ee for decompensated schizophrenia, on sliding scale insulin as he has repeatedly refused metformin Last updated by Hi Cardoza MD at 01/14/22 17:54 Sign Out Comment: No events overnight. Awaiting placement. Last updated by Ila Hernandez DO at 01/15/22 07:02 Sign Out Comment: no events during the day Last updated by Hi Cardoza MD at 01/15/22 18:36 Sign Out Comment: No events overnight. Awaiting placement. Last updated by Ila Hernandez DO at 01/16/22 01:15 Sign Out Comment: Patient signed out to Dr. Dove at time of shift change awaiting inpatient placement. Last updated by Cassandra Sebastian MD at 01/16/22 15:42 Sign Out Comment: EE. Awaiting placement. Mental health to reassess in AM. If other psych patient upstairs gets placed beforehand, consider [facility] admission Last updated by Wally Dove MD at 01/16/22 23:04 Sign Out Comment: Continues on EE and awaiting placement. Still rambling overnight and mildly agitated but overall no issues. Last updated by Romie Robles MD at 01/17/22 08:00 Sign Out Comment: no issues during the day Last updated by Hi Cardoza MD at 01/17/22 18:46 Sign Out Comment: 2nd cert performed. Glucose improved to mid 300's. Last updated by Greg Mart MD at 01/10/22 18:34 Sign Out Comment: No issues overnight. Remains on EE and still continuously talking to self in the room, periodically becoming somewhat agitated. Overall redirectable and cooperative. Last updated by Romie Robles MD at 01/18/22 07:32 Sign Out Comment: EE. Awaiting placement. Last updated by Dominic Sebastian MD at 01/18/22 16:00 Sign Out Comment: EE. Awaiting placement. Last updated by Ila Hernandez DO at 01/18/22 23:30 Sign Out Comment: Awaiting inpatient psychiatric treatment placement. EE. Last updated by Dominic Sebastian MD at 01/19/22 08:04 Sign Out Comment: still pending placement, no issues during the day Last updated by Hi Cardoza MD at 01/19/22 17:04 Sign Out Comment: Patient stable after my shift. Pending placement. Last updated by Goyo Harding DO at 01/20/22 00:30 Sign Out Comment: No issues overnight, remains stable and unchanged. Last updated by Romie Robles MD at 01/20/22 07:26 Sign Out Comment: no issues during the day Last updated by Hi Cardoza MD at 01/20/22 17:11 Sign Out Comment: code farfan this evening; calmed after we were going to give him meds; awaiting placement Last updated by Wally Dove MD at 01/20/22 23:15 Sign Out Comment: No events overnight. Awaiting placement. Last updated by Ila Hernandez DO at 01/21/22 03:43 Sign Out Comment: Blood sugars better and patient taking his glucophage. Will need to continue to follow and dose with insulin as needed. He is pending placement after 2nd certification yesterday. Last updated by Romie Robles MD at 01/11/22 07:43 Sign Out Comment: EE, awaiting placement; Juni will reconsider if diabetes more controlled Last updated by Wally Dove MD at 01/11/22 17:05 Sign Out Comment: Patient pending psychiatric placement. Patient stable throughout the night. No interventions needed. Last updated by Goyo Harding DO at 01/11/22 23:08 Sign Out Comment: continues to be tangential and talking to self, little sleep, sugars in the 300 range; pending placement. Last updated by Romie Robles MD at 01/12/22 08:21 Sign Out Comment: Patient has continued to have intermittent aggressive outbursts that are not directed at any individuals but has been heard screaming killed their kids. He did agree to take metformin earlier today. I have ordered Risperdal in hopes that he would agree to take this as an antipsychotic. Patient continues to await inpatient psychiatric treatment placement Last updated by Dominic Sebastian MD at 01/12/22 19:52 Sign Out Comment: Continues to be agitated more so this morning than previous. Refusing oral medications but did take IM Zyprexa. Continues to wait for psychiatric bed availability. Last updated by Romie Robles MD at 01/13/22 07:21 Sign Out Comment: Follow-up on medicine consult. Patient awaiting psychiatric inpatient placement. Last updated by Dominic Sebastian MD at 01/13/22 15:41 Discharge Plan Disposition Patient Disposition: STILL A PATIENT Condition: Stable Discharge Details Clinical Impression: Schizoaffective disorder, Diabetes mellitus Primary Care Provider: Unknown,Unknown ED Provider: Dominic Sebastian Home Meds and New Rx's Prescriptions: No Action diphenhydramine HCl [Benadryl] 25 mg Capsule 25 mg PO HS PRN PRN
[2022-01-21 01:57] LABS: Bilirubin Negative (Negative); Blood Trace-intact (Negative); Clarity Clear (Clear); Glucose >=1000 mg/dL (Negative); Ketones Negative (Negative); Leukocyte Esterase Negative (Negative); Nitrite Negative (Negative); Urobilinogen 0.2 EU/dL (Up TO 0.2); pH 5.5 (5-8)
[2022-01-21 02:03] LABS: Bacteria Few HPF (Negative); Epithelial Cells Few HPF (Negative)
[2022-01-21 02:04] LABS: C & S Indicated? No; Casts 0-2 Coarse Granular LPF (Negative); Crystals Negative HPF (Negative); Mucus Negative (Negative)
[2022-01-21] MEDS: Insulin Aspart 300 UNITS/3 ML PEN SC ×7 (08:00→20:29)
[2022-01-21] MEDS: Empaglifozin 10 MG TAB PO (08:00)
[2022-01-21] MEDS: Insulin Glargine 300 UNITS/3 ML PEN 40 UNITS SC (08:01)
[2022-01-21] MEDS: metFORMIN 500 MG TAB 1000 MG PO ×2 (08:01→20:30)
--- NOTE | 2022-01-21 09:35 | NUR.NOTE ---
Nursing Note: Pt is uncooperative this am. He had an aggressive outburst and entered the nurse's station screaming for his backpack. Pt was escorted back to his room and security presented, yuliana farfan called. Dr. Sebastian involved. No medication ordered at this time. Pt calmed down with security presence.
--- NOTE | 2022-01-21 12:27 | MHPN_ITS ---
Date of service: 01/21/22 Time of Service: 12:27 Mental Health Emergency Note Release [facility] release signed:: Yes Reason for Visit Client is being held on a MH Warrant. This is his daily assessment. His screening tools have not been completed as he is experiencing a thought disturbance so cannot focus to do them. In the last 2 weeks has the pt presented for ES prior to today?: Yes, presented at [facility] ED Client Information Client is: New Well Housed: No,status: Homeless Unstable housing Non Suicidal Self Injury Current: No History: No Safety Risk/Harm to Self or Others Current Ideation to Harm Self or Others: No Risk: Does risk to harm exist?: yes. Access to means: No. Risk: High Risk Duty to warn indicated: No Asssessment/Mental Status Appearance: Disheveled Attitude: Demanding and Hostile Behavior: Agitated Speech: Loud Affect: Cogruent with mood Mood: Stressed, Anxious and Irritable Thought process: Racing, Loose associations, Circumstational and Tangential Hallucinations: No Delusions: No Attention: Poor concentration Perception: Not impaired Orientation: Disoriented in (previous conversations, could be manipulative. ) Situation Memory: Intact Insight: Poor Judgement: Poor Neurovegetative Symptoms Sleep: No change Appetitie: No change Interests: No change Energy: No change Libido: Not applicable Substance Use: Do you use nicotine?: No Additional Issues: Assaultive/Threatening Behavior: Yes Medical Concerns: No Client engaged in active self harm w/weapon: No Threatening to run away: No Child reported abuse/neglect: No Voluntarily presenting for services: No Domestic violence is a concern: No Extreme Psychosis or extreme behavior is present: Yes Impression Client is assessed in person today. He is observed laying down in his bed with no shirt. THe head of the bed is raised and he is scotched down low on the bed with complaints of shoulder and back pain. He is watching a movie on TV. Client has a hard time focusing often asking this clinician to repeat her questions. He speaks rapidly and not focused on any questions just what he has heard and wants form previous conversations and is agitated it is taking so long for him to be moved form his room. He inquires about being moved upstairs, to another hospital specifying [facility], and back pack. He penetrates on his backpack stating he has never not been allowed to have it and that his backpack offers stability for his back and sholder pains. Client continues to show that he is not ready to return to the community as his presentation puts him at a great risk of harm to self by others. Dr. Dominic Sebastian reported that there was a code valadez called on the client earlier today as he came out of his room agitated and yelling. Dr. Sebastian also reported that he client was easily enough redirectable back to his room and no other issues since. Dr. Sebastian reported that the client is taking all of his medic ations as prescribed without incident. Resources Reosurces reviewed and given:: [facility] Plan/Disposition Recommended Disposition: Hospitalization facilities contacted. Plan: Client will remain at [facility] pending transfer to a psychiatric hospital or until h is symptoms no longer place him at risk and he is able to safely safety plan back to the community. He will be assessed daily by [facility] ES. Person reported agreement to plan: No Facilities contacted if Applicable [facility] Not accepted, Other (Admissions are only reviewed Mon-Fri 8am to 5pm. ) Reports/communication Outcome discussed with: ED/Personnel
--- NOTE | 2022-01-21 17:00 | CMSP_ITS ---
- If Service Date Differs Date of service: 01/21/22 Time of Service: 17:00 Care Management Safety Plan Status: Involuntary - Reason for Wait Reason for Wait: Inpatient Admission Safety plan has been established to meet the needs of the patient, and consideration of the care team, to adhere to patient goals, identify restrictions based on behavioral status, address nutrition, and determine allowed personal belongings, tools for hygiene and personal care. Determine level of activity including ambulation, level of supervision, visitors, and determine privileges based on behaviors and level of engagement by pt. SAFETY PLAN: 1. Will remain on SI/HI precautions. In Paper Clothes 2. Will remain in room under direct supervision of one-on-one staff at all times provided by [employer], JACK SPOOLER TENDER, MANAGER STUDIO supervisor cap and hat production. 3. May have paper cups, plates, finger foods as well as a cardboard spoon to eat meals. 4. Follow [facility] Management of the Admitted Behavioral Health Patient policy. 5. Comfort bath system only. 6. No personal belongings 7. Visitors: None at this time. 8. Activities: Soft cart items and other activities at RN discretion. 9. Bathroom privileges with escort in the ED. 10. Phone: Limited to legal contacts via [facility] phone at RN discretion. 11. Due to INVOLUNTARY status, patient is being held at [facility] by the Department of Mental Health (DM). A Second Certification by Psychiatrist occurred on 01/10/22 and upheld the EE. Staff will provide de-escalation support (CPI) as needed. If patient wishes to leave [facility], staff will contact [facility] Crisis Screener ([phone]) and On-Call Assistant Product Manager ([phone]) as soon as possible. In the event of elopement, notify [place] [employer] ([phone]). Patient is currently involuntarily at [facility]. [facility] Frontline Learning Disabilities Specialist will co ntinue seeking placement. Please contact the Tower Air Traffic Control Specialist Assistant Product Manager ([phone]) for any needed changes to Safety Plan. Safety plan has been provided to interdepartmental care team. Patient will be transported by [employer] at time of discharge.
--- NOTE | 2022-01-21 17:00 | PDOC.CMSAFED ---
- If Service Date Differs Date of service: 01/21/22 Time of Service: 17:00 Care Management Safety Plan Status: Involuntary - Reason for Wait Reason for Wait: Inpatient Admission Safety plan has been established to meet the needs of the patient, and consideration of the care team, to adhere to patient goals, identify restrictions based on behavioral status, address nutrition, and determine allowed personal belongings, tools for hygiene and personal care. Determine level of activity including ambulation, level of supervision, visitors, and determine privileges based on behaviors and level of engagement by pt. SAFETY PLAN: 1. Will remain on SI/HI precautions. In Paper Clothes 2. Will remain in room under direct supervision of one-on-one staff at all times provided by [employer], INTERNAL GRINDER TENDER, LIQUID CENTER ASSEMBLER recyclable materials collector. 3. May have paper cups, plates, finger foods as well as a cardboard spoon to eat meals. 4. Follow [facility] Management of the Admitted Behavioral Health Patient policy. 5. Comfort bath system only. 6. No personal belongings 7. Visitors: None at this time. 8. Activities: Soft cart items and other activities at RN discretion. 9. Bathroom privileges with escort in the ED. 10. Phone: Limited to legal contacts via [facility] phone at RN discretion. 11. Due to INVOLUNTARY status, patient is being held at [facility] by the Department of Mental Health ([facility]). A Second Certification by Psychiatrist occurred on 01/10/22 and upheld the EE. Staff will provide de-escalation support (CPI) as needed. If patient wishes to leave [facility], staff will contact [facility] Crisis Screener ([phone]) and On-Call Infantryman ([phone]) as soon as possible. In the event of elopement, notify [place] [employer] ([phone]). Patient is currently involuntarily at [facility]. [facility] Frontline Automotive Salesperson will continue seeking placement. Please contact the General Production Manager Infantryman ([phone]) for any needed changes to Safety Plan. Safety plan has been provided to interdepartmental care team. Patient will be transported by [facility] at time of discharge.
--- NOTE | 2022-01-21 17:02 | CMPROGNOTE_ITS ---
- If Service Date Differs Date of service: 01/21/22 Time of Service: 17:02 Care Management Progress Note S/O: Yadiel remains hospitalized at [facility] and is awaiting an involuntary placement. This morning, Yadiel walked out of his room and into a staff area. He was agitated and screaming at ED providers and nurses, necessitating another Code Ordoñez. After a few minutes, staff successfully redirected him into his room without further incident. Shortly thereafter, Yadiel was witn essed sitting on the side of the bed in his room, yelling nonsensical comments about Dougie Villarreal. A: Yadiel is a 46 year old male awaiting an involuntary psychiatric placement. P: Yadiel will remain on involuntary status at [facility] and will be reassessed twice daily by [facility] until a psychiatric bed can be secured for him. Referrals are faxed to [facility], [facility], [facility], [facility], and [facility] [place] for review. Please see referral update as listed below. CM will continue to follow. 01/21/22 [facility]: Referral under review. [facility]: Not accepted, Medical reasons. [place]: Not accepted, No bed available and Acuity. [facility] Not accepted, No bed available. [facility]: Not accepted, Medical reasons and Acuity. [facility]: Referrals only reviewed Mon - Fri 8am to 5pm. - Status Status: Involuntary - Reason for Wait Reason for Wait: Inpatient Admission
--- NOTE | 2022-01-21 17:02 | PDOC.ERCMPRO ---
- If Service Date Differs Date of service: 01/21/22 Time of Service: 17:02 Care Management Progress Note S/O: Yadiel remains hospitalized at [facility] and is awaiting an involuntary placement. This morning, Yadiel walked out of his room and into a staff area. He was agitated and screaming at ED providers and nurses, necessitating another Code Ordoñez. After a few minutes, staff successfully redirected him into his room without further incident. Shortly thereafter, Yadiel was witnessed sitting on the side of the bed in his room, yelling nonsensical comments about Dougie Villarreal. A: Yadiel is a 46 year old male awaiting an involuntary psychiatric placement. P: Yadiel will remain on involuntary status at [facility] and will be reassessed twice daily by [facility] until a psychiatric bed can be secured for him. Referrals are faxed to [facility], [facility], [facility], [facility], and [facility] for review. Please see referral update as listed below. CM will continue to follow. 01/21/22 [facility]: Referral under review. [facility]: Not accepted, Medical reasons. [place]: Not accepted, No bed available and Acuity. [facility] Not accepted, No bed available. [facility]: Not accepted, Medical reasons and Acuity. [facility]: Referrals only reviewed Mon - Fri 8am to 5pm. - Status Status: Involuntary - Reason for Wait Reason for Wait: Inpatient Admission
--- NOTE | 2022-01-21 19:44 | W.EDPROG ---
Date of service: 01/21/22 Time of Service: 19:44 Medical Decision Making Patient signed out by Dr. Hernandez. Please see her documentation. Plan at signout was to await psychiatric treatment placement. I spoke with Nika Mcduffie [facility], she notes no bed availability in the immediate future. Patient apparently has been declined from multiple facilities including [place] and [place] citing patient's inability to pay for hospitalization as result of his insurance. Patient did come out into the documentation area upset that we would not allow him to have his backpack for treatment of his back pain. I explained that he could not have his backpack but that we would be more than happy to provide him Tylenol and a lidocaine patch which he refused. Patient was able to be de-escalated and returned to his room. Sign Out Sign Out Data: Sign Out Comment: Patient has BMP pending this morning and will need potentially further insulin dosing until blood sugar better controlled. He is on an EE pending second certification. Has been calm and cooperative overnight. Last updated by Romie Robles MD at 01/10/22 07:50 Sign Out Comment: EE. Continues to refuse meds and have outbursts at times but able to be redirected. Continue to monitor overnight while awaiting placement. Last updated by Ila Hernandez DO at 01/13/22 23:03 Sign Out Comment: EE. Awaiting placement. Poorly controlled DM (intermittently not taking his metformin), Given subq insulin this morning with breakfast Last updated by Wally Dove MD at 01/14/22 07:37 Sign Out Comment: ee for decompensated schizophrenia, on sliding scale insulin as he has repeatedly refused metformin Last updated by Hi Cardoza MD at 01/14/22 17:54 Sign Out Comment: No events overnight. Awaiting placement. Last updated by Ila Hernandez DO at 01/15/22 07:02 Sign Out Comment: no events during the day Last updated by Hi Cardoza MD at 01/15/22 18:36 Sign Out Comment: No events overnight. Awaiting placement. Last updated by Ila Hernandez DO at 01/16/22 01:15 Sign Out Comment: Patient signed out to Dr. Dove at time of shift change awaiting inpatient placement. Last updated by Cassandra Sebastian MD at 01/16/22 15:42 Sign Out Comment: EE. Awaiting placement. Mental health to reassess in AM. If other psych patient upstairs gets placed beforehand, consider [facility] admission Last updated by Wally Dove MD at 01/16/22 23:04 Sign Out Comment: Continues on EE and awaiting placement. Still rambling overnight and mildly agitated but overall no issues. Last updated by Romie Robles MD at 01/17/22 08:00 Sign Out Comment: no issues during the day Last updated by Hi Cardoza MD at 01/17/22 18:46 Sign Out Comment: 2nd cert performed. Glucose improved to mid 300's. Last updated by Greg Mart MD at 01/10/22 18:34 Sign Out Comment: No issues overnight. Remains on EE and still continuously talking to self in the room, periodically becoming somewhat agitated. Overall redirectable and cooperative. Last updated by Romie Robles MD at 01/18/22 07:32 Sign Out Comment: EE. Awaiting placement. Last updated by Dominic Sebastian MD at 01/18/22 16:00 Sign Out Comment: EE. Awaiting placement. Last updated by Ila Hernandez DO at 01/18/22 23:30 Sign Out Comment: Awaiting inpatient psychiatric treatment placement. EE. Last updated by Dominic Sebastian MD at 01/19/22 08:04 Sign Out Comment: still pending placement, no issues during the day Last updated by Hi Cardoza MD at 01/19/22 17:04 Sign Out Comment: Patient stable after my shift. Pending placement. Last updated by Goyo Harding DO at 01/20/22 00:30 Sign Out Comment: No issues overnight, remains stable and unchanged. Last updated by Romie Robles MD at 01/20/22 07:26 Sign Out Comment: no issues during the day Last updated by Hi Cardoza MD at 01/20/22 17:11 Sign Out Comment: code farfan this evening; calmed after we were going to give him meds; awaiting placement Last updated by Wally Dove MD at 01/20/22 23:15 Sign Out Comment: No events overnight. Awaiting placement. Last updated by Ila Hernandez DO at 01/21/22 03:43 Sign Out Comment: Blood sugars better and patient taking his glucophage. Will need to continue to follow and dose with insulin as needed. He is pending placement after 2nd certification yesterday. Last updated by Romie Robles MD at 01/11/22 07:43 Sign Out Comment: EE, awaiting placement; Juni will reconsider if diabetes more controlled Last updated by Wally Dove MD at 01/11/22 17:05 Sign Out Comment: Patient pending psychiatric placement. Patient stable throughout the night. No interventions needed. Last updated by Goyo Harding DO at 01/11/22 23:08 Sign Out Comment: continues to be tangential and talking to self, little sleep, sugars in the 300 range; pending placement. Last updated by Romie Robles MD at 01/12/22 08:21 Sign Out Comment: Patient has continued to have intermittent aggressive outbursts that are not directed at any individuals but has been heard screaming killed their kids. He did agree to take metformin earlier today. I have ordered Risperdal in hopes that he would agree to take this as an antipsychotic. Patient continues to await inpatient psychiatric treatment placement Last updated by Dominic Sebastian MD at 01/12/22 19:52 Sign Out Comment: Continues to be agitated more so this morning than previous. Refusing oral medications but did take IM Zyprexa. Continues to wait for psychiatric bed availability. Last updated by Romie Robles MD at 01/13/22 07:21 Sign Out Comment: Follow-up on medicine consult. Patient awaiting psychiatric inpatient placement. Last updated by Dominic Sebastian MD at 01/13/22 15:41 Discharge Plan Disposition Patient Disposition: STILL A PATIENT Condition: Serious Discharge Details Clinical Impression: Schizoaffective disorder, Diabetes mellitus Primary Care Provider: Unknown,Unknown ED Provider: Dominic Sebastian Home Meds and New Rx's Prescriptions: No Action diphenhydramine HCl [Benadryl] 25 mg Capsule 25 mg PO HS PRN PRN
[2022-01-21] MEDS: Insulin Glargine 300 UNITS/3 ML PEN 30 UNITS SC (20:28)
[2022-01-21] MEDS: diphenhydrAMINE 25 MG CAP 50 MG PO (20:40)
--- NOTE | 2022-01-22 06:27 | ED.PROG_ITS ---
Date of service: 01/21/22 Time of Service: 20:00 Medical Decision Making 1999 -- Please see previous provider's notes for initial presentation, exam, plan and course. 0800 -- No events overnight. Case endorsed to oncoming provider to continue to monitor while awaiting placement. Sign Out Sign Out Data: Sign Out Comment: Patient has BMP pending this morning and will need potentially further insulin dosing until blood sugar better controlled. He is on an EE pending second certification. Has been calm and cooperative overnight. Last updated by Romie Robles MD at 01/10/22 07:50 Sign Out Comment: EE. Continues to refuse meds and have outbursts at times but able to be redirected. Continue to monitor overnight while awaiting placement. Last updated by Ila Hernandez DO at 01/13/22 23:03 Sign Out Comment: EE. Awaiting placement. Poorly controlled DM (intermittently not taking his metformin), Given subq insulin this morning with breakfast Last updated by Wally Dove MD at 01/14/22 07:37 Sign Out Comment: ee for decompensated schizophrenia, on sliding scale insulin as he has repeatedly refused metformin Last updated by Hi Cardoza MD at 01/14/22 17:54 Sign Out Comment: No events overnight. Awaiting placement. Last updated by Ila Hernandez DO at 01/15/22 07:02 Sign Out Comment: no events during the day Last updated by Hi Cardoza MD at 01/15/22 18:36 Sign Out Comment: No events overnight. Awaiting placement. Last updated by Ila Hernandez DO at 01/16/22 01:15 Sign Out Comment: Patient signed out to Dr. Dove at time of shift change awaiting inpatient placement. Last updated by Cassandra Sebastian MD at 01/16/22 15:42 Sign Out Comment: EE. Awaiting placement. Mental health to reassess in AM. If other psych patient upstairs gets placed beforehand, consider [facility] admission Last updated by Wally Dove MD at 01/16/22 23:04 Sign Out Comment: Continues on EE and awaiting placement. Still rambling overnight and mildly agitated but overall no issues. Last updated by Romie Robles MD at 01/17/22 08:00 Sign Out Comment: no issues during the day Last updated by Hi Cardoza MD at 01/17/22 18:46 Sign Out Comment: 2nd cert performed. Glucose improved to mid 300's. Last updated by Greg Mart MD at 01/10/22 18:34 Sign Out Comment: No issues overnight. Remains on EE and still continuously t alking to self in the room, periodically becoming somewhat agitated. Overall redirectable and cooperative. Last updated by Romie Robles MD at 01/18/22 07:32 Sign Out Comment: EE. Awaiting placement. Last updated by Dominic Sebastian MD at 01/18/22 16:00 Sign Out Comment: EE. Awaiting placement. Last updated by Ila Hernandez DO at 01/18/22 23:30 Sign Out Comment: Awaiting inpatient psychiatric treatment placement. EE. Last updated by Dominic Sebastian MD at 01/19/22 08:04 Sign Out Comment: still pending placement, no issues during the day Last updated by Hi Cardoza MD at 01/19/22 17:04 Sign Out Comment: Patient stable after my shift. Pending placement. Last updated by Goyo Harding DO at 01/20/22 00:30 Sign Out Comment: No issues overnight, remains stable and unchanged. Last updated by Romie Robles MD at 01/20/22 07:26 Sign Out Comment: no issues during the day Last updated by Hi Cardoza MD at 01/20/22 17:11 Sign Out Comment: yuliana farfan this evening; calmed after we were going to give him meds; awaiting placement Last updated by Wally Dove MD at 01/20/22 23:15 Sign Out Comment: No events overnight. Awaiting placement. Last updated by Ila Hernandez DO at 01/21/22 03:43 Sign Out Comment: Blood sugars better and patient taking his glucophage. Will need to continue to follow and dose with insulin as needed. He is pending placement after 2nd certification yesterday. Last updated by Romie Robles MD at 01/11/22 07:43 Sign Out Comment: Patient awaiting psychiatric treatment placement. Patient intermittently screaming obscenities and specifically stating kill the children repetitively. Patient did have a code valadez earlier this afternoon when he initially refused to go back in his room demanding that we provide his bag. De-escalation was successful and patient has since been cooperative and calm. Last updated by Dominic Sebastian MD at 01/21/22 19:49 Sign Out Comment: No events overnight. Awaiting placement. Last updated by Ila Hernandez DO at 01/22/22 06:29 Sign Out Comment: EE, awaiting placement; Juni will reconsider if diabetes more controlled Last updated by Wally Dove MD at 01/11/22 17:05 Sign Out Comment: Patient pending psychiatric placement. Patient stable throughout the night. No interventions needed. Last updated by Goyo Harding DO at 01/11/22 23:08 Sign Out Comment: continues to be tangential and talking to self, little sleep, sugars in the 300 range; pending placement. Last updated by Romie Robles MD at 01/12/22 08:21 Sign Out Comment: Patient has continued to have intermittent aggressive outbursts that are not directed at any individuals but has been heard screaming killed their kids. He did agree to take metformin earlier today. I have ordered Risperdal in hopes that he would agree to take this as an antipsychotic. Patient continues to await inpatient psychiatric treatment placement Last updated by Dominic Sebastian MD at 01/12/22 19:52 Sign Out Comment: Continues to be agitated more so this morning than previous. Refusing oral medications but did take IM Zyprexa. Continues to wait for psychiatric bed availability. Last updated by Romie Robles MD at 01/13/22 07:21 Sign Out Comment: Follow-up on medicine consult. Patient awaiting psychiatric inpatient placement. Last updated by Dominic Sebastian MD at 01/13/22 15:41 Discharge Plan Disposition Patient Disposition: STILL A PATIENT Condition: Serious Discharge Details Clinical Impression: Schizoaffective disorder, Diabetes mellitus Primary Care Provider: Unknown,Unknown ED Provider: Dominic Sebastian Home Meds and New Rx's Prescriptions: No Action diphenhydramine HCl [Benadryl] 25 mg Capsule 25 mg PO HS PRN PRN
[2022-01-22] MEDS: Insulin Aspart 300 UNITS/3 ML PEN SC ×4 (08:40→17:08)
[2022-01-22] MEDS: metFORMIN 500 MG TAB 1000 MG PO ×2 (08:43→17:07)
[2022-01-22] MEDS: Insulin Glargine 300 UNITS/3 ML PEN 45 UNITS SC (08:43)
--- NOTE | 2022-01-22 10:20 | PDOC.CMSAFED ---
- If Service Date Differs Date of service: 01/22/22 Time of Service: 10:20 Care Management Safety Plan Status: Involuntary - Reason for Wait Reason for Wait: Inpatient Admission NO CHANGE IN SAFETY PLAN. Safety plan has been established to meet the needs of the patient, and consideration of the care team, to adhere to patient goals, identify restrictions based on behavioral status, address nutrition, and determine allowed personal belongings, tools for hygiene and personal care. Determine level of activity including ambulation, level of supervision, visitors, and determine privileges based on behaviors and level of engagement by pt. A safety huddle is done at 9:[address] Sebastian, ED provider, Yahaira, Nursing Substitute Bus Driver, YESENIA Beauchamp, and RAFIQ Gomez. SAFETY PLAN: 1. Will remain on SI/HI precautions. In Paper Clothes 2. Will remain in room under direct supervision of one-on-one staff at all times provided by CPSO, MAX, SHIP/REC/DOC CONTROL department editor. 3. May have paper cups, plates, finger foods as well as a cardboard spoon to eat meals. 4. Follow [facility] Management of the Admitted Behavioral Health Patient policy. 5. Comfort bath system only. 6. No personal belongings 7. Visitors: None at this time. 8. Activities: Soft cart items and other activities at RN discretion. 9. Bathroom privileges with escort in the ED. 10. Phone: Limited to legal contacts via cordless hospital phone at RN discretion. 11. Due to INVOLUNTARY status, patient is being held at [facility] by the Department of Mental Health ([facility]). A Second Certification by Psychiatrist occurred on 01/10/22 and upheld the EE. Staff will provide de-escalation support (CPI) as needed. If patient wishes to leave [facility], staff will contact [facility] Crisis Screener ([phone]) and On-Call Assistant Toddler Teacher ([phone]) as soon as possible. In the event of elopement, notify [place] [employer] ([phone]). Patient is currently involuntarily at [facility]. [facility] Frontline Electrical Instrument Technician will continue seeking placement. Please contact the Law Professor Assistant Toddler Teacher ([phone]) for any needed changes to Safety Plan. Safety plan has been provided to interdepartmental care team. Patient will be transported by [facility] at time of discharge.
--- NOTE | 2022-01-22 15:50 | MHPN_ITS ---
Date of service: 01/22/22 Time of Service: 15:51 Mental Health Emergency Note Release [facility] release signed:: Yes Reason for Visit In the last 2 weeks has the pt presented for ES prior to today?: Yes, presented at [facility] ED Client Information Client is: New Non Suicidal Self Injury Current: No History: No Safety Risk/Harm to Self or Others Current Ideation to Harm Self or Others: Yes to self. (Cijack's delusions place him at risk of harm to self by others. ) Intent: no, has no intent. Plan: no.does not have a plan. History of suicide attempt: No history of suicide attempt reported Risk: Does risk to harm exist?: yes. Risk: High Risk Duty to warn indicated: No Asssessment/Mental Status Appearance: Disheveled Attitude: Cooperative and Friendly Behavior: Unremarkable Speech: Normal Affect: Constricted Mood: Stressed and Anxious Thought process: Loose associations and Poverty of content Hallucinations: No Delusions: yes, Bizarre Attention: Wandering Perception: Derealization Orientation: Disoriented in Time, Person and Situation Memory: Impaired in: Immediate and Recent Insight: Poor Judgement: Poor Neurovegetative Symptoms Sleep: Increase Appetitie: No change Interests: No change Energy: No change Libido: Not applicable Substance Use: Do you use nicotine?: No Have you used substances in the last 7 days?: No Additional Issues: Assaultive/Threatening Behavior: No Medical Concerns: No Client engaged in active self harm w/weapon: No Threatening to run away: No Child reported abuse/neglect: No Voluntarily presenting for services: No Domestic violence is a concern: No Extreme Psychosis or extreme behavior is present: Yes Impression Client appeared in a better space today. He had gotten a reclining chair yesterday and this has helped his shoulder and bakc pain and he reported he slept better because of it. Although this clinician has met him numerous times he still does not recall who this clinician is or where they work, as he assumes all people to who visit him are hospital staff. His speech seemed to have a stutter to it today and continues to be very rapid. Today he focused on the mattresses at the hospital and suggested they look into purple mattresses. He is reported to be taking all of his medications that are offered annd his blood sugars are improving. Resources Reosurces reviewed and given:: [facility] Plan/Disposition Recommended Disposition: Hospitalization facilities contacted. Reports/communication Outcome discussed with: ED/Personnel
[2022-01-22 16:19] VITALS: BP 134/75; PULSE 115; RESP 22; TEMP 36.4; O2SAT 94
--- NOTE | 2022-01-22 16:45 | CMPROGNOTE_ITS ---
- If Service Date Differs Date of service: 01/22/22 Time of Service: 16:45 Care Management Progress Note S/O: Yadiel remains hospitalized at [facility] and is awaiting an involuntary placement. Yadiel is in a better mood today. His room now has a reclining chair for him to sit in and he reports the chair is helping alleviate his back pain. He continues to willingly take his diabetes medication and per MD, his diabetes is now under better control. Yadiel has been at [facility] for 13 days awaiting placement. A: Ydaiel is a 46 year old male awaiting an involuntary psychiatric placement. P: Yadiel will remain on involuntary status at [facility] and will be reassessed twice daily by [facility] until a psychiatric bed can be secured for him. Referrals are faxed to Juni Deloit, [facility], [facility], [facility], and [facility] for review. Please see referral update as listed below. will continue to follow. 01/22/22 [facility]: Referral under review. No beds available currently. [facility]: Not accepted, Medical reasons. [facility]: Not accepted, No bed available and [facility]. [facility] Not accepted, No bed available. [facility]: Not accepted, Medical reasons and [facility]. [facility]: Referrals only reviewed Mon - Fri 8am to 5pm. - Status Status: Involuntary - Reason for Wait Reason for Wait: Inpatient Admission
--- NOTE | 2022-01-22 16:45 | PDOC.ERCMPRO ---
- If Service Date Differs Date of service: 01/22/22 Time of Service: 16:45 Care Management Progress Note S/O: Yadiel remains hospitalized at [facility] and is awaiting an involuntary placement. Yadiel is in a better mood today. His room now has a reclining chair for him to sit in and he reports the chair is helping alleviate his back pain. He continues to willingly take his diabetes medication and per MD, his diabetes is now under better control. Yadiel has been at [facility] for 13 days awaiting placement. A: Yadiel is a 46 year old male awaiting an involuntary psychiatric placement. P: Yadiel will remain on involuntary status at [facility] and will be reassessed twice daily by [facility] until a psychiatric bed can be secured for him. Referrals are faxed to Juni Onaway, [facility], [facility], [facility], and [facility] for review. Please see referral update as listed below. will continue to follow. 01/22/22 [facility] Referral under review. No beds available currently. [facility]: Not accepted, Medical reasons. [facility]: Not accepted, No bed available and [facility]. [facility] Not accepted, No bed available. [facility]: Not accepted, Medical reasons and [facility]. [facility]: Referrals only reviewed Mon - Fri 8am to 5pm. - Status Status: Involuntary - Reason for Wait Reason for Wait: Inpatient Admission
--- NOTE | 2022-01-22 19:39 | W.EDPROG ---
Date of service: 01/22/22 Time of Service: 19:39 Medical Decision Making No significant changes today. Still awaiting placement. Sign Out Sign Out Data: Sign Out Comment: Patient has BMP pending this morning and will need potentially further insulin dosing until blood sugar better controlled. He is on an EE pending second certification. Has been calm and cooperative overnight. Last updated by Romie Robles MD at 01/10/22 07:50 Sign Out Comment: EE. Continues to refuse meds and have outbursts at times but able to be redirected. Continue to monitor overnight while awaiting placement. Last updated by Ila Hernandez DO at 01/13/22 23:03 Sign Out Comment: EE. Awaiting placement. Poorly controlled DM (intermittently not taking his metformin), Given subq insulin this morning with breakfast Last updated by Wally Dove MD at 01/14/22 07:37 Sign Out Comment: ee for decompensated schizophrenia, on sliding scale insulin as he has repeatedly refused metformin Last updated by Hi Cardoza MD at 01/14/22 17:54 Sign Out Comment: No events overnight. Awaiting placement. Last updated by Ila Hernandez DO at 01/15/22 07:02 Sign Out Comment: no events during the day Last updated by Hi Cardoza MD at 01/15/22 18:36 Sign Out Comment: No events overnight. Awaiting placement. Last updated by Ila Hernandez DO at 01/16/22 01:15 Sign Out Comment: Patient signed out to Dr. Dove at time of shift change awaiting inpatient placement. Last updated by Cassandra Sebastian MD at 01/16/22 15:42 Sign Out Comment: EE. Awaiting placement. Mental health to reassess in AM. If other psych patient upstairs gets placed beforehand, consider [facility] admission Last updated by Wally Dove MD at 01/16/22 23:04 Sign Out Comment: Continues on EE and awaiting placement. Still rambling overnight and mildly agitated but overall no issues. Last updated by Romie Robles MD at 01/17/22 08:00 Sign Out Comment: no issues during the day Last updated by Hi Cardoza MD at 01/17/22 18:46 Sign Out Comment: 2nd cert performed. Glucose improved to mid 300's. Last updated by Greg Mart MD at 01/10/22 18:34 Sign Out Comment: No issues overnight. Remains on EE and still continuously talking to self in the room, periodically becoming somewhat agitated. Overall redirectable and cooperative. Last updated by Romie Robles MD at 01/18/22 07:32 Sign Out Comment: EE. Awaiting placement. Last updated by Dominic Sebastian MD at 01/18/22 16:00 Sign Out Comment: EE. Awaiting placement. Last updated by Ila Hernandez DO at 01/18/22 23:30 Sign Out Comment: Awaiting inpatient psychiatric treatment placement. EE. Last updated by Dominic Sebastian MD at 01/19/22 08:04 Sign Out Comment: still pending placement, no issues during the day Last updated by Hi Cardoza MD at 01/19/22 17:04 Sign Out Comment: Patient stable after my shift. Pending placement. Last updated by Goyo Harding DO at 01/20/22 00:30 Sign Out Comment: No issues overnight, remains stable and unchanged. Last updated by Romie Robles MD at 01/20/22 07:26 Sign Out Comment: no issues during the day Last updated by Hi Cardoza MD at 01/20/22 17:11 Sign Out Comment: code farfan this evening; calmed after we were going to give him meds; awaiting placement Last updated by Wally Dove MD at 01/20/22 23:15 Sign Out Comment: No events overnight. Awaiting placement. Last updated by Ila Hernandez DO at 01/21/22 03:43 Sign Out Comment: Blood sugars better and patient taking his glucophage. Will need to continue to follow and dose with insulin as needed. He is pending placement after 2nd certification yesterday. Last updated by Romie Robles MD at 01/11/22 07:43 Sign Out Comment: Patient awaiting psychiatric treatment placement. Patient intermittently screaming obscenities and specifically stating kill the children repetitively. Patient did have a code valadez earlier this afternoon when he initially refused to go back in his room demanding that we provide his bag. De-escalation was successful and patient has since been cooperative and calm. Last updated by Dominic Sebastian MD at 01/21/22 19:49 Sign Out Comment: No events overnight. Awaiting placement. Last updated by Ila Hernandez DO at 01/22/22 06:29 Sign Out Comment: EE, awaiting placement; Juni will reconsider if diabetes more controlled Last updated by Wally Dove MD at 01/11/22 17:05 Sign Out Comment: Patient pending psychiatric placement. Patient stable throughout the night. No interventions needed. Last updated by Goyo Harding DO at 01/11/22 23:08 Sign Out Comment: continues to be tangential and talking to self, little sleep, sugars in the 300 range; pending placement. Last updated by Romie Robles MD at 01/12/22 08:21 Sign Out Comment: Patient has continued to have intermittent aggressive outbursts that are not directed at any individuals but has been heard screaming killed their kids. He did agree to take metformin earlier today. I have ordered Risperdal in hopes that he would agree to take this as an antipsychotic. Patient continues to await inpatient psychiatric treatment placement Last updated by Dominic Sebastian MD at 01/12/22 19:52 Sign Out Comment: Continues to be agitated more so this morning than previous. Refusing oral medications but did take IM Zyprexa. Continues to wait for psychiatric bed availability. Last updated by Romie Robles MD at 01/13/22 07:21 Sign Out Comment: Follow-up on medicine consult. Patient awaiting psychiatric inpatient placement. Last updated by Dominic Sebastian MD at 01/13/22 15:41 Discharge Plan Disposition Patient Disposition: STILL A PATIENT Condition: Serious Discharge Details Clinical Impression: Schizoaffective disorder, Diabetes mellitus, Anemia Primary Care Provider: Unknown,Unknown ED Provider: Dominic Sebastian Home Meds and New Rx's Prescriptions: No Action diphenhydramine HCl [Benadryl] 25 mg Capsule 25 mg PO HS PRN PRN
[2022-01-22] MEDS: Insulin Glargine 300 UNITS/3 ML PEN 30 UNITS SC (22:21)
--- NOTE | 2022-01-22 22:38 | W.EDPROG ---
Date of service: 01/21/22 Time of Service: 20:00 Medical Decision Making 1999 --please see previous provider's notes for initial presentation, exam, plan and course. Case endorsed to continue to monitor overnight while awaiting placement. Of note, patient was noted to have a hemoglobin of 8 on arrival on 01/09. Dr. Sebastian has ordered a repeat CBC and BMP. 2200 -- patient refused blood draw. 0800 -- Case endorsed to oncoming provider to continue to monitor while awaiting placement. Will re-attempt lab draw this morning. Sign Out Sign Out Data: Sign Out Comment: Patient has BMP pending this morning and will need potentially further insulin dosing until blood sugar better controlled. He is on an EE pending second certification. Has been calm and cooperative overnight. Last updated by Romie Robles MD at 01/10/22 07:50 Sign Out Comment: EE. Continues to refuse meds and have outbursts at times but able to be redirected. Continue to monitor overnight while awaiting placement. Last updated by Ila Hernandez DO at 01/13/22 23:03 Sign Out Comment: EE. Awaiting placement. Poorly controlled DM (intermittently not taking his metformin), Given subq insulin this morning with breakfast Last updated by Wally Dove MD at 01/14/22 07:37 Sign Out Comment: ee for decompensated schizophrenia, on sliding scale insulin as he has repeatedly refused metformin Last updated by Hi Cardoza MD at 01/14/22 17:54 Sign Out Comment: No events overnight. Awaiting placement. Last updated by Ila Hernandez DO at 01/15/22 07:02 Sign Out Comment: no events during the day Last updated by Hi Cardoza MD at 01/15/22 18:36 Sign Out Comment: No events overnight. Awaiting placement. Last updated by Ila Hernandez DO at 01/16/22 01:15 Sign Out Comment: Patient signed out to Dr. Dove at time of shift change awaiting inpatient placement. Last updated by Cassandra Sebastian MD at 01/16/22 15:42 Sign Out Comment: EE. Awaiting placement. Mental health to reassess in AM. If other psych patient upstairs gets placed beforehand, consider [facility] admission Last updated by Wally Dove MD at 01/16/22 23:04 Sign Out Comment: Continues on EE and awaiting placement. Still rambling overnight and mildly agitated but overall no issues. Last updated by Romie Robles MD at 01/17/22 08:00 Sign Out Comment: no issues during the day Last updated by Hi Cardoza MD at 01/17/22 18:46 Sign Out Comment: 2nd cert performed. Glucose improved to mid 300's. Last updated by Greg Mart MD at 01/10/22 18:34 Sign Out Comment: No issues overnight. Remains on EE and still continuously talking to self in the room, periodically becoming somewhat agitated. Overall redirectable and cooperative. Last updated by Romie Robles MD at 01/18/22 07:32 Sign Out Comment: EE. Awaiting placement. Last updated by Dominic Sebastian MD at 01/18/22 16:00 Sign Out Comment: EE. Awaiting placement. Last updated by Ila Hernandez DO at 01/18/22 23:30 Sign Out Comment: Awaiting inpatient psychiatric treatment placement. EE. Last updated by Dominic Sebastian MD at 01/19/22 08:04 Sign Out Comment: still pending placement, no issues during the day Last updated by Hi Cardoza MD at 01/19/22 17:04 Sign Out Comment: Patient stable after my shift. Pending placement. Last updated by Goyo Harding DO at 01/20/22 00:30 Sign Out Comment: No issues overnight, remains stable and unchanged. Last updated by Romie Robles MD at 01/20/22 07:26 Sign Out Comment: no issues during the day Last updated by Hi Cardoza MD at 01/20/22 17:11 Sign Out Comment: code farfan this evening; calmed after we were going to give him meds; awaiting placement Last updated by Wally Dove MD at 01/20/22 23:15 Sign Out Comment: No events overnight. Awaiting placement. Last updated by Ila Hernandez DO at 01/21/22 03:43 Sign Out Comment: Blood sugars better and patient taking his glucophage. Will need to continue to follow and dose with insulin as needed. He is pending placement after 2nd certification yesterday. Last updated by Romie Robles MD at 01/11/22 07:43 Sign Out Comment: Patient awaiting psychiatric treatment placement. Patient intermittently screaming obscenities and specifically stating kill the children repetitively. Patient did have a code valadez earlier this afternoon when he initially refused to go back in his room demanding that we provide his bag. De-escalation was successful and patient has since been cooperative and calm. Last updated by Dominic Sebastian MD at 01/21/22 19:49 Sign Out Comment: No events overnight. Awaiting placement. Last updated by Ila Hernandez DO at 01/22/22 06:29 Sign Out Comment: Awaiting placement. Plan for repeat CBC and chemistry when patient agreeable. Last updated by Dominic Sebastian MD at 01/22/22 19:42 Sign Out Comment: Pt refused lab draw, will reattempt this morning. No other events overnight. Awaiting placement. Last updated by Ila Hernandez DO at 01/23/22 07:03 Sign Out Comment: EE, awaiting placement; Juni will reconsider if diabetes more controlled Last updated by Wally Dove MD at 01/11/22 17:05 Sign Out Comment: Patient pending psychiatric placement. Patient stable throughout the night. No interventions needed. Last updated by Goyo Harding DO at 01/11/22 23:08 Sign Out Comment: continues to be tangential and talking to self, little sleep, sugars in the 300 range; pending placement. Last updated by Romie Robles MD at 01/12/22 08:21 Sign Out Comment: Patient has continued to have intermittent aggressive outbursts that are not directed at any individuals but has been heard screaming killed their kids. He did agree to take metformin earlier today. I have ordered Risperdal in hopes that he would agree to take this as an antipsychotic. Patient continues to await inpatient psychiatric treatment placement Last updated by Dominic Sebastian MD at 01/12/22 19:52 Sign Out Comment: Continues to be agitated more so this morning than previous. Refusing oral medications but did take IM Zyprexa. Continues to wait for psychiatric bed availability. Last updated by Romie Robles MD at 01/13/22 07:21 Sign Out Comment: Follow-up on medicine consult. Patient awaiting psychiatric inpatient placement. Last updated by Dominic Sebastian MD at 01/13/22 15:41 Discharge Plan Disposition Patient Disposition: STILL A PATIENT Condition: Serious Discharge Details Clinical Impression: Schizoaffective disorder, Diabetes mellitus, Anemia Primary Care Provider: Unknown,Unknown ED Provider: Ila Hernandez Home Meds and New Rx's Prescriptions: No Action diphenhydramine HCl [Benadryl] 25 mg Capsule 25 mg PO HS PRN PRN
--- NOTE | 2022-01-23 07:40 | W.EDPROG ---
Date of service: 01/23/22 Time of Service: 07:41 Medical Decision Making pt still pending placement for decompensated schizophrenia, no reported issues overnight, currently calm in his room, will continue to monitor Sign Out Sign Out Data: Sign Out Comment: Patient has BMP pending this morning and will need potentially further insulin dosing until blood sugar better controlled. He is on an EE pending second certification. Has been calm and cooperative overnight. Last updated by Romie Robles MD at 01/10/22 07:50 Sign Out Comment: EE. Continues to refuse meds and have outbursts at times but able to be redirected. Continue to monitor overnight while awaiting placement. Last updated by Ila Hernandez DO at 01/13/22 23:03 Sign Out Comment: EE. Awaiting placement. Poorly controlled DM (intermittently not taking his metformin), Given subq insulin this morning with breakfast Last updated by Wally Dove MD at 01/14/22 07:37 Sign Out Comment: ee for decompensated schizophrenia, on sliding scale insulin as he has repeatedly refused metformin Last updated by Hi Cardoza MD at 01/14/22 17:54 Sign Out Comment: No events overnight. Awaiting placement. Last updated by Ila Hernandez DO at 01/15/22 07:02 Sign Out Comment: no events during the day Last updated by Hi Cardoza MD at 01/15/22 18:36 Sign Out Comment: No events overnight. Awaiting placement. Last updated by Ila Hernandez DO at 01/16/22 01:15 Sign Out Comment: Patient signed out to Dr. Dove at time of shift change awaiting inpatient placement. Last updated by Cassandra Sebastian MD at 01/16/22 15:42 Sign Out Comment: EE. Awaiting placement. Mental health to reassess in AM. If other psych patient upstairs gets placed beforehand, consider [facility] admission Last updated by Wally Dove MD at 01/16/22 23:04 Sign Out Comment: Continues on EE and awaiting placement. Still rambling overnight and mildly agitated but overall no issues. Last updated by Romie Robles MD at 01/17/22 08:00 Sign Out Comment: no issues during the day Last updated by Hi Cardoza MD at 01/17/22 18:46 Sign Out Comment: 2nd cert performed. Glucose improved to mid 300's. Last updated by Greg Mart MD at 01/10/22 18:34 Sign Out Comment: No issues overnight. Remains on EE and still continuously talking to self in the room, periodically becoming somewhat agitated. Overall redirectable and cooperative. Last updated by Romie Robles MD at 01/18/22 07:32 Sign Out Comment: EE. Awaiting placement. Last updated by Dominic Sebastian MD at 01/18/22 16:00 Sign Out Comment: EE. Awaiting placement. Last updated by Ila Hernandez DO at 01/18/22 23:30 Sign Out Comment: Awaiting inpatient psychiatric treatment placement. EE. Last updated by Dominic Sebastian MD at 01/19/22 08:04 Sign Out Comment: still pending placement, no issues during the day Last updated by Hi Cardoza MD at 01/19/22 17:04 Sign Out Comment: Patient stable after my shift. Pending placement. Last updated by Goyo Harding DO at 01/20/22 00:30 Sign Out Comment: No issues overnight, remains stable and unchanged. Last updated by Romie Robles MD at 01/20/22 07:26 Sign Out Comment: no issues during the day Last updated by Hi Cardoza MD at 01/20/22 17:11 Sign Out Comment: code farfan this evening; calmed after we were going to give him meds; awaiting placement Last updated by Wally Dove MD at 01/20/22 23:15 Sign Out Comment: No events overnight. Awaiting placement. Last updated by Ila Hernandez DO at 01/21/22 03:43 Sign Out Comment: Blood sugars better and patient taking his glucophage. Will need to continue to follow and dose with insulin as needed. He is pending placement after 2nd certification yesterday. Last updated by Romie Robles MD at 01/11/22 07:43 Sign Out Comment: Patient awaiting psychiatric treatment placement. Patient intermittently screaming obscenities and specifically stating kill the children repetitively. Patient did have a code valadez earlier this afternoon when he initially refused to go back in his room demanding that we provide his bag. De-escalation was successful and patient has since been cooperative and calm. Last updated by Dominic Sebastian MD at 01/21/22 19:49 Sign Out Comment: No events overnight. Awaiting placement. Last updated by Ila Hernandez DO at 01/22/22 06:29 Sign Out Comment: Awaiting placement. Plan for repeat CBC and chemistry when patient agreeable. Last updated by Dominic Sebastian MD at 01/22/22 19:42 Sign Out Comment: Pt refused lab draw, will reattempt this morning. No other events overnight. Awaiting placement. Last updated by Ila Hernandez DO at 01/23/22 07:03 Sign Out Comment: EE, awaiting placement; [place] will reconsider if diabetes more controlled Last updated by Wally Dove MD at 01/11/22 17:05 Sign Out Comment: Patient pending psychiatric placement. Patient stable throughout the night. No interventions needed. Last updated by Goyo Harding DO at 01/11/22 23:08 Sign Out Comment: continues to be tangential and talking to self, little sleep, sugars in the 300 range; pending placement. Last updated by Romie Robles MD at 01/12/22 08:21 Sign Out Comment: Patient has continued to have intermittent aggressive outbursts that are not directed at any individuals but has been heard screaming killed their kids. He did agree to take metformin earlier today. I have ordered Risperdal in hopes that he would agree to take this as an antipsychotic. Patient continues to await inpatient psychiatric treatment placement Last updated by Dominic Sebastian MD at 01/12/22 19:52 Sign Out Comment: Continues to be agitated more so this morning than previous. Refusing oral medications but did take IM Zyprexa. Continues to wait for psychiatric bed availability. Last updated by Romie Robles MD at 01/13/22 07:21 Sign Out Comment: Follow-up on medicine consult. Patient awaiting psychiatric inpatient placement. Last updated by Dominic Sebastian MD at 01/13/22 15:41 Discharge Plan Disposition Patient Disposition: STILL A PATIENT Condition: Serious Discharge Details Clinical Impression: Schizoaffective disorder, Diabetes mellitus, Anemia Primary Care Provider: Unknown,Unknown ED Provider: Hi Cardoza Home Meds and New Rx's Prescriptions: No Action diphenhydramine HCl [Benadryl] 25 mg Capsule 25 mg PO HS PRN PRN
[2022-01-23] MEDS: Insulin Aspart 300 UNITS/3 ML PEN SC ×4 (08:18→17:24)
[2022-01-23] MEDS: Insulin Glargine 300 UNITS/3 ML PEN 45 UNITS SC (08:23)
[2022-01-23] MEDS: metFORMIN 500 MG TAB 1000 MG PO ×2 (08:24→17:24)
--- NOTE | 2022-01-23 10:10 | CMSP_ITS ---
- If Service Date Differs Date of service: 01/23/22 Time of Service: 10:10 Care Management Safety Plan Status: Involuntary - Reason for Wait Reason for Wait: Inpatient Admission Safety plan has been established to meet the needs of the patient, and consideration of the care team, to adhere to patient goals, identify restrictions based on behavioral status, address nutrition, and determine allowed personal belongings, tools for hygiene and personal care. Determine level of activity including ambulation, level of supervision, visitors, and determine privileges based on behaviors and level of engagement by pt. No changes are made to his safety plan. SAFETY PLAN: 1. Will remain on SI/HI precautions. In Paper Clothes 2. Will remain in room under direct supervision of one-on-one staff at all times provided by CPSO, AUTO GARAGE ATTENDANT, SALVAGE MEND WORKER director of strategy & mobile. 3. May have paper cups, plates, finger foods as well as a cardboard spoon to eat meals. 4. Follow [facility] Management of the Admitted Behavioral Health Patient policy. 5. Comfort bath system only. 6. No personal belongings 7. Visitors: None at this time. 8. Activities: Soft cart items and other activities at RN discretion. 9. Bathroom privileges with escort in the ED. 10. Phone: Limited to legal contacts via cordless hospital phone at RN discretion. 11. Due to INVOLUNTARY status, patient is being held at [facility] by the Department of Mental Health ([facility]). A Second Certification by Psychiatrist occurred on 01/10/22 and upheld the EE. Staff will provide de-escalation support (CPI) as needed. If patient wishes to leave [facility], staff will contact [facility] Crisis Screener ([phone]) and On-Call Housekeeping Room Attendant ([phone]) as soon as possible. In the event of elopement, notify [place] [employer] ([phone]). Patient is currently involuntarily at [facility]. [facility] Frontline Automatic Lehr Operator will continue seeking placement. Please contact the Support Architect Housekeeping Room Attendant ([phone]) for any needed changes to Safety Plan. Safety plan has been provided to interdepartmental care team. Patient will be transported by [employer] at time of discharge.
--- NOTE | 2022-01-23 10:11 | CMPROGNOTE_ITS ---
- If Service Date Differs Date of service: 01/23/22 Time of Service: 10:11 Care Management Progress Note S/O: [facility] helped Yadiel complete Medicaid paperwork today.Yadiel remains hospitalized at [facility] and is awaiting involuntary placement. [facility] and [facility] are working together on placement. A: Yadiel is a 46 year old male awaiting an involuntary psychiatric placement. P: Yadiel will remain on involuntary status at [facility] and will be reassessed twice daily by [facility] until a psychiatric bed can be secured for him. [facility]errals are [facility] to [facility], [facility], [facility], and [facility] for review. Please see referral update as listed below. CM will continue to follow. PER [facility]: 01/23 [facility] Not accepted, Medical reasons [facility] Not accepted, [facility] Not accepted, [facility], [facility] Not accepted, No bed available and Only accepting in house referrals [facility] Not accepted, No bed available [facility] Not accepted, Medical reasons and [facility]
--- NOTE | 2022-01-23 10:11 | PDOC.ERCMPRO ---
- If Service Date Differs Date of service: 01/23/22 Time of Service: 10:11 Care Management Progress Note S/O: [facility] helped Yadiel complete Medicaid paperwork today.Yadiel remains hospitalized at [facility] and is awaiting involuntary placement. [facility] and [facility] are working together on placement. A: Yadiel is a 46 year old male awaiting an involuntary psychiatric placement. P: Yadiel will remain on involuntary status at [facility] and will be reassessed twice daily by [facility] until a psychiatric bed can be secured for him. [facility] are [facility] to [facility], , [facility], and [facility] for review. Please see referral update as listed below. CM will continue to follow. PER [facility]: 01/23 [facility] Not accepted, Medical reasons [facility] Not accepted, [facility] Not accepted, [facility], [facility] Not accepted, No bed available and Only accepting in house referrals [facility] Not accepted, No bed available [facility] Not accepted, Medical reasons and [facility]
--- NOTE | 2022-01-23 13:53 | PDOC.MHPN2 ---
Date of service: 01/23/22 Time of Service: 12:37 Mental Health Emergency Note Release [facility] release signed:: Yes Reason for Visit Client is on EE status at [facility]. In the last 2 weeks has the pt presented for ES prior to today?: Yes, presented at [facility] ED Client Information Client is: New Well Housed: No,status: Homeless Non Suicidal Self Injury Current: No History: No Safety Risk/Harm to Self or Others Current Ideation to Harm Self or Others: No Asssessment/Mental Status Appearance: Disheveled and Inappropriate Attitude: Cooperative Behavior: Unremarkable Speech: Loud and Slurred Affect: Cogruent with mood Mood: Stressed and Anxious Thought process: Racing, Circumstational and Tangential Hallucinations: No evidence (Client reports he no longer responds to internal stimuli.) Delusions: yes, Thought broadcasting Attention: Unremarkable Perception: Not impaired Orientation: Fully orientated Memory: Intact Insight: Fair Judgement: Fair Neurovegetative Symptoms Sleep: No change Appetitie: No change Interests: No change Energy: No change Libido: Not applicable Substance Use: Do you use nicotine?: No Have you used substances in the last 7 days?: No Additional Issues: Assaultive/Threatening Behavior: No Medical Concerns: Yes Client engaged in active self harm w/weapon: No Threatening to run away: No Child reported abuse/neglect: No Voluntarily presenting for services: No Domestic violence is a concern: No Extreme Psychosis or extreme behavior is present: Yes Impression CP was cooperative and calm during his interaction with this clinician and internet sales director . CP reports he is not currently endorsing SI/HI/NSSI. CP continues to show racing thoughts with thought broadcasting in his conversation about the [employer]. CP went on a tangent about the [employer] and that [facility] should buy more comfortable beds for their hospital. CP and this clinician were able to fill out Medicaid paperwork. CP presented better today than previous days, but CP is still in need of treatment. Plan/Disposition Recommended Disposition: Hospitalization facilities contacted. Plan: CP will continue to wait at [facility] until treatment is found. This clinician will send out his Medicaid paperwork and continue to work with [facility] on getting him placed as soon as possible. Person reported agreement to plan: No Facilities contacted if Applicable [facility] Not accepted, Medical reasons [facility] Not accepted, [facility] Not accepted, [facility], [facility] Not accepted, No bed available and Only accepting in house referrals [facility] Not accepted, No bed available [facility] Not accepted, Medical reasons and [facility] Reports/communication Outcome discussed with: ED/Personnel
[2022-01-23] MEDS: Insulin Glargine 300 UNITS/3 ML PEN 25 UNITS SC (22:08)
--- NOTE | 2022-01-24 00:24 | W.EDPROG ---
Date of service: 01/23/22 Time of Service: 23:30 Medical Decision Making 2330 -- Please see previous provider's notes for initial presentation, exam, plan and course. Case endorsed to continue to monitor overnight while awaiting placement. Plan is for admission to the floor tomorrow if no code farfan. 0800 -- No events overnight. Case endorsed to oncoming provider -- plan for admission to the floor today while awaiting placement. Sign Out Sign Out Data: Sign Out Comment: Patient has BMP pending this morning and will need potentially further insulin dosing until blood sugar better controlled. He is on an EE pending second certification. Has been calm and cooperative overnight. Last updated by Romie Robles MD at 01/10/22 07:50 Sign Out Comment: EE. Continues to refuse meds and have outbursts at times but able to be redirected. Continue to monitor overnight while awaiting placement. Last updated by Ila Hernandez DO at 01/13/22 23:03 Sign Out Comment: EE. Awaiting placement. Poorly controlled DM (intermittently not taking his metformin), Given subq insulin this morning with breakfast Last updated by Wally Dove MD at 01/14/22 07:37 Sign Out Comment: ee for decompensated schizophrenia, on sliding scale insulin as he has repeatedly refused metformin Last updated by Hi Cardoza MD at 01/14/22 17:54 Sign Out Comment: No events overnight. Awaiting placement. Last updated by Ila Hernandez DO at 01/15/22 07:02 Sign Out Comment: no events during the day Last updated by Hi Cardoza MD at 01/15/22 18:36 Sign Out Comment: No events overnight. Awaiting placement. Last updated by Ila Hernandez DO at 01/16/22 01:15 Sign Out Comment: Patient signed out to Dr. Dove at time of shift change awaiting inpatient placement. Last updated by Cassandra Sebastian MD at 01/16/22 15:42 Sign Out Comment: EE. Awaiting placement. Mental health to reassess in AM. If other psych patient upstairs gets placed beforehand, consider [facility] admission Last updated by Wally Dove MD at 01/16/22 23:04 Sign Out Comment: Continues on EE and awaiting placement. Still rambling overnight and mildly agitated but overall no issues. Last updated by Romie Robles MD at 01/17/22 08:00 Sign Out Comment: no issues during the day Last updated by Hi Cardoza MD at 01/17/22 18:46 Sign Out Comment: 2nd cert performed. Glucose improved to mid 300's. Last updated by Greg Mart MD at 01/10/22 18:34 Sign Out Comment: No issues overnight. Remains on EE and still continuously talking to self in the room, periodically becoming somewhat agitated. Overall redirectable and cooperative. Last updated by Romie Robles MD at 01/18/22 07:32 Sign Out Comment: EE. Awaiting placement. Last updated by Dominic Sebastian MD at 01/18/22 16:00 Sign Out Comment: EE. Awaiting placement. Last updated by Ila Hernandez DO at 01/18/22 23:30 Sign Out Comment: Awaiting inpatient psychiatric treatment placement. EE. Last updated by Dominic Sebastian MD at 01/19/22 08:04 Sign Out Comment: still pending placement, no issues during the day Last updated by Hi Cardoza MD at 01/19/22 17:04 Sign Out Comment: Patient stable after my shift. Pending placement. Last updated by Goyo Harding DO at 01/20/22 00:30 Sign Out Comment: No issues overnight, remains stable and unchanged. Last updated by Romie Robles MD at 01/20/22 07:26 Sign Out Comment: no issues during the day Last updated by Hi Cardoza MD at 01/20/22 17:11 Sign Out Comment: code farfan this evening; calmed after we were going to give him meds; awaiting placement Last updated by Wally Dove MD at 01/20/22 23:15 Sign Out Comment: No events overnight. Awaiting placement. Last updated by Ila Hernandez DO at 01/21/22 03:43 Sign Out Comment: Blood sugars better and patient taking his glucophage. Will need to continue to follow and dose with insulin as needed. He is pending placement after 2nd certification yesterday. Last updated by Romie Robles MD at 01/11/22 07:43 Sign Out Comment: Patient awaiting psychiatric treatment placement. Patient intermittently screaming obscenities and specifically stating kill the children repetitively. Patient did have a code valadez earlier this afternoon when he initially refused to go back in his room demanding that we provide his bag. De-escalation was successful and patient has since been cooperative and calm. Last updated by Dominic Sebastian MD at 01/21/22 19:49 Sign Out Comment: No events overnight. Awaiting placement. Last updated by Ila Hernandez DO at 01/22/22 06:29 Sign Out Comment: Awaiting placement. Plan for repeat CBC and chemistry when patient agreeable. Last updated by Dominic Sebastian MD at 01/22/22 19:42 Sign Out Comment: Pt refused lab draw, will reattempt this morning. No other events overnight. Awaiting placement. Last updated by Ila Hernandez DO at 01/23/22 07:03 Sign Out Comment: still pending placement for decompensated schizophrenia Last updated by Hi Cardoza MD at 01/23/22 07:42 Sign Out Comment: will be accepted upstairs for admission if no code greys overnight; EE awaiting placement Last updated by Wally Dove MD at 01/23/22 23:42 Sign Out Comment: No events overnight. Plan is for admission upstairs today if no code farfan. Last updated by Ila Hernandez DO at 01/24/22 02:21 Sign Out Comment: EE, awaiting placement; Juni will reconsider if diabetes more controlled Last updated by Wally Dove MD at 01/11/22 17:05 Sign Out Comment: Patient pending psychiatric placement. Patient stable throughout the night. No interventions needed. Last updated by Goyo Harding DO at 01/11/22 23:08 Sign Out Comment: continues to be tangential and talking to self, little sleep, sugars in the 300 range; pending placement. Last updated by Romie Robles MD at 01/12/22 08:21 Sign Out Comment: Patient has continued to have intermittent aggressive outbursts that are not directed at any individuals but has been heard screaming killed their kids. He did agree to take metformin earlier today. I have ordered Risperdal in hopes that he would agree to take this as an antipsychotic. Patient continues to await inpatient psychiatric treatment placement Last updated by Dominic Sebastian MD at 01/12/22 19:52 Sign Out Comment: Continues to be agitated more so this morning than previous. Refusing oral medications but did take IM Zyprexa. Continues to wait for psychiatric bed availability. Last updated by Romie Robles MD at 01/13/22 07:21 Sign Out Comment: Follow-up on medicine consult. Patient awaiting psychiatric inpatient placement. Last updated by Dominic Sebastian MD at 01/13/22 15:41 Discharge Plan Disposition Patient Disposition: STILL A PATIENT Condition: Serious Discharge Details Clinical Impression: Schizoaffective disorder, Diabetes mellitus, Anemia Primary Care Provider: Unknown,Unknown ED Provider: Dominic Sebastian Home Meds and New Rx's Prescriptions: No Action diphenhydramine HCl [Benadryl] 25 mg Capsule 25 mg PO HS PRN PRN
[2022-01-24] MEDS: Insulin Aspart 300 UNITS/3 ML PEN SC ×8 (07:14→22:10)
[2022-01-24] MEDS: Insulin Glargine 300 UNITS/3 ML PEN 40 UNITS SC (08:41)
[2022-01-24] MEDS: metFORMIN 500 MG TAB 1000 MG PO (08:41)
--- NOTE | 2022-01-24 11:30 | RT.EKG_ITS ---
APPROVED REPORT Exam: Resting ECG Reason for Exam: had chest pain Patient Location: E HR:109 bpm ECG Measurements Heart Rate 109 AXIS MT 117 P 53 QRSd 86 QRS 43 QT 342 T 170 QTc 460 Conclusion Sinus tachycardia...rate> 99 Repol abnrm suggests ischemia, lateral leads...ST dep, T neg, I aVL V5 V6
--- NOTE | 2022-01-24 14:07 | PDOC.CMSAFED ---
- If Service Date Differs Date of service: 01/24/22 Time of Service: 14:07 Care Management Safety Plan Status: Involuntary - Reason for Wait Reason for Wait: Inpatient Admission Safety plan has been established to meet the needs of the patient, and consideration of the care team, to adhere to patient goals, identify restrictions based on behavioral status, address nutrition, and determine allowed personal belongings, tools for hygiene and personal care. Determine level of activity including ambulation, level of supervision, visitors, and determine privileges based on behaviors and level of engagement by pt. No changes are made to his safety plan. SAFETY PLAN: 1. Will remain on SI/HI precautions. In Paper Clothes 2. Will remain in room under direct supervision of one-on-one staff at all times provided by [employer], FORGING MACHINE HAND, QA SOFTWARE TESTER beauty school instructor. 3. May have paper cups, plates, finger foods as well as a cardboard spoon to eat meals. 4. Follow [facility] Management of the Admitted Behavioral Health Patient policy. 5. Comfort bath system only. 6. No personal belongings 7. Visitors: None at this time. 8. Activities: Soft cart items and other activities at RN discretion. 9. Bathroom privileges with escort in the ED. 10. Phone: Limited to legal contacts via cordless hospital phone at RN discretion. 11. Due to INVOLUNTARY status, patient is being held at [facility] by the Department of Mental Health ([facility]). A Second Certification by Psychiatrist occurred on 01/10/22 and upheld the EE. Staff will provide de-escalation support (CPI) as needed. If patient wishes to leave [facility], staff will contact [facility] Crisis Screener ([phone]) and On-Call Filament Shaper ([phone]) as soon as possible. In the event of elopement, notify [place] [employer] ([phone]). Patient is currently involuntarily at [facility]. [facility] Frontline Conduit Bender will continue seeking placement. Please contact the Computer Hardware Engineer Filament Shaper ([phone]) for any needed changes to Safety Plan. Safety plan has been provided to interdepartmental care team. Patient will be transported by [employer] at time of discharge.
--- NOTE | 2022-01-24 21:07 | ED.PROG_ITS ---
Date of service: 01/16/22 Time of Service: 07:30 Medical Decision Making 01/16/22 0730: Patient signed out to me at time of shift change with inpatient placement pending. Patient refused risperidone this morning.? Patient agreed to take insulin before both breakfast and lunch, ate both meals.? Concern for possible electrolyte/metabolic derangement given persistent elevated blood sugars, plan for BMP.? Patient initially refused BMP. Blood draw was attempted by lab, patient was moving and clenching fist, blood draw was unsuccessful. Patient became agitated after eating lunch, demanding to speak to the police, demanding to leave the hospital, stating I need to karley you guys, the equipment used for the blood draw was completely unprofessional referring to the butterfly needle.? Patient left his room and was standing at doors to the waiting room demanding to speak to the police and demanding to leave the hospital.? Patient stated to me I refuse to talk to you, you're blonde, you think that just because you are blonde you can act completely unprofessionally.? After lengthy verbal de-escalation patient agreed to p.o. meds and agreed to return to his room.? Patient took p.o. down and p.o. Zyprexa.? Patient agreed to repeat lab draw. At time of shift change patient is sleeping.? Labs reviewed, sodium 126 (corrected sodium greater than 130, concern for pseudohyponatremia).? Anion gap 13.9, glucose 48, carbon dioxide 23.1.? Does not meet criteria for DKA.? We will continue to monitor.? Patient signed out to Dr. Dove at time of shift change with inpatient placement pending. Medical Records Medical records reviewed: Yes I reviewed the patient's medical records. Lab Data Lab results reviewed: Yes I reviewed the patient's lab results. Sign Out Sign Out Data: Sign Out Comment: Patient has BMP pending this morning and will need potentially further insulin dosing until blood sugar better controlled. He is on an EE pending second certification. Has been calm and cooperative overnight. Last updated by Romie Robles MD at 01/10/22 07:50 Sign Out Comment: EE. Continues to refuse meds and have outbursts at times but able to be redirected. Continue to monitor overnight while awaiting placement. Last updated by Ila Hernandez DO at 01/13/22 23:03 Sign Out Comment: EE. Awaiting placement. Poorly controlled DM (intermittently not taking his metformin), Given subq insulin this morning with breakfast Last updated by Wally Dove MD at 01/14/22 07:37 Sign Out Comment: ee for decompensated schizophrenia, on sliding scale insulin as he has repeatedly refused metformin Last updated by Hi Cardoza MD at 01/14/22 17:54 Sign Out Comment: No events overnight. Awaiting placement. Last updated by Ila Hernandez DO at 01/15/22 07:02 Sign Out Comment: no events during the day Last updated by Hi Cardoza MD at 01/15/22 18:36 Sign Out Comment: No events overnight. Awaiting placement. Last updated by Ila Hernandez DO at 01/16/22 01:15 Sign Out Comment: Patient signed out to Dr. Dove at time of shift change awaiting inpatient placement. Last updated by Cassandra Sebastian MD at 01/16/22 15:42 Sign Out Comment: EE. Awaiting placement. Mental health to reassess in AM. If other psych patient upstairs gets placed beforehand, consider [facility] admission Last updated by Wally Dove MD at 01/16/22 23:04 Sign Out Comment: Continues on EE and awaiting placement. Still rambling overnight and mildly agitated but overall no issues. Last updated by Romie Robles MD at 01/17/22 08:00 Sign Out Comment: no issues during the day Last updated by Hi Cardoza MD at 01/17/22 18:46 Sign Out Comment: 2nd cert performed. Glucose improved to mid 300's. Last updated by Greg Mart MD at 01/10/22 18:34 Sign Out Comment: No issues overnight. Remains on EE and still continuously talking to self in the room, periodically becoming somewhat agitated. Overall redirectable and cooperative. Last updated by Romie Robles MD at 01/18/22 07:32 Sign Out Comment: EE. Awaiting placement. Last updated by Dominic Sebastian MD at 01/18/22 16:00 Sign Out Comment: EE. Awaiting placement. Last updated by Ila Hernandez DO at 01/18/22 23:30 Sign Out Comment: Awaiting inpatient psychiatric treatment placement. EE. Last updated by Dominic Sebastian MD at 01/19/22 08:04 Sign Out Comment: still pending placement, no issues during the day Last updated by Hi Cardoza MD at 01/19/22 17:04 Sign Out Comment: Patient stable after my shift. Pending placement. Last updated by Goyo Harding DO at 01/20/22 00:30 Sign Out Comment: No issues overnight, remains stable and unchanged. Last updated by Romie Robles MD at 01/20/22 07:26 Sign Out Comment: no issues during the day Last updated by Hi Cardoza MD at 01/20/22 17:11 Sign Out Comment: code farfan this evening; calmed after we were going to give him meds; awaiting placement Last updated by Wally Dove MD at 01/20/22 23:15 Sign Out Comment: No events overnight. Awaiting placement. Last updated by Ila Hernandez DO at 01/21/22 03:43 Sign Out Comment: Blood sugars better and patient taking his glucophage. Will need to continue to follow and dose with insulin as needed. He is pending placement after 2nd certification yesterday. Last updated by Romie Robles MD at 01/11/22 07:43 Sign Out Comment: Patient awaiting psychiatric treatment placement. Patient intermittently screaming obscenities and specifically stating kill the children repetitively. Patient did have a code valadez earlier this afternoon when he initially refused to go back in his room demanding that we provide his bag. De-escalation was successful and patient has since been cooperative and calm. Last updated by Dominic Sebastian MD at 01/21/22 19:49 Sign Out Comment: No events overnight. Awaiting placement. Last updated by Ila Hernandez DO at 01/22/22 06:29 Sign Out Comment: Awaiting placement. Plan for repeat CBC and chemistry when patient agreeable. Last updated by Dominic Sebastian MD at 01/22/22 19:42 Sign Out Comment: Pt refused lab draw, will reattempt this morning. No other events overnight. Awaiting placement. Last updated by Ila Hernandez DO at 01/23/22 07:03 Sign Out Comment: still pending placement for decompensated schizophrenia Last updated by Hi Cardoza MD at 01/23/22 07:42 Sign Out Comment: will be accepted upstairs for admission if no code greys overnight; EE awaiting placement Last updated by Wally Dove MD at 01/23/22 23:42 Sign Out Comment: No events overnight. Plan is for admission upstairs today if no code farfan. Last updated by Ila Hernandez DO at 01/24/22 02:21 Sign Out Comment: awaiting psych placement. Last updated by Dominic Sebastian MD at 01/24/22 20:12 Sign Out Comment: need doc to doc signout before transport to [facility] this evening Last updated by Wally Dove MD at 01/25/22 07:37 Sign Out Comment: EE, awaiting placement; Juni will reconsider if diabetes more controlled Last updated by Wally Dove MD at 01/11/22 17:05 Sign Out Comment: Patient pending psychiatric placement. Patient stable throughout the night. No interventions needed. Last updated by Goyo Harding DO at 01/11/22 23:08 Sign Out Comment: continues to be tangential and talking to self, little sleep, sugars in the 300 range; pending placement. Last updated by Romie Robles MD at 01/12/22 08:21 Sign Out Comment: Patient has continued to have intermittent aggressive outbursts that are not directed at any individuals but has been heard screaming killed their kids. He did agree to take metformin earlier today. I have ordered Risperdal in hopes that he would agree to take this as an antipsychotic. Patient continues to await inpatient psychiatric treatment placement Last updated by Dominic Sebastian MD at 01/12/22 19:52 Sign Out Comment: Continues to be agitated more so this morning than previous. Refusing oral medications but did take IM Zyprexa. Continues to wait for psychiatric bed availability. Last updated by Romie Robles MD at 01/13/22 07:21 Sign Out Comment: Follow-up on medicine consult. Patient awaiting psychiatric inpatient placement. Last updated by Dominic Sebastian MD at 01/13/22 15:41 Discharge Plan Disposition Patient Disposition: STILL A PATIENT Condition: Serious Discharge Details Clinical Impression: Schizoaffective disorder, Diabetes mellitus, Anemia Primary Care Provider: Unknown,Unknown ED Provider: Cassandra Sebastian Home Meds and New Rx's Prescriptions: No Action diphenhydramine HCl [Benadryl] 25 mg Capsule 25 mg PO HS PRN PRN
[2022-01-24] MEDS: Insulin Glargine 300 UNITS/3 ML PEN 25 UNITS SC (22:11)
[2022-01-25] MEDS: Insulin Aspart 300 UNITS/3 ML PEN SC ×3 (08:02→17:00)
[2022-01-25] MEDS: Insulin Glargine 300 UNITS/3 ML PEN 40 UNITS SC (08:03)
[2022-01-25] MEDS: metFORMIN 500 MG TAB 1000 MG PO ×2 (08:04→17:00)
[2022-01-25 10:34] VITALS: BP 135/84; PULSE 100; RESP 12
--- NOTE | 2022-01-25 11:19 | W.EDPROG ---
Date of service: 01/25/22 Time of Service: 07:30 Medical Decision Making Patient signed out to me at time of shift change by Dr. Dove with transportation to [place] pending. Patient signed out to Dr. Harding at time of shift change with transfer for to [place] pending. Medical Records Medical records reviewed: Yes I reviewed the patient's medical records. Lab Data Lab results reviewed: Yes I reviewed the patient's lab results. Sign Out Sign Out Data: Sign Out Comment: Patient has BMP pending this morning and will need potentially further insulin dosing until blood sugar better controlled. He is on an EE pending second certification. Has been calm and cooperative overnight. Last updated by Romie Robles MD at 01/10/22 07:50 Sign Out Comment: EE. Continues to refuse meds and have outbursts at times but able to be redirected. Continue to monitor overnight while awaiting placement. Last updated by Ila Hernandez DO at 01/13/22 23:03 Sign Out Comment: EE. Awaiting placement. Poorly controlled DM (intermittently not taking his metformin), Given subq insulin this morning with breakfast Last updated by Wally Dove MD at 01/14/22 07:37 Sign Out Comment: ee for decompensated schizophrenia, on sliding scale insulin as he has repeatedly refused metformin Last updated by Hi Cardoza MD at 01/14/22 17:54 Sign Out Comment: No events overnight. Awaiting placement. Last updated by Ila Hernandez DO at 01/15/22 07:02 Sign Out Comment: no events during the day Last updated by Hi Cardoza MD at 01/15/22 18:36 Sign Out Comment: No events overnight. Awaiting placement. Last updated by Ila Hernandez DO at 01/16/22 01:15 Sign Out Comment: Patient signed out to Dr. Dove at time of shift change awaiting inpatient placement. Last updated by Cassandra Sebastian MD at 01/16/22 15:42 Sign Out Comment: EE. Awaiting placement. Mental health to reassess in AM. If other psych patient upstairs gets placed beforehand, consider [facility] admission Last updated by Wally Dove MD at 01/16/22 23:04 Sign Out Comment: Continues on EE and awaiting placement. Still rambling overnight and mildly agitated but overall no issues. Last updated by Romie Robles MD at 01/17/22 08:00 Sign Out Comment: no issues during the day Last updated by Hi Cardoza MD at 01/17/22 18:46 Sign Out Comment: 2nd cert performed. Glucose improved to mid 300's. Last updated by Greg Mart MD at 01/10/22 18:34 Sign Out Comment: No issues overnight. Remains on EE and still continuously talking to self in the room, periodically becoming somewhat agitated. Overall redirectable and cooperative. Last updated by Romie Robles MD at 01/18/22 07:32 Sign Out Comment: EE. Awaiting placement. Last updated by Dominic Sebastian MD at 01/18/22 16:00 Sign Out Comment: EE. Awaiting placement. Last updated by Ila Hernandez DO at 01/18/22 23:30 Sign Out Comment: Awaiting inpatient psychiatric treatment placement. EE. Last updated by Dominic Sebastian MD at 01/19/22 08:04 Sign Out Comment: still pending placement, no issues during the day Last updated by Hi Cardoza MD at 01/19/22 17:04 Sign Out Comment: Patient stable after my shift. Pending placement. Last updated by Goyo Harding DO at 01/20/22 00:30 Sign Out Comment: No issues overnight, remains stable and unchanged. Last updated by Romie Robles MD at 01/20/22 07:26 Sign Out Comment: no issues during the day Last updated by Hi Cardoza MD at 01/20/22 17:11 Sign Out Comment: code farfan this evening; calmed after we were going to give him meds; awaiting placement Last updated by Wally Dove MD at 01/20/22 23:15 Sign Out Comment: No events overnight. Awaiting placement. Last updated by Ila Hernandez DO at 01/21/22 03:43 Sign Out Comment: Blood sugars better and patient taking his glucophage. Will need to continue to follow and dose with insulin as needed. He is pending placement after 2nd certification yesterday. Last updated by Romie Robles MD at 01/11/22 07:43 Sign Out Comment: Patient awaiting psychiatric treatment placement. Patient intermittently screaming obscenities and specifically stating kill the children repetitively. Patient did have a code valadez earlier this afternoon when he initially refused to go back in his room demanding that we provide his bag. De-escalation was successful and patient has since been cooperative and calm. Last updated by Dominic Sebastian MD at 01/21/22 19:49 Sign Out Comment: No events overnight. Awaiting placement. Last updated by Ila Hernandez DO at 01/22/22 06:29 Sign Out Comment: Awaiting placement. Plan for repeat CBC and chemistry when patient agreeable. Last updated by Dominic Sebastian MD at 01/22/22 19:42 Sign Out Comment: Pt refused lab draw, will reattempt this morning. No other events overnight. Awaiting placement. Last updated by Ila Hernandez DO at 01/23/22 07:03 Sign Out Comment: still pending placement for decompensated schizophrenia Last updated by Hi Cardoza MD at 01/23/22 07:42 Sign Out Comment: will be accepted upstairs for admission if no code greys overnight; EE awaiting placement Last updated by Wally Dove MD at 01/23/22 23:42 Sign Out Comment: No events overnight. Plan is for admission upstairs today if no code farfan. Last updated by Ila Hernandez DO at 01/24/22 02:21 Sign Out Comment: awaiting psych placement. Last updated by Dominic Sebastian MD at 01/24/22 20:12 Sign Out Comment: need doc to doc signout before transport to [place] this evening Last updated by Wally Dove MD at 01/25/22 07:37 Sign Out Comment: Patient signed out to Dr. Harding at time of shift change with transfer to [place] pending. Last updated by Cassandra Sebastian MD at 01/25/22 14:59 Sign Out Comment: EE, awaiting placement; Juni will reconsider if diabetes more controlled Last updated by Wally Dove MD at 01/11/22 17:05 Sign Out Comment: Patient pending psychiatric placement. Patient stable throughout the night. No interventions needed. Last updated by Goyo Harding DO at 01/11/22 23:08 Sign Out Comment: continues to be tangential and talking to self, little sleep, sugars in the 300 range; pending placement. Last updated by Romie Robles MD at 01/12/22 08:21 Sign Out Comment: Patient has continued to have intermittent aggressive outbursts that are not directed at any individuals but has been heard screaming killed their kids. He did agree to take metformin earlier today. I have ordered Risperdal in hopes that he would agree to take this as an antipsychotic. Patient continues to await inpatient psychiatric treatment placement Last updated by Dominic Sebastian MD at 01/12/22 19:52 Sign Out Comment: Continues to be agitated more so this morning than previous. Refusing oral medications but did take IM Zyprexa. Continues to wait for psychiatric bed availability. Last updated by Romie Robles MD at 01/13/22 07:21 Sign Out Comment: Follow-up on medicine consult. Patient awaiting psychiatric inpatient placement. Last updated by Dominic Sebastian MD at 01/13/22 15:41 Discharge Plan Disposition Patient Disposition: STILL A PATIENT Condition: Serious Discharge Details Clinical Impression: Schizoaffective disorder, Diabetes mellitus, Anemia Primary Care Provider: Unknown,Unknown ED Provider: Cassandra Sebastian Home Meds and New Rx's Prescriptions: No Action diphenhydramine HCl [Benadryl] 25 mg Capsule 25 mg PO HS PRN PRN
--- NOTE | 2022-01-25 11:49 | MHPN_ITS ---
Date of service: 01/24/22 Time of Service: 11:49 Mental Health Emergency Note Release [facility] release signed:: Yes Reason for Visit Client is being held on a MH Warrant. This is his daily assessment. His screening tools have not been completed as he is experiencing a thought disturbance so cannot focus to do them. In the last 2 weeks has the pt presented for ES prior to today?: Yes, presented at [facility] ED Client Information Client is: New Well Housed: No,status: Homeless Non Suicidal Self Injury Current: No History: No Safety Risk/Harm to Self or Others Current Ideation to Harm Self or Others: No Risk: Does risk to harm exist?: yes. Access to means: No. Risk: Moderate Risk Duty to warn indicated: No Asssessment/Mental Status Appearance: Disheveled Attitude: Cooperative and Friendly Behavior: Unremarkable Speech: Other (Studdered ) Affect: Normal Mood: Stressed and Anxious Thought process: Goal directed, Circumstational and Tangential Hallucinations: No Delusions: No Attention: Unremarkable Perception: Not impaired Orientation: Disoriented in Situation Memory: Impaired in: Immediate Insight: Fair Judgement: Fair Neurovegetative Symptoms Sleep: Increase Appetitie: No change Interests: No change Energy: No change Libido: Not applicable Substance Use: Do you use nicotine?: No Have you used substances in the last 7 days?: No Additional Issues: Assaultive/Threatening Behavior: No Medical Concerns: Yes Client engaged in active self harm w/weapon: No Threatening to run away: No Child reported abuse/neglect: No Voluntarily presenting for services: No Domestic violence is a concern: No Extreme Psychosis or extreme behavior is present: No Impression Client appears to continue to improve in this controlled environment. He is more appropriate in conversations but is observed that he has a stronger shudder that was not as noticeable to this clinician when he first came to the ED. He got a recliner chair this past weekend and this has helped his shoulder and back pain significantly per his report. There is still concerns that he would struggle with maintaining the minimal level of self care regarding medications if he were to be released without further assessment and support, therefore it is this clinician's professional opinion that he still receive a higher level of care for a period longer. Resources Reosurces reviewed and given:: [facility] Plan/Disposition Recommended Disposition: Hospitalization facilities contacted. Plan: Client accepted to [facility]. Once transportation is secured the client will be transported. Person reported agreement to plan: Yes Facilities contacted if Applicable [facility] Accepted, Accepted/transfer pending. Information Sent to [facility]: Referral, Medication Compliance and Insurance prior authorization, Reports/communication Outcome discussed with: ED/Personnel Final Disposition/Discharge Final accepting facility/transferred to: [facility] Transportation Checklist completed and faxed: Yes Transport level: Private car
--- NOTE | 2022-01-25 12:55 | NUR.NOTE ---
Nursing Note: Verbal report given to Sharon Thomason RN at
--- NOTE | 2022-01-25 16:00 | CMSP_ITS ---
- If Service Date Differs Date of service: 01/25/22 Time of Service: 16:00 Care Management Safety Plan Status: Involuntary - Reason for Wait Reason for Wait: Inpatient Admission Safety plan has been established to meet the needs of the patient, and consideration of the care team, to adhere to patient goals, identify restrictions based on behavioral status, address nutrition, and determine allowed personal belongings, tools for hygiene and personal care. Determine level of activity including ambulation, level of supervision, visitors, and determine privileges based on behaviors and level of engagement by pt. No changes are made to his safety plan. SAFETY PLAN: 1. Will remain on SI/HI precautions. In Paper Clothes 2. Will remain in room under direct supervision of one-on-one staff at all times provided by [employer], WELDING TEACHER, INTERFACE CONTROL OFFICER towel inspector. 3. May have paper cups, plates, finger foods as well as a cardboard spoon to eat meals. 4. Follow [facility] Management of the Admitted Behavioral Health Patient policy. 5. Comfort bath system only. 6. No personal belongings 7. Visitors: None at this time. 8. Activities: Soft cart items and other activities at RN discretion. 9. Bathroom privileges with escort in the ED. 10. Phone: Limited to legal contacts via cordless hospital phone at RN discretion. 11. Due to INVOLUNTARY status, patient is being held at [facility] by the Department of Mental Health ([facility]). A Second Certification by Psychiatrist occurred on 01/10/22 and upheld the EE. Staff will provide de-escalation support (CPI) as needed. If patient wishes to leave [facility], staff will contact [facility] Crisis Screener ([phone]) and On-Call Clinical Trials Assistant ([phone]) as soon as possible. In the event of elopement, notify [place] [employer] ([phone]). Patient is currently involuntarily at [facility]. [facility] Frontline Service Representative will continue seeking placement. Please contact the [employer] Clinical Trials Assistant ([phone]) for any needed changes to Safety Plan. Safety plan has been provided to interdepartmental care team. Patient will be transported by [employer] at time of discharge.
--- NOTE | 2022-01-25 16:29 | PDOC.ERCMPRO ---
- If Service Date Differs Date of service: 01/25/22 Time of Service: 16:29 Care Management Progress Note S/O: Yadiel who remains on involuntary status continues to be cooperative and compliant with his diabetes medication. He has a bed offer at [facility] for later on this evening. He will be transported to [place] by [facility], as arranged by [facility]. A: Yadiel is a 46 year old male awaiting an involuntary psychiatric placement. P: Yadiel will remain on involuntary status at [facility] and will be reassessed twice daily by [facility] until a psychiatric bed can be secured for him. Referrals were faxed to [facility], [facility], [facility], and [facility] for review. CM will continue to follow. - Status Status: Involuntary - Reason for Wait Reason for Wait: Inpatient Admission
--- NOTE | 2022-01-25 19:38 | W.EDPROG ---
Date of service: 01/25/22 Time of Service: 17:00 Medical Decision Making pt calm and coopertive, no new complaints, is pending transfer to [place] for further psychiatric care Sign Out Sign Out Data: Sign Out Comment: Patient has BMP pending this morning and will need potentially further insulin dosing until blood sugar better controlled. He is on an EE pending second certification. Has been calm and cooperative overnight. Last updated by Romie Robles MD at 01/10/22 07:50 Sign Out Comment: EE. Continues to refuse meds and have outbursts at times but able to be redirected. Continue to monitor overnight while awaiting placement. Last updated by Ila Hrenandez DO at 01/13/22 23:03 Sign Out Comment: EE. Awaiting placement. Poorly controlled DM (intermittently not taking his metformin), Given subq insulin this morning with breakfast Last updated by Wally Dove MD at 01/14/22 07:37 Sign Out Comment: ee for decompensated schizophrenia, on sliding scale insulin as he has repeatedly refused metformin Last updated by Hi Cardoza MD at 01/14/22 17:54 Sign Out Comment: No events overnight. Awaiting placement. Last updated by Ila Hernandez DO at 01/15/22 07:02 Sign Out Comment: no events during the day Last updated by Hi Cardoza MD at 01/15/22 18:36 Sign Out Comment: No events overnight. Awaiting placement. Last updated by Ila Hernandez DO at 01/16/22 01:15 Sign Out Comment: Patient signed out to Dr. Dove at time of shift change awaiting inpatient placement. Last updated by Cassandra Sebastian MD at 01/16/22 15:42 Sign Out Comment: EE. Awaiting placement. Mental health to reassess in AM. If other psych patient upstairs gets placed beforehand, consider [facility] admission Last updated by Wally Dove MD at 01/16/22 23:04 Sign Out Comment: Continues on EE and awaiting placement. Still rambling overnight and mildly agitated but overall no issues. Last updated by Romie Robles MD at 01/17/22 08:00 Sign Out Comment: no issues during the day Last updated by Hi Cardoza MD at 01/17/22 18:46 Sign Out Comment: 2nd cert performed. Glucose improved to mid 300's. Last updated by Greg Mart MD at 01/10/22 18:34 Sign Out Comment: No issues overnight. Remains on EE and still continuously talking to self in the room, periodically becoming somewhat agitated. Overall redirectable and cooperative. Last updated by Romie Robles MD at 01/18/22 07:32 Sign Out Comment: EE. Awaiting placement. Last updated by Dominic Sebastian MD at 01/18/22 16:00 Sign Out Comment: EE. Awaiting placement. Last updated by Ila Hernandez DO at 01/18/22 23:30 Sign Out Comment: Awaiting inpatient psychiatric treatment placement. EE. Last updated by Dominic Sebastian MD at 01/19/22 08:04 Sign Out Comment: still pending placement, no issues during the day Last updated by Hi Cardoza MD at 01/19/22 17:04 Sign Out Comment: Patient stable after my shift. Pending placement. Last updated by Goyo aHrding DO at 01/20/22 00:30 Sign Out Comment: No issues overnight, remains stable and unchanged. Last updated by Romie Robles MD at 01/20/22 07:26 Sign Out Comment: no issues during the day Last updated by Hi Cardoza MD at 01/20/22 17:11 Sign Out Comment: code farfan this evening; calmed after we were going to give him meds; awaiting placement Last updated by Wally Dove MD at 01/20/22 23:15 Sign Out Comment: No events overnight. Awaiting placement. Last updated by Ila Hernandez DO at 01/21/22 03:43 Sign Out Comment: Blood sugars better and patient taking his glucophage. Will need to continue to follow and dose with insulin as needed. He is pending placement after 2nd certification yesterday. Last updated by Romie Robles MD at 01/11/22 07:43 Sign Out Comment: Patient awaiting psychiatric treatment placement. Patient intermittently screaming obscenities and specifically stating kill the children repetitively. Patient did have a code valadez earlier this afternoon when he initially refused to go back in his room demanding that we provide his bag. De-escalation was successful and patient has since been cooperative and calm. Last updated by Dominic Sebastian MD at 01/21/22 19:49 Sign Out Comment: No events overnight. Awaiting placement. Last updated by Ila Hernandez DO at 01/22/22 06:29 Sign Out Comment: Awaiting placement. Plan for repeat CBC and chemistry when patient agreeable. Last updated by Dominic Sebastian MD at 01/22/22 19:42 Sign Out Comment: Pt refused lab draw, will reattempt this morning. No other events overnight. Awaiting placement. Last updated by Ila Hernandez DO at 01/23/22 07:03 Sign Out Comment: still pending placement for decompensated schizophrenia Last updated by Hi Cardoza MD at 01/23/22 07:42 Sign Out Comment: will be accepted upstairs for admission if no code greys overnight; EE awaiting placement Last updated by Wally Dove MD at 01/23/22 23:42 Sign Out Comment: No events overnight. Plan is for admission upstairs today if no code farfan. Last updated by Ila Hernandez DO at 01/24/22 02:21 Sign Out Comment: awaiting psych placement. Last updated by Dominic Sebastian MD at 01/24/22 20:12 Sign Out Comment: need doc to doc signout before transport to [place] this evening Last updated by Wally Dove MD at 01/25/22 07:37 Sign Out Comment: Patient signed out to Dr. Cardoza at time of shift change with transfer to [place] pending. Last updated by Cassandra Sebastian MD at 01/25/22 15:05 Sign Out Comment: EE, awaiting placement; Paolafel[place]inessa will reconsider if diabetes more controlled Last updated by Wally Dove MD at 01/11/22 17:05 Sign Out Comment: Patient pending psychiatric placement. Patient stable throughout the night. No interventions needed. Last updated by Goyo Harding DO at 01/11/22 23:08 Sign Out Comment: continues to be tangential and talking to self, little sleep, sugars in the 300 range; pending placement. Last updated by Romie Robles MD at 01/12/22 08:21 Sign Out Comment: Patient has continued to have intermittent aggressive outbursts that are not directed at any individuals but has been heard screaming killed their kids. He did agree to take metformin earlier today. I have ordered Risperdal in hopes that he would agree to take this as an antipsychotic. Patient continues to await inpatient psychiatric treatment placement Last updated by Dominic Sebastian MD at 01/12/22 19:52 Sign Out Comment: Continues to be agitated more so this morning than previous. Refusing oral medications but did take IM Zyprexa. Continues to wait for psychiatric bed availability. Last updated by Romie Robles MD at 01/13/22 07:21 Sign Out Comment: Follow-up on medicine consult. Patient awaiting psychiatric inpatient placement. Last updated by Dominic Sebastian MD at 01/13/22 15:41 Discharge Plan Disposition Patient Disposition: [facility] Condition: Serious Discharge Details Clinical Impression: Schizoaffective disorder, Diabetes mellitus, Anemia Primary Care Provider: Unknown,Unknown ED Provider: Hi Cardoza Home Meds and New Rx's Prescriptions: No Action diphenhydramine HCl [Benadryl] 25 mg Capsule 25 mg PO HS PRN PRN Discharge Data Discharge Date/Time-TO BE ENTERED AT DEPARTURE: 01/25/22 18:42
== END 2022-01-25 18:42 | disposition short-term general hospital (02) ==
PROVIDERS: Emergency Medicine; Internal Medicine; Student in an Organized Health Care Education/Training Program; Emergency Provider Emergency Medicine
DX: F25.9 Schizoaffective disorder, unspecified (principal); E11.65 Type 2 diabetes mellitus with hyperglycemia; Z79.4 Long term (current) use of insulin; Z79.899 Other long term (current) drug therapy
CPT/HCPCS: 36415; 36416; 80048; 80053; 80061; 80307; 82962; 85027; 86900; 86901; 87635; 93005; 96360; 96361; 96372; 99283; 99285; 80178; 80320; 80329; 81003; 81015; 82607; 82728; 82746; 83036; 83540; 83550; 83615; 83735; 84439; 84443; 85025; 87086; 93010; J1815; J3490